=== PATIENT | male | born 1975 | race Caucasian/White ===

== ENCOUNTER 2016-06-10 10:27 | Emergency (ER) | payer OTHER ==
[~2016-06-10] VITALS: Ht 185.4 cm; Wt 128.0 kg
[~2016-06-10 10:27] MED LIST changes: -MELO7.5T5 PO
[2016-06-10 10:30] VITALS: TEMP 36.9; Ht 185.4 cm; Wt 128.0 kg
[2016-06-10 10:40] VITALS: O2SAT 99
[2016-06-10] MEDS ORDERED: NITROGLYCERIN 0.4 MG SL PER TAB CHARGE SL PRN (10:45)
--- NOTE | 2016-06-10 10:50 | EMERGENCY ROOM VISIT NOTE ---
History Report prepared by Tyson: Carlene Mae Under the Supervision of: Dr. Cuate Mccollum M.D. First contact with patient: 10:29 Stated Complaint: HYPERTENSION History of Present Illness The patient is a 41 year old male who presents to the Emergency Room with complaints of persistent hypertension that began today prior to arrival. He states that he took his blood pressure and states that it was 212 systolically. The patient states that he has not history of hypertension, denying taking anything for it. He states that recently he has been under increased stress and states that he didn't sleep well last night. The patient states that today he was talking with a patient when he felt unstable on his feet and began feeling lightheaded. He states that he became diaphoretic and additionally notes chest pain. The patient currently rates his chest pain discomfort as a 1- 2/10 in severity and denies taking any nitroglycerin prior to arrival. He states that his blood pressure typically runs around 140 mmHg systolically. The patient states that he performed an echocardiogram on himself and states that it was normal. He denies any shortness of breath since his hypertension began. The patient denies any recent cough, cold, or fever. He states that he took Sudafed this morning. Source of History: patient Onset: today prior to arrival Position: other (global) Symptom Intensity: 212 systolically Quality: other (hypertension) Timing: other (persistent) Associated Symptoms: + chest pain (1-2/10), + diaphoresis Note: Associated Symptoms: lightheadedness, unstable on feet Review of Systems All systems have been listed, reviewed, and are negative other than those previously mentioned. Please see Additional Medical History Sheet. Past Medical & Surgical Medical Problems: (1) Back pain (2) No pertinent past medical history Surgical Problems: (1) Rupture of right biceps tendon (2) Status post labral repair of shoulder Family History Hypertension Social History Smoking Status: Never Smoker Smokeless Tobacco Use: No Alcohol Use: occasionally Drug Use: none Marital Status: Housing Status: lives with family Occupation Status: employed Current/Historical Medications Scheduled Loratadine (Claritin), 10 MG PO DAILY Scheduled PRN Meloxicam (Mobic), 7.5 MG PO DAILY PRN for Pain Naproxen (Aleve), 220 MG PO for Pain Oxycodone/Acetaminophen 5MG/325MG (Percocet 5MG/325MG), 1 TABLET PO Q6H PRN for Pain Allergies Coded Allergies: No Known Allergies (Unverified , 02/05/15) Physical Exam Vital Signs Date Time Temp Pulse Resp B/P Pulse Ox O2 Delivery O2 Flow Rate FiO2 06/10/16 12:55 96 20 150/118 96 Room Air 06/10/16 12:28 91 20 130/90 98 Room Air 06/10/16 12:09 99 Room Air 06/10/16 12:06 89 20 144/89 06/10/16 11:32 95 22 06/10/16 11:27 98 27 06/10/16 11:22 103 29 06/10/16 11:17 102 19 06/10/16 11:16 136/103 06/10/16 11:13 148/106 06/10/16 11:12 106 21 06/10/16 11:07 97 23 155/112 06/10/16 11:02 106 24 06/10/16 10:57 108 20 06/10/16 10:52 88 27 06/10/16 10:47 117 25 06/10/16 10:42 95 17 97 Room Air 06/10/16 10:40 99 Room Air 06/10/16 10:37 94 26 98 Room Air 06/10/16 10:35 99 Room Air 06/10/16 10:32 93 30 99 Room Air 06/10/16 10:30 36.9 88 17 174/115 99 Room Air 06/10/16 10:29 94 Physical Exam GENERAL: Patient awake, alert, appears anxious, markedly diaphoretic. SKIN: No erythema, pallor, cyanosis or rash HEENT: Normal head, pupils equal, reactive to light and accommodation. Ears normal. Oral cavity and posterior pharynx appear normal. Neck: Without adenopathy, no neck vein distention. LUNGS: Clear to auscultation. No wheezes, no rales, no rhonchi. HEART: Regular rate. No murmurs. No gallops. No rubs ABDOMEN: No masses, no rebound, no hepatomegaly or splenomegaly. EXTREMITIES: No signs of trauma. No pedal or pretibial edema. No calf or thigh tenderness. NEUROLOGIC: Cranial nerves II-XII within normal limits. No gross motor sensory function deficits. Medical Decision & Procedures ER Provider Diagnostic Interpretation: X ray results are stated below per my interpretation and the radiologist's interpretation. CHEST ONE VIEW PORTABLE CLINICAL HISTORY: Atypical chest pain and hypertension COMPARISON STUDY: No previous studies for comparison. FINDINGS: The heart is at the upper limits of normal in size. There is no failure. There is no focal pulmonary consolidation. There are no pleural effusions.[ IMPRESSION: No active disease in the chest. Electronically signed by: Pérez Holt M.D. 06/10/2016 10:59 AM Dictated Date/Time: 06/10/2016 10:59 AM Laboratory Results 06/10/16 10:30 Red Blood Count 5.26, Mean Corpuscular Volume 92.2, Mean Corpuscular Hemoglobin 32.7, Mean Corpuscular Hemoglobin Concent 35.5, Mean Platelet Volume 10.9, Neutrophils (%) (Auto) 70.6, Lymphocytes (%) (Auto) 18.2, Monocytes (%) (Auto) 8.0, Eosinophils (%) (Auto) 1.5, Basophils (%) (Auto) 0.3, Neutrophils # (Auto) 8.08, Lymphocytes # (Auto) 2.08, Monocytes # (Auto) 0.91, Eosinophils # (Auto) 0.17, Basophils # (Auto) 0.04 06/10/16 10:30 Test 06/10/16 10:30 06/10/16 12:09 White Blood Count 11.44 K/uL (4.8-10.8) Red Blood Count 5.26 M/uL (4.7-6.1) Hemoglobin 17.2 g/dL (14.0-18.0) Hematocrit 48.5 % (42-52) Mean Corpuscular Volume 92.2 fL (80-100) Mean Corpuscular Hemoglobin 32.7 pg (25-34) Mean Corpuscular Hemoglobin Concent 35.5 g/dl (32-36) Platelet Count 255 K/uL (130-400) Mean Platelet Volume 10.9 fL (7.4-10.4) Neutrophils (%) (Auto) 70.6 % Lymphocytes (%) (Auto) 18.2 % Monocytes (%) (Auto) 8.0 % Eosinophils (%) (Auto) 1.5 % Basophils (%) (Auto) 0.3 % Neutrophils # (Auto) 8.08 K/uL (1.4-6.5) Lymphocytes # (Auto) 2.08 K/uL (1.2-3.4) Monocytes # (Auto) 0.91 K/uL (0.11-0.59) Eosinophils # (Auto) 0.17 K/uL (0-0.5) Basophils # (Auto) 0.04 K/uL (0-0.2) RDW Standard Deviation 40.9 fL (36.4-46.3) RDW Coefficient of Variation 12.1 % (11.5-14.5) Immature Granulocyte % (Auto) 1.4 % Immature Granulocyte # (Auto) 0.16 K/uL (0.00-0.02) Anion Gap 9.0 mmol/L (3-11) Est Creatinine Clear Calc Drug Dose 139.1 ml/min Estimated GFR () 109.4 Estimated GFR (Non- 94.4 BUN/Creatinine Ratio 10.0 (10-20) Calcium Level 9.3 mg/dl (8.5-10.1) Total Bilirubin 0.5 mg/dl (0.2-1) Aspartate Amino Transf (AST/SGOT) 53 U/L (15-37) Alanine Aminotransferase (ALT/SGPT) 88 U/L (12-78) Alkaline Phosphatase 98 U/L (45-117) Total Creatine Kinase 206 U/L (39-308) Creatine Kinase MB 1.6 ng/ml (0.5-3.6) Creatine Kinase MB Ratio 0.8 (0-3.0) Troponin I < 0.015 ng/ml (0-0.045) Total Protein 7.9 gm/dl (6.4-8.2) Albumin 4.0 gm/dl (3.4-5.0) Globulin 3.9 gm/dl (2.5-4.0) Albumin/Globulin Ratio 1.0 (0.9-2) Chemistry Specimen Hemolysis Bedside Troponin I 0.280 ng/ml (0-0.045) Laboratory results as stated above per my review. Medications Administered Medications (Trade) Dose Ordered Sig/Ki Route Start Time Stop Time Status Last Admin Dose Admin Nitroglycerin 0.4 mg 0.4 mg Q5M PRN SL 06/10/16 10:45 06/10/16 13:12 DC 06/10/16 11:12 0.4 MG Sodium Chloride (Nss 1000ml) 1,000 ml @ 500 mls/hr Q2H STAT IV 06/10/16 11:09 06/10/16 13:08 DC 06/10/16 11:12 500 MLS/HR ECG Indication: other (hypertension) Rate (beats per minute): 89 Rhythm: normal sinus Findings: no acute ischemic change, no ectopy Change: Repeat EKG #1 at 1026: normal sinus rhythm 91 beats per minute. No acute ischemic change, no ectopy. Repeat EKG #2 at 1225: normal sinus rhythm 85 beats per minute. no acute ischemic change, no ectopy. ED Course 1031: Past medical records reviewed. The patient was evaluated in room C4. A complete history and physical examination was performed. 1045: Ordered Nitroglycerin 0.4 mg SL. 1107: I reevaluated the patient and he is feeling about the same. He is requested fluids, noting that he feels dry. 1109: Ordered Sodium Chloride 1000 ml @ 500 mls/hr IV. 1128: I reevaluated the patient and he has no chest pain, his blood pressure has come down, and his first troponin is negative. 1240: I reevaluated the patient and I discussed his repeat troponin results. He states that he does not wish to stay for further evaluation in the hospital. I discussed the treatment plan with him and he verbalized complete understanding and agreement. He is ready to go home. Medical Decision I considered multiple diagnoses including myocardial infarction, hypertensive urgency, chest wall pain, pericarditis, myocarditis, aortic emergencies, pulmonary embolism, congestive heart failure, GI causes, and other significant cardiopulmonary disorders. The patient arrived here with chest pain diaphoresis and an elevated blood pressure. Multiple labs, EKG and imaging were obtained. History of first troponin was not elevated. His second troponin was elevated. EKGs did not change. The patient's blood pressure came down and he felt significantly better. The diaphoresis resolved. I discussed options with the patient. I believe the patient should be monitored further and possibly stressed but the patient declined that offer. We did agree to have the patient repeat his troponin later today. Again I made it clear that he should stay in the hospital until cleared. I offered the option of having a catia designer see him. The patient refused that offer and felt it necessary to return to work. Impression Primary Impression: Substernal precordial chest pain Additional Impressions: Elevated blood pressure reading Elevated troponin I level Scribe Attestation The scribe's documentation has been prepared under my direction and personally reviewed by me in its entirety. I confirm that the note above accurately reflects all work, treatment, procedures, and medical decision making performed by me. Departure Information Dispostion Home / Self-Care Referrals Christian Agrawal M.D. (PCP) Forms HOME CARE DOCUMENTATION FORM, IMPORTANT VISIT INFORMATION Patient Instructions My [facility] Additional Instructions REST Return here immediately if you have any chest pain. Repeat troponin later today. Follow-up with your family physician within the next 7 days. Problem Qualifiers
[2016-06-10 10:52] LABS: BASO % 0.3 %; BASO ABS # 0.04 K/uL (0-0.2); COMPLETE YES; EOS % 1.5 %; HEMATOCRIT 48.5 % (42-52); IG% 1.4 %; LYMPH % 18.2 %; LYMPH ABS # 2.08 K/uL (1.2-3.4); MEAN CELL VOLUME 92.2 fL (80-100); MEAN CORPUSCULAR HEMOGLOBIN 32.7 pg (25-34); MEAN CORPUSCULAR HGB CONC 35.5 g/dl (32-36); MEAN PLATELET VOLUME 10.9 fL (7.4-10.4); NEUT % 70.6 %; PLATELET COUNT 255 K/uL (130-400); RED BLOOD COUNT 5.26 M/uL (4.7-6.1); WHITE BLOOD COUNT 11.44 K/uL (4.8-10.8)
--- NOTE | 2016-06-10 11:01 | DIAGNOSTIC IMAGING REPORT ---
CHEST ONE VIEW PORTABLE CLINICAL HISTORY: Atypical chest pain and hypertension COMPARISON STUDY: No previous studies for comparison. FINDINGS: The heart is at the upper limits of normal in size. There is no failure. There is no focal pulmonary consolidation. There are no pleural effusions.[ IMPRESSION: No active disease in the chest. Electronically signed by: Pérez Holt M.D. 06/10/2016 10:59 AM Dictated Date/Time: 06/10/2016 10:59 AM
[2016-06-10] MEDS ORDERED: SODIUM CHLORIDE 0.9% 1000ML 1,000 ML IV STA (11:09)
[2016-06-10 11:18] LABS: ALT/SGPT 88 U/L (12-78); AST/SGOT 53 U/L (15-37); BLOOD UREA NITROGEN 10 mg/dl (7-18); CALCIUM 9.3 mg/dl (8.5-10.1); CARBON DIOXIDE 25 mmol/L (21-32); CHLORIDE 105 mmol/L (98-107); GLUCOSE 87 mg/dl (70-99); SODIUM 139 mmol/L (136-145)
[2016-06-10] MEDS ORDERED: MELO7.5T5 PO (11:19)
[2016-06-10 11:21] LABS: ALKALINE PHOSPHATASE 98 U/L (45-117); CKMB/CK RATIO 0.8 (0-3.0)
[2016-06-10 12:55] VITALS: BP 150/118; PULSE 96; O2SAT 96
== END 2016-06-10 12:57 | disposition home or self-care (01) ==
LOC: EDBD 10:27 → EDUNIT# 10:27 → C.EDC 10:28 → EEVIPCON 10:28 → C.EDC 12:57
DX: R07.2 Precordial pain (principal); R03.0 Elevated blood-pressure reading, without diagnosis of hypertension; R79.89 Other specified abnormal findings of blood chemistry

== ENCOUNTER → 2016-06-10 | Outpatient (CLI) | payer OTHER ==
[~2016-06-10] MED LIST: CLR10 PO; MELO7.5T5 PO; NAPR1TAB9 PO; OXYC-57 PO
--- NOTE | 2016-06-13 07:11 | EDITING REQUIRED CODING QUERY ---
TREATMENT RENDERED WITHOUT A DIAGNOSIS To promote full compliance with coding requirements relating to patient care, physician participation is requested in all cases of flight agent uncertainty. Please assist us with the question(s) below: Coding Question: DOS 06/10 Troponin Diagnosis: Chest Pain Provider Response: Thank you! Akanksha Borjas
== END | disposition home or self-care (01) ==
LOC: C.LAB 15:17
PROVIDERS: ATTEND Emergency Medicine
DX: R07.9 Chest pain, unspecified (principal)

== ENCOUNTER 2024-07-12 04:13 | Inpatient (IN) ==
[2024-07-12] MEDS ORDERED: SODIUM CHLORIDE 0.9% 50 ML IV PRN ×2 (04:35→06:54)
[2024-07-12] MEDS ORDERED: SODIUM CHLORIDE 0.9% 100 ML IV PRN ×2 (04:35→06:54)
[2024-07-12 04:38] LABS: iSTAT Creatinine 1.7 mg/dl (0.6-1.3); iSTAT Hemoglobin 12.2 g/dl (14.0-18.0); iSTAT Ionized Calcium 1.08 mmol/l (1.12-1.32); iSTAT Potassium 3.6 mmol/L (3.3-5.0)
[2024-07-12 04:56] LABS: Hematocrit (blood only) 35.8 % (42.0-52.0); Hemoglobin 10.9 g/dl (14.0-18.0); Mean Corpuscular Hemoglobin 25.9 pg (25.0-34.0); Mean Corpuscular Hgb Conc 30.4 g/dL (32.0-36.0); Nucleated RBC # (auto) 0.03 K/uL (0.00-0.12); Nucleated RBC % (auto) 0.1 %; Platelet Count 336 K/uL (130-400); RDW Coefficient of Variation 15.7 % (11.5-14.5); RDW Standard Deviation 48.4 fL (36.4-46.3); Red Blood Count 4.21 M/uL (4.70-6.10); White Blood Count 22.13 K/ul (4.8-10.8)
--- NOTE | 2024-07-12 05:13 | Emergency Department Note ---
Impression & Plan Acute hemorrhage, Hemorrhage of varicose veins of right lower extremity, Syncope and collapse ED Provider Note NAME: SARAH BETH YI AGE: 49 SEX: Male INFORMANT: Patient and EMS ED PROVIDER(S): Zeferino Harry MD CHIEF COMPLAINT: Bleeding PLAN: Disposition: Admitted to the ICU Outpatient prescription management: none Referral: None MEDICAL DECISION MAKING: Patient presented with acute hemorrhage. Source control was easily achieved with a Surgicel dressing along with a lidocaine with epinephrine soaked 2 x 2. Pressure was applied with Coban and then changed to an Kamlesh wrap. No additional hemorrhage occurred. He was hypotensive but not tachycardic. Patient notes he was in normal state of health prior to the event. IV access was obtained and the patient was started on saline fluid boluses. His initial i-STAT revealed hemoglobin of 12. Blood glucose was mildly elevated. The patient received 2 L of normal saline via pressure bag. He was hypotensive and then his blood pressure did improve up to 95 systolic. Patient was given supplemental oxygen. He initially had tachypnea and that did improve. Patient denied any pain initially but after an hour or so in the bed he noted his back was bothering him. He notes chronic back pain and this feels the same. Patient was found to have a significant leukocytosis on CBC of 22,000. His formal hemoglobin was 10.9 after the 2 L. The patient likely has hemorrhaged at least 4 units by history and the fact that his hemoglobin on the outpatient setting on epic review was over 13. A repeat H&H was ordered. Lactate ordered. Blood cultures ordered as well. By history patient denies any recent infectious issues. He noted some mild dyspnea on exertion over the last several weeks and attributed to his low back pain. Patient was not taking chronic steroids. He is not using any beta-blockers. He states he is only taking his lisinopril. Patient did admit to alcohol use and his blood alcohol level was 167 mg/dL. Additional IV fluids were administered. Consultation was made with the [facility] hospitalist service, Dr. Zuniga. Patient was evaluated in the ER. The patient remained persistently hypotensive. Serum lactate was elevated. Patient was empirically given Zosyn and daptomycin for broad-spectrum sepsis coverage although the history does not point towards an infectious etiology. CT imaging of the head was ordered due to the syncope although no significant signs of trauma were found. Patient had no neck pain. Dissection study of the chest abdomen and pelvis was ordered due to the persistent hypotension. Critical care medicine was consulted. Patient was evaluated in the emergency department by Clint Anderson NP working with Dr. Dougherty. Case was discussed and reviewed at the bedside. He asked for the patient to receive an amp of sodium bicarb as well as calcium. Patient's ionized calcium was low. He had a mild elevation of blood glucose. Patient had elevated anion gap. Discussed any ingestions with the patient and he adamantly denied anything except for ethyl alcohol. Patient had a slight elevation of cardiac troponin. Critical care asked for an empiric dose of fomepizole and this was ordered. As liter #4 was going and I did initiate IV Levophed. They did place an right radial A-line. With the additional amp of bicarb, amp of calcium, and the start of the Levophed patient's blood pressure did improve to 115 systolic via A-line. I did discuss the case with on-call cardiology, Dr. Olvera. Reviewed the history and treatment at this point. Did request for a bedside echo to be done and he agreed. Repeat cardiac troponin was elevated at 86. Patient continued to deny chest pain. His procalcitonin was normal as well. Eller catheter was ordered to monitor fluid output but also to obtain a urinalysis and talk screen. VBG was done and his pH was 7.27 and the remainder of the findings were within normal limits. Critical care also did request 1 unit of packed red blood cell transfusion this was ordered. Patient did consent to this. Patient was tired but answering questions appropriately. Patient was taken emergently to CT imaging which did not reveal a significant intracranial hemorrhage or aortic dissection. No pneumothorax seen. Official radiology read is pending at this time. Patient was transferred to the ICU for further resuscitation and management. I refer you to the EMR for further details. Care/management discussed with: Case management, lab, internal medicine, cardiology, critical care Level of care consideration(s): After review of the information above and other included data, I feel the patient requires escalation of care to ICU admission Triage Nursing notes: reviewed and agree them. Vital Signs: reviewed and remarkable for hypotension Additional History obtained from: EMS as per HPI Chronic Medical/Social Conditions affecting care: HTN Prior/ Outside/ External records reviewed: none Differential Diagnosis: Vasovagal event, dehydration, infection, hypoglycemia, electrolyte abnormalities, cardiac sources, intracerebral event, pulmonary embolism, seizure, toxicologic, neurologic, as well as other pathologies. Diagnostics, independently interpreted by me: EC Lead ECG performed and revealed NS rhythym at 82, normal [place], QRS normal. No elevation or depression. No PACs. No PVCs Cardiac Monitoring: Cardiac monitoring ordered by me: The patient was placed on continuous cardiac monitoring and observed. It revealed a normal sinus rhythm at 82 beats per minute without ectopy or evidence of dysrhythmia. Medical decision rules: none Imaging studies: Chest x-ray. Findings: A chest x-ray was performed and revealed no pneumothorax, effusion, infiltrate, pulmonary edema, free air under the diaphragm. Mediastinum is mildly widened although this is a supine study. Formal CT reads are pending: Head CT: A noncontrast CT scan of the head was performed and was negative for tumor, fracture, intracranial hemorrhage, or other acute pathology. CT dissection study is negative for aortic dissection or aneurysm per my interpretation. No obvious pneumonia or pneumothorax seen. HPI: 49 year old Male arrives for evaluation of bleeding. This started sometime around 0200 and is from a superficial varicosity in the distal RLE. Patient thinks he brushed it in the shower. Had significant bleeding. Notes becoming lightheaded and had a syncopal episode. He did call 911. First responders had to forecfully enter residence. EMS noted signifcant blood on scene but also were concerned bleeding was washed down the drain. The patient also notes the following associated symptoms, diaphoresis, weakness, The patient has received a start of a saline bolus for relieving factors. Current pain is rated as 0/10. EMS noted a pressure of 140 systolic. On arrival patient had BP of 74/52. Pt denies headache, fevers, visual changes, neck pain, chest pain, breathing difficulties, nausea, vomiting, abdominal pain, new back pain, melena, hematochezia, urinary symptoms, numbness, lymphadenopathy, rash, or other complaints. PAST MEDICAL HISTORY: See Below, HTN PAST SURGICAL HISTORY: See Below, SOCIAL HISTORY: See Below, occasional alcohol HOME MEDICATIONS: See Below ALLERGIES: See Below VITALS: See Below PHYSICAL EXAMINATION: GENERAL: Awake, ill-appearing, in distress HENT: Normocephalic, atraumatic. Oropharynx unremarkable. Blood noted at nares without TTP or septal hematoma. EYES: Normal conjunctiva. Sclera non-icteric. NECK: Inspection normal. Non-tender. Supple. No nuchal rigidity. FROM. No masses. RESPIRATORY: Clear to auscultation. No wheezes. No rales. Mildly increased respiratory effort. CARDIAC: Normal rate. Normal rhythm. No murmurs. No rubs. Extremities warm and well perfused. Pulses equal. No JVD. GI: Soft, non-distended. No tenderness to palpation. No rebound or guarding. No masses. RECTAL: Deferred. MUSCULOSKELETAL: Atraumatic upper extremities and LLE. Tiny abrasion anterior distal morales and punctate bleeding varicose vein. No tenderness to palpation of deformity. Chest examination reveals no tenderness. The back is symmetrical on inspection without obvious abnormality. There is no CVA tenderness to palpation. No joint edema. Calves are equal size bilaterally and non-tender. No edema. No discoloration. NEURO: Normal sensorium. No sensory or motor deficits noted. SKIN: No rash or jaundice noted. PROCEDURES: none CRITICAL CARE: I have personally spent 140 minutes of critical care time in the direct management of this patient. This includes bedside care, interpretation of diagnostic studies, and testing, discussion with consultants, patient, significant other and other required patient management activities. These minutes are in excess of all separately billable procedures. OBSERVATION NOTE: none Past Med/Surg History Problem List Syncope and collapse (Acute) Hemorrhage of varicose veins of right lower extremity (Acute) Acute hemorrhage (Acute) Thoracic back pain Lumbar facet arthropathy Lumbago Lumbar spinal stenosis Spasm of back muscles (Acute) Social History Smoking Status: Unknown if ever smoked Preferred Language: Bhutanese Communication Ability: Effective Feels Safe at Home: Yes Allergies Allergies Allergy/AdvReac Type Severity Reaction Status Date / Time No Known Allergies Allergy Verified 09/17/20 08:36 Home Meds Home Medications Medication Instructions Recorded Confirmed lisinopril 40 mg tablet 40 mg PO DAILY 01/17/18 11/11/20 loratadine 10 mg tablet 10 mg PO DAILY 01/17/18 11/11/20 oxycodone-acetaminophen 10 mg-325 1 tab PO Q6H PRN 08/24/20 11/11/20 mg tablet (Percocet) pregabalin 200 mg capsule 200 mg PO BID 08/24/20 11/11/20 pregabalin 50 mg capsule 50 mg PO DAILY 08/24/20 11/11/20 sertraline 100 mg tablet 100 mg PO DAILY 09/17/20 11/11/20 Results & Data (ED) Vital Signs Vital Signs - 24 hr 07/12/24 04:09 07/12/24 04:09 07/12/24 04:20 Temperature 36.5 C Temperature Source Oral Pulse Rate 79 88 Pulse Rate [Right Finger] 79 Pulse Rate from SpO2 Sensor Respiratory Rate 27 H 26 H 35 H Respiratory Effort / Characteristics Labored Blood Pressure 74/52 L 75/47 L Blood Pressure [Right Arm] 75/54 L Blood Pressure Mean 59 69 Blood Pressure Mean [Right Arm] 61 Pulse Oximetry 97 95 94 Oxygen Delivery Method Room Air Room Air Sepsis Recent Fever Within 48 Hours No Sepsis New/Unexplained Change in Mental Status No Sepsis Action Taken by Nursing No Action Required Arterial BP Systolic Arterial BP Diastolic Arterial BP Mean Arterial Pulse Rate 07/12/24 04:22 07/12/24 04:33 07/12/24 04:47 Temperature Temperature Source Pulse Rate 88 76 83 Pulse Rate [Right Finger] Pulse Rate from SpO2 Sensor Respiratory Rate 21 30 H Respiratory Effort / Characteristics Blood Pressure 54/37 L Blood Pressure [Right Arm] Blood Pressure Mean 42 Blood Pressure Mean [Right Arm] Pulse Oximetry 97 95 Oxygen Delivery Method Room Air Sepsis Recent Fever Within 48 Hours Sepsis New/Unexplained Change in Mental Status Sepsis Action Taken by Nursing Arterial BP Systolic Arterial BP Diastolic Arterial BP Mean Arterial Pulse Rate 07/12/24 05:08 07/12/24 05:21 07/12/24 05:26 Temperature Temperature Source Pulse Rate 83 81 Pulse Rate [Right Finger] 78 Pulse Rate from SpO2 Sensor Respiratory Rate 30 H 15 Respiratory Effort / Characteristics Blood Pressure 94/31 L 61/31 L Blood Pressure [Right Arm] 80/30 L Blood Pressure Mean 57 36 Blood Pressure Mean [Right Arm] 46 Pulse Oximetry 97 100 99 Oxygen Delivery Method Room Air Sepsis Recent Fever Within 48 Hours Sepsis New/Unexplained Change in Mental Status Sepsis Action Taken by Nursing Arterial BP Systolic Arterial BP Diastolic Arterial BP Mean Arterial Pulse Rate 07/12/24 05:29 07/12/24 05:43 07/12/24 05:55 Temperature Temperature Source Pulse Rate 80 75 Pulse Rate [Right Finger] Pulse Rate from SpO2 Sensor Respiratory Rate 26 H 23 Respiratory Effort / Characteristics Blood Pressure 85/26 L 61/38 L 68/32 L Blood Pressure [Right Arm] Blood Pressure Mean 49 45 41 Blood Pressure Mean [Right Arm] Pulse Oximetry 99 98 99 Oxygen Delivery Method Sepsis Recent Fever Within 48 Hours Sepsis New/Unexplained Change in Mental Status Sepsis Action Taken by Nursing Arterial BP Systolic Arterial BP Diastolic Arterial BP Mean Arterial Pulse Rate 07/12/24 06:00 07/12/24 06:10 07/12/24 06:20 Temperature Temperature Source Pulse Rate 74 72 74 Pulse Rate [Right Finger] Pulse Rate from SpO2 Sensor 73 Respiratory Rate 24 17 Respiratory Effort / Characteristics Blood Pressure 68/32 L 71/41 L 59/41 L Blood Pressure [Right Arm] Blood Pressure Mean 44 45 47 Blood Pressure Mean [Right Arm] Pulse Oximetry 99 99 100 Oxygen Delivery Method Sepsis Recent Fever Within 48 Hours Sepsis New/Unexplained Change in Mental Status Sepsis Action Taken by Nursing Arterial BP Systolic Arterial BP Diastolic Arterial BP Mean Arterial Pulse Rate 07/12/24 06:21 07/12/24 06:51 07/12/24 07:09 Temperature Temperature Source Pulse Rate 74 76 73 Pulse Rate [Right Finger] Pulse Rate from SpO2 Sensor 74 73 Respiratory Rate 17 20 23 Respiratory Effort / Characteristics Blood Pressure Blood Pressure [Right Arm] Blood Pressure Mean Blood Pressure Mean [Right Arm] Pulse Oximetry 100 100 100 Oxygen Delivery Method Sepsis Recent Fever Within 48 Hours Sepsis New/Unexplained Change in Mental Status Sepsis Action Taken by Nursing Arterial BP Systolic 123 99 Arterial BP Diastolic 54 38 Arterial BP Mean 77 53 Arterial Pulse Rate 80 72 Laboratory Data 07/12/24 06:10 07/12/24 05:02 Lab Results 07/12/24 07/12/24 07/12/24 Range/Units 04:20 04:20 04:26 WBC 22.13 H (4.8-10.8) K/ul RBC 4.21 L (4.70-6.10) M/uL Hgb 10.9 L (14.0-18.0) g/dl POC Hgb 12.2 L (14.0-18.0) g/dl Hct 35.8 L (42.0-52.0) % POC Hct 36 L (42-52) % MCV 85.0 (80.0-100.0) fL MCH 25.9 (25.0-34.0) pg MCHC 30.4 L (32.0-36.0) g/dL RDW Std Deviation 48.4 H (36.4-46.3) fL RDW Coeff of Ronal 15.7 H (11.5-14.5) % Plt Count 336 (130-400) K/uL MPV 11.0 (9.4-12.4) fL Absolute Nucleated RBC 0.03 (0.00-0.12) K/uL Nucleated RBC % (auto) 0.1 % Neutrophils % (Manual) 51 % Lymphocytes % (Manual) 36 % Monocytes % (Manual) 3 % Eosinophils % (Manual) 3 % Metamyelocytes % (Man) 4 % Myelocytes % (Man) 3 % Neutrophils # (Manual) 11.29 H (1.40-6.50) K/uL Total Absolute Neuts 11.29 H (1.4-6.5) K/uL Lymphocytes # (Manual) 7.97 H (1.2-3.4) K/uL Total Abs Lymphocytes 7.97 H (1.2-3.4) K/uL Monocytes # (Manual) 0.66 H (0.11-0.59) K/uL Eosinophils # (Manual) 0.66 H (0-0.50) K/uL Metamyelocytes # (Man) 0.89 H (0-0) K/uL Myelocytes # (Manual) 0.66 H (0-0) K/uL VBG pH (7.36-7.41) VBG pCO2 (38-50) mmHg VBG pO2 mmHg VBG HCO3 mmol/L VBG O2 Saturation % VBG Base Excess mEq/L POC Sodium 131 L (135-144) mmol/L Sodium TNP POC Potassium 3.6 (3.3-5.0) mmol/L Potassium TNP POC Chloride 99 L (101-112) mmol/L Chloride 96 L (98-107) mmol/L Carbon Dioxide 11 L (21-32) mmol/L POC Total CO2 12 L (24-31) mmol/L Anion Gap TNP POC Anion Gap 25.0 (16-25) mmol/L POC BUN 5 L (7-18) mg/dl BUN 7 (6-23) mg/dl Creatinine 1.41 H (0.6-1.4) mg/dl POC Creatinine 1.7 H (0.6-1.3) mg/dl Est Cr Clr Drug Dosing 104.8 ml/min eGFR 61.85 BUN/Creatinine Ratio 5.0 L (10-20) Glucose 214 H (70-99(Fasting)) mg/dl POC Glucose (other) 209 H (70-99) mg/dl Osmolality (280-300) mOsm/kg Lactate (0.4-2.0) mmol/L Calcium 8.7 (8.6-10.3) mg/dl POC Ioniz Calcium Praveen 1.08 L (1.12-1.32) mmol/l Magnesium TNP Total Bilirubin 0.3 (0.2-1.0) mg/dl AST TNP ALT 45 (7-52) U/L Alkaline Phosphatase TNP Troponin I High Sens 23.4 H Cancelled (0-20) pg/ml Total Protein 7.1 (6.0-8.3) gm/dl Albumin TNP Globulin TNP Albumin/Globulin Ratio TNP Procalcitonin (0-0.5) ng/ml TSH 9.314 H (0.300-4.500) uIu/ml Free T4 0.58 L (0.61-1.60) ng/dl Ethyl Alcohol mg/dL 167.9 H (<10.0) mg/dl Blood Type Blood Type Recheck Antibody Screen Crossmatch 07/12/24 07/12/24 07/12/24 Range/Units 05:02 06:10 06:12 WBC (4.8-10.8) K/ul RBC (4.70-6.10) M/uL Hgb 9.2 L (14.0-18.0) g/dl POC Hgb (14.0-18.0) g/dl Hct 29.0 L (42.0-52.0) % POC Hct (42-52) % MCV (80.0-100.0) fL MCH (25.0-34.0) pg MCHC (32.0-36.0) g/dL RDW Std Deviation (36.4-46.3) fL RDW Coeff of Ronal (11.5-14.5) % Plt Count (130-400) K/uL MPV (9.4-12.4) fL Absolute Nucleated RBC (0.00-0.12) K/uL Nucleated RBC % (auto) % Neutrophils % (Manual) % Lymphocytes % (Manual) % Monocytes % (Manual) % Eosinophils % (Manual) % Metamyelocytes % (Man) % Myelocytes % (Man) % Neutrophils # (Manual) (1.40-6.50) K/uL Total Absolute Neuts (1.4-6.5) K/uL Lymphocytes # (Manual) (1.2-3.4) K/uL Total Abs Lymphocytes (1.2-3.4) K/uL Monocytes # (Manual) (0.11-0.59) K/uL Eosinophils # (Manual) (0-0.50) K/uL Metamyelocytes # (Man) (0-0) K/uL Myelocytes # (Manual) (0-0) K/uL VBG pH (7.36-7.41) VBG pCO2 (38-50) mmHg VBG pO2 mmHg VBG HCO3 mmol/L VBG O2 Saturation % VBG Base Excess mEq/L POC Sodium (135-144) mmol/L Sodium 131 L POC Potassium (3.3-5.0) mmol/L Potassium 3.4 L POC Chloride (101-112) mmol/L Chloride (98-107) mmol/L Carbon Dioxide (21-32) mmol/L POC Total CO2 (24-31) mmol/L Anion Gap POC Anion Gap (16-25) mmol/L POC BUN (7-18) mg/dl BUN (6-23) mg/dl Creatinine (0.6-1.4) mg/dl POC Creatinine (0.6-1.3) mg/dl Est Cr Clr Drug Dosing ml/min eGFR BUN/Creatinine Ratio (10-20) Glucose (70-99(Fasting)) mg/dl POC Glucose (other) (70-99) mg/dl Osmolality 309 H (280-300) mOsm/kg Lactate 8.1 H* (0.4-2.0) mmol/L Calcium (8.6-10.3) mg/dl POC Ioniz Calcium Praveen (1.12-1.32) mmol/l Magnesium 2.6 H Total Bilirubin (0.2-1.0) mg/dl AST 47 H ALT (7-52) U/L Alkaline Phosphatase 111 H Troponin I High Sens 86.1 H* D (0-20) pg/ml Total Protein (6.0-8.3) gm/dl Albumin 3.4 Globulin Albumin/Globulin Ratio Procalcitonin 0.22 (0-0.5) ng/ml TSH (0.300-4.500) uIu/ml Free T4 (0.61-1.60) ng/dl Ethyl Alcohol mg/dL (<10.0) mg/dl Blood Type O Positive Blood Type Recheck O Positive Antibody Screen NEGATIVE Crossmatch See Detail 07/12/24 Range/Units 07:01 WBC (4.8-10.8) K/ul RBC (4.70-6.10) M/uL Hgb (14.0-18.0) g/dl POC Hgb (14.0-18.0) g/dl Hct (42.0-52.0) % POC Hct (42-52) % MCV (80.0-100.0) fL MCH (25.0-34.0) pg MCHC (32.0-36.0) g/dL RDW Std Deviation (36.4-46.3) fL RDW Coeff of Ronal (11.5-14.5) % Plt Count (130-400) K/uL MPV (9.4-12.4) fL Absolute Nucleated RBC (0.00-0.12) K/uL Nucleated RBC % (auto) % Neutrophils % (Manual) % Lymphocytes % (Manual) % Monocytes % (Manual) % Eosinophils % (Manual) % Metamyelocytes % (Man) % Myelocytes % (Man) % Neutrophils # (Manual) (1.40-6.50) K/uL Total Absolute Neuts (1.4-6.5) K/uL Lymphocytes # (Manual) (1.2-3.4) K/uL Total Abs Lymphocytes (1.2-3.4) K/uL Monocytes # (Manual) (0.11-0.59) K/uL Eosinophils # (Manual) (0-0.50) K/uL Metamyelocytes # (Man) (0-0) K/uL Myelocytes # (Manual) (0-0) K/uL VBG pH 7.27 L (7.36-7.41) VBG pCO2 40 (38-50) mmHg VBG pO2 28 mmHg VBG HCO3 18 mmol/L VBG O2 Saturation < 60.0 % VBG Base Excess -8.0 mEq/L POC Sodium (135-144) mmol/L Sodium POC Potassium (3.3-5.0) mmol/L Potassium POC Chloride (101-112) mmol/L Chloride (98-107) mmol/L Carbon Dioxide (21-32) mmol/L POC Total CO2 (24-31) mmol/L Anion Gap POC Anion Gap (16-25) mmol/L POC BUN (7-18) mg/dl BUN (6-23) mg/dl Creatinine (0.6-1.4) mg/dl POC Creatinine (0.6-1.3) mg/dl Est Cr Clr Drug Dosing ml/min eGFR BUN/Creatinine Ratio (10-20) Glucose (70-99(Fasting)) mg/dl POC Glucose (other) (70-99) mg/dl Osmolality (280-300) mOsm/kg Lactate (0.4-2.0) mmol/L Calcium (8.6-10.3) mg/dl POC Ioniz Calcium Praveen (1.12-1.32) mmol/l Magnesium Total Bilirubin (0.2-1.0) mg/dl AST ALT (7-52) U/L Alkaline Phosphatase Troponin I High Sens (0-20) pg/ml Total Protein (6.0-8.3) gm/dl Albumin Globulin Albumin/Globulin Ratio Procalcitonin (0-0.5) ng/ml TSH (0.300-4.500) uIu/ml Free T4 (0.61-1.60) ng/dl Ethyl Alcohol mg/dL (<10.0) mg/dl Blood Type Blood Type Recheck Antibody Screen Crossmatch Administered Medications Sodium Chloride (Nss) 1,000 mls @ 125 mls/hr IV .Q8H FATOU Stop: 07/13/24 04:44 Last Admin: 07/12/24 06:26 Dose: Not Given Documented By: CTK Norepinephrine Bitartrate (Levophed/D5w) 4 mg in 250 mls @ 31.8 mls/hr IV .Q7H52M FATOU; Protocol Stop: 08/11/24 06:29 Last Titration: 07/12/24 07:03 Dose: 0.05 mcg/kg/min, 31.8 mls/hr Documented By: JERRELLK Co-signed By: LAF Titration: 07/12/24 06:54 Dose: 0.04 mcg/kg/min, 25.4 mls/hr Documented By: CTK Co-signed By: CELESTINE Admin: 07/12/24 06:43 Dose: 0.06 mcg/kg/min, 38.2 mls/hr Documented By: CTK Co-signed By: ROLANDO Discontinued Medications Sodium Chloride (Nss) 1,000 mls @ 999 mls/hr IV .Q1H1M ONE Stop: 07/12/24 05:36 Last Infusion: 07/12/24 06:16 Dose: Infused Documented By: Admin: 07/12/24 05:18 Dose: 999 mls/hr Documented By: CTK Sodium Chloride (Nss) 1,000 mls @ 999 mls/hr IV .Q1H1M ONE Stop: 07/12/24 06:17 Last Infusion: 07/12/24 06:16 Dose: Infused Documented By: Admin: 07/12/24 05:19 Dose: 999 mls/hr Documented By: JERRELLK Sodium Chloride (Nss) 1,000 mls @ 999 mls/hr IV .Q1H1M ONE Stop: 07/12/24 06:30 Last Infusion: 07/12/24 06:56 Dose: Infused Documented By: Admin: 07/12/24 05:32 Dose: 999 mls/hr Documented By: CTK Sodium Chloride (Nss) 1,000 mls @ 999 mls/hr IV .Q1H1M ONE Stop: 07/12/24 07:14 Last Admin: 07/12/24 06:15 Dose: 999 mls/hr Documented By: JERRELLK Thiamine HCl 100 mg/ Syringe 10 mls @ 2 mls/min IV NOW STA Stop: 07/12/24 06:24 Last Admin: 07/12/24 07:05 Dose: 2 mls/min Documented By: JAY Folic Acid 1 mg/ Syringe 10 mls @ 5 mls/min IV NOW STA Stop: 07/12/24 06:21 Last Admin: 07/12/24 07:05 Dose: 5 mls/min Documented By: JERRELLK Calcium Gluconate () 1,000 mg in 60 mls @ 240 mls/hr IV NOW STA Stop: 07/12/24 06:34 Last Infusion: 07/12/24 06:56 Dose: Infused Documented By: Admin: 07/12/24 06:30 Dose: 240 mls/hr Documented By: Infusion: 07/12/24 06:30 Dose: Infused Documented By: Admin: 07/12/24 06:24 Dose: 240 mls/hr Documented By: CTK Calcium Gluconate () 1,000 mg in 60 mls @ 240 mls/hr IV NOW STA Stop: 07/12/24 06:37 Last Admin: 07/12/24 06:46 Dose: Not Given Documented By: JERRELLK Ioversol (Optiray 320 125ml) 112 ml IV ONCE ONE Stop: 07/12/24 07:17 Last Admin: 07/12/24 07:16 Dose: 112 ml Documented By: GABINO Lidocaine/Epinephrine (Lidocaine 1%/Epinephrine 1:100,000 50 Ml Vial) 3 ml INFIL NOW ONE Stop: 07/12/24 04:34 Last Admin: 07/12/24 05:30 Dose: 3 ml Documented By: TATIANA Sodium Bicarbonate (Sodium Bicarb 8.4% Inj 50 Meq/50 Ml Syr) 50 meq IV NOW STA Stop: 07/12/24 06:21 Last Admin: 07/12/24 06:24 Dose: 50 meq Documented By: JAY Sodium Bicarbonate (Sodium Bicarb 8.4% Inj 50 Meq/50 Ml Syr) 50 meq IV NOW STA Stop: 07/12/24 06:45 Last Admin: 07/12/24 06:45 Dose: 50 meq Documented By: JAY Imaging Data Radiologist's Impression: Chest X-Ray 07/12/24 04:33 EXAM: XR chest 1V portable CLINICAL HISTORY: SB, hemorrhage. TECHNIQUE: An X-ray image of the chest is obtained in AP projection. COMPARISON: No prior studies are available for comparison. FINDINGS: Pulmonary Parenchyma: Lungs are clear bilaterally. No evidence of consolidation, collapse, or focal opacities. No pulmonary nodules are identified. No evidence of pleural effusion or pleural thickening. Heart and Mediastinum: Enlarged heart size, widening of mediastinum noted. Bony Thorax: Bony thorax appears intact without fractures or deformities. IMPRESSION: 1. Enlarged heart size, and widening of mediastinum noted. 2. Clinical correlation and further evaluation are advised. Electronically signed by Robin Leon 07-12-2024 05:57 AM Discharge Plan Visit Data Chief Complaint: Bleeding ED Provider: Zeferino Harry Discharge Problem: Acute hemorrhage, Hemorrhage of varicose veins of right lower extremity, Syncope and collapse Patient Disposition: Admitted As Inpatient Forms Stand Alone Forms: [facility] Referrals Referrals: Deshaun Pop MD [Primary Care Provider] -
[2024-07-12] MEDS: SODIUM CHLORIDE 0.9% 1,000 ML IV ONE ×4 (05:18→06:15)
[2024-07-12 05:28] LABS: Potassium 3.4 mmol/L (3.5-5.1)
[2024-07-12] MEDS: LIDOCAINE 1%/EPINEPHRINE 1:100,000 50 ML VIAL INFIL ONE (05:30)
[2024-07-12 05:41] LABS: Alanine Aminotransferase 45 U/L (7-52); Bilirubin,Total 0.3 mg/dl (0.2-1.0); Blood Urea Nitrogen 7 mg/dl (6-23); Calcium 8.7 mg/dl (8.6-10.3); Carbon Dioxide 11 mmol/L (21-32); Chloride 96 mmol/L (98-107); Creatinine Clr Calc Pharmacy 104.8 ml/min; Glucose 214 mg/dl (70-99(Fasting)); Thyroid Stimulating Hormone 9.314 uIu/ml (0.300-4.500); Total Protein 7.1 gm/dl (6.0-8.3); Troponin I High Sensitivity 23.4 pg/ml (0-20)
--- NOTE | 2024-07-12 05:57 | XRay Report ---
EXAM: XR chest 1V portable CLINICAL HISTORY: SB, hemorrhage. TECHNIQUE: An X-ray image of the chest is obtained in AP projection. COMPARISON: No prior studies are available for comparison. FINDINGS: Pulmonary Parenchyma: Lungs are clear bilaterally. No evidence of consolidation, collapse, or focal opacities. No pulmonary nodules are identified. No evidence of pleural effusion or pleural thickening. Heart and Mediastinum: Enlarged heart size, widening of mediastinum noted. Bony Thorax: Bony thorax appears intact without fractures or deformities. IMPRESSION: 1. Enlarged heart size, and widening of mediastinum noted. 2. Clinical correlation and further evaluation are advised. Electronically signed by Robin Leon 07-12-2024 05:57 AM
[2024-07-12 05:58] LABS: Albumin Level 3.4 gm/dl (3.4-5.0); Magnesium 2.6 mg/dl (1.7-2.4)
[2024-07-12 05:59] LABS: ALC (manual) 7.97 K/uL (1.2-3.4); ANC (manual) 11.29 K/uL (1.4-6.5); Eosinophils # (manual) 0.66 K/uL (0-0.50); Eosinophils % (manual) 3 %; Lymphocytes # (manual) 7.97 K/uL (1.2-3.4); Lymphocytes % (manual) 36 %; Metamyelocytes # (manual) 0.89 K/uL (0-0); Metamyelocytes % (manual) 4 %; Monocytes # (manual) 0.66 K/uL (0.11-0.59); Monocytes % (manual) 3 %; Myelocytes # (manual) 0.66 K/uL (0-0); Myelocytes % (manual) 3 %; Neutrophils # (manual) 11.29 K/uL (1.40-6.50); Neutrophils % (manual) 51 %
[2024-07-12 06:23] LABS: Hemoglobin 9.2 g/dl (14.0-18.0)
[2024-07-12] MEDS: CALCIUM GLUCONATE 1,000 MG/60 ML BAG IV STA ×2 (06:24→06:46)
[2024-07-12] MEDS: SODIUM BICARB 8.4% INJ 50 MEQ/50 ML SYR IV STA ×2 (06:24→06:45)
[2024-07-12] MEDS: SODIUM CHLORIDE 0.9% 1,000 ML IV SCH (06:26)
[2024-07-12 06:38] LABS: T4 Free Thyroxine 0.58 ng/dl (0.61-1.60)
[2024-07-12] MEDS ORDERED: DAPTOMYCIN IV ONE (06:41)
[2024-07-12] MEDS: NOREPINEPHRINE/D5W 4 MG/250 ML PLCT IV SCH (06:43)
[2024-07-12] MEDS: THIAMINE HCL 100 MG in SYRINGE 9 ML IV STA (07:05)
[2024-07-12] MEDS: FOLIC ACID 1 MG in SYRINGE 9.8 ML IV STA (07:05)
[2024-07-12 07:13] LABS: HCO3 VBG 18 mmol/L; Oxygen Saturation VBG < 60.0 %; PCO2 VBG 40 mmHg (38-50); PO2 VBG 28 mmHg; pH VBG 7.27 (7.36-7.41)
[2024-07-12] MEDS: OPTIRAY 320 125ml IV ONE (07:16)
--- NOTE | 2024-07-12 07:18 | Critical Care Consultation ---
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 To the ICU for vasopressors, resuscitation and further workup for hypotension and metabolic acidosis. Neuro - Alcohol level elevated, somnolent CAM ICU: Negative - Patient awakens easily and is appropriate, he is able to recall events - ETOH level 167.7- tox screen pending as well - HE does have access to narcotics- if mentation deteriorates would provide narcan - monitor for ETOH withdraw- defer CIWAs at this time until ETOH level drops as well as vasopressors weaned Cardiac - Shock, elevated HsCTNI - Shock- multifactorial at this time- likely hypovolemic in light of bleeding from varicosity with unknown time from calling EMS, synopsizing and arriving to ER - received 4L crystalloid and will receive 1-2 units of blood pending clinical response - can't exclude an infectious cause at this time, however initial review of CXR, physical exam and ROS don't appear at this time to favor- will provide 24- 48 hour abx coverage until excluded - Vasopressors to maintain MAP > 65- LEVOphed, would add vasopressin as 2nd agent if needed - Bedside POCUS without effusion and overall contractility appears well- formal ECHO being obtained on arrival to ICU - ECG reviewed- no ST changes, and patient denies chest pain - For his refractory shock and elevated ETOH level, lactate, and GUIDO- provide dose of Fomepizole at this time - see renal section for further discussion - trend HGB level following transfusion - Bleeding has been stopped with ER interventions at this time- once stablized- consider venogram/duplex for possible interventions to varicosities- risk factors- obesity, prolonged standing Respiratory - No acute distress, Hx VANE - CTA of chest pending read- my interpretation is poorly timed study- no effusions or opacities noted - CPAP 10 cm H20 at night GI - No acute needs - enlarged liver on imaging likely component of ETOH and Fatty liver - LFTS normal - LFTS - mildly elevated AST RENAL/LYTES - GUIDO, Metabolic Acidosis, Lactic acidosis - 2 amps bicarb provided- with PH following these of 7.27 and HCO3 on VBG increased to 18- glucose 214- likely not high enough to cause DKA - ASA and Tylenol levels sent - Tox screen pending - GUIDO with lactate 8.1 ETOH 167- Fomepizole now - serum osmo 309, urine osmo is pending- defer further doses pending clinical response to above resuscitation - Possible tox/ingestion with persistent hypotension and blunted tachycardia- follow acid base, renal function, HGB levels, and mentation - No acute needs - Harvey placed to track urine output while on vasopressors and assist in guiding resuscitation - UA and urine tox- pending ENDO - Hyperglycemia without diagnosis of diabetes - ICU hyper/hypoglycemic protocol HEME - Hemorrhage from peripheral varicosity ID- Can't completely rule out septic cause at this time - Continue abx until clinical course becomes more clear LINES/IV ACCESS - PIV, Arterial line, harvey Continue use of these lines DVT PROPHYLAXIS - SCDS, hold further chemoprophylaxis until hemorrhaging ensured resolution DISPO: ICU until hemodynamics proven stable and tox/sepsis pathology ruled out Supervising Physician Co-Signing Physician Notes Patient separately seen and examined from WILLIAM. Agree with the above note aside for any additions/exceptions noted: Patient's shock state appears to be resolving with blood transfusion. Will repeat a CBC and BMP now. Continuous IV fluids discontinued. Wean Levophed as able. Maintain MAP above 65 mmHg. Folic acid and thiamine started as well given positive ethanol level. Urine drug screen pending. Alcohol withdrawal protocol initiated. Echo reviewed. EF normal and hyperdynamic. No wall motion abnormalities. CT abdomen pelvis did reveal an incidental elliptical shaped anterior abdominal wall fluid collection measuring 10 cm. I discussed with this with Dr. Montrell Sands radiology who indicated that this fluid collection was present on prior CT images and is likely not of acute concern. This can be followed up on as an outpatient. Advance diet as tolerated. No evidence of further bleeding from right lower extremity where variceal bleed was noted. Continue pressure bandage. Recheck hemoglobin. Probable downgrade out of the ICU later today. CRITICAL CARE TIME I have personally spent 48 minutes of critical care time in the direct management of this patient. This is a life/limb threatening event. This includes time spent evaluating patient, direct bedside care, chart review, placing orders, interpretation of diagnostic studies, discussion with consultants, patient, and family members, as well as other required patient management activities. This time is exclusive of all separately billable procedures, and teaching time and separate from and in addition to any other critical care service time. History of Present Illness Reason for Consultation: shock Requesting Physician: Zeferino Harry Attending Physician: Jose Francisco Zuniga MD History of Present Illness 49 YOM presents to the EMD via EMS following syncopizing at home after rupturing a peripheral varicosity on his right ankle in the shower. Patient was noted to be hypotensive 70/40s on arrival and down to 60s/40s, reportedly he was diaphoretic as well on arrival. Patient seen following call from ER physician relating to patient still remaining hypotensive in light of 4L of crystalloid. Labs reviewed noting dropping hemoglobin level, Guido, HCO3 of 11, AG not performed, and ETOH of 167. Requested patient get blood product in light of hemorrhage as well as hypotensive with organ dysfunction. On arrival to ER patient was awake and conversant but somnolent. BPs remained 70s/40s, requested 2 amps of HCO3, VBG, Lactate, serum osmo, and Levophed be started. Arterial line was placed following discussion with patient (See seperate procedure note). While placing arterial line, lactate returned at 8.1- requested patient be given dose of fomepizole in light of acidosis, GUIDO and ETOH level. Patient BP responded well to Levophed and mentation improved. Patient will be brought to the ICU to continue shock workup and weaning of vasopressors. Formal ECHO pending CODE: FULL Allergies Allergy/AdvReac Type Severity Reaction Status Date / Time No Known Allergies Allergy Verified 09/17/20 08:36 Home Medications Medication Instructions Recorded Confirmed Type lisinopril 40 mg tablet 40 mg PO DAILY 07/12/24 07/12/24 History meloxicam 7.5 mg tablet 7.5 - 15 mg PO DAILY PRN Pain 07/12/24 07/12/24 History oxycodone 10 mg tablet 10 mg PO Q6H PRN Severe Pain 07/12/24 07/12/24 History (Scale Score 7-10) pregabalin 200 mg capsule 200 mg PO BID 07/12/24 07/12/24 History sertraline 100 mg tablet 200 mg PO DAILY 07/12/24 07/12/24 History zolpidem 10 mg tablet 10 mg PO HS PRN Insomnia 07/12/24 07/12/24 History Patient History Social History Smoking Status: Never smoker Second Hand Exposure: No; Do You Dip or Chew Tobacco: No; Tobacco Cessation Education Requested by Patient: No Hx Alcohol Use: Yes Alcohol type: other Hx Substance Use: No Preferred Language: Czech Communication Ability: Effective Facilities Custodian Required: No Beliefs That Will Affect Care: None Current Living Situation: Alone Other Information That Helps Us Care for You: No Feels Safe at Home: Yes Safety Concerns: Feels Safe At This Time Assistive Devices: CPAP Review of Systems Review of Systems: REVIEW OF SYSTEMS: Constitutional: No fever, sweats or chills Eyes: No diplopia, no worsening or blurred vision ENT: normal hearing, no trouble swallowing Respiratory: (+) SOB prior to synopsizing, No cough, sputum, dyspnea at rest or on exertion Cardiovascular: No chest pain, tightness or palpitations Abdomen: No pain, nausea, vomiting, diarrhea or constipation Musculoskeletal: (+) chronic back pain, No joint pain, calf pain, swelling Neurologic: No weakness, numbness/tingling, or balance problems Psychiatric: (+) depression Skin: (+) wrap to right ankle, blood on legs, feet, face Physical Exam Physical Exam: PHYSICAL EXAM: General: somnolent, no apparent distress Head: Normocephalic, atraumatic ENT: PERRLA, EOMI, no pharyngeal exudate, mucous membranes dry Neuro: AAO x 3, speech clear and appropriate, strength intact bilaterally 5/5, sensation intact and equal all extremities and dermatomes, no pronator drift Chest: equal rise and fall of the chest, no accessory muscle use, no heaves or thrills, Clear to auscultation, on room air, Cardiac: Regular rate and rhythm, telemetry reviewed-NSR no ectopy, skin warm dry, cap refill ~3 seconds, peripheral pulses +1 no JVD, no murmur, no edema GI: NABS x 4 quadrants, soft, nontender to palpation, no rebound, guarding or tenderness : pending harvey, no pain, no CVA tenderness, Extremities: Normal inspection, no peripheral edema or erythema, calfs nontender to palpation Psych: Normal mood and affect Skin: no rash or erythema Results & Data Results & Data Vital Signs (Past 12 Hours) Vital Signs Temp Pulse Pulse Resp BP BP Pulse Ox 07/12/24 06:51 76 20 100 07/12/24 06:21 74 17 100 07/12/24 06:20 74 17 59/41 L 100 07/12/24 06:10 72 71/41 L 99 07/12/24 06:00 74 24 68/32 L 99 07/12/24 05:55 75 23 68/32 L 99 07/12/24 05:43 26 H 61/38 L 98 07/12/24 05:29 80 85/26 L 99 07/12/24 05:26 81 15 61/31 L 99 07/12/24 05:21 78 30 H 80/30 L 100 07/12/24 05:08 83 94/31 L 97 07/12/24 04:47 83 30 H 54/37 L 95 07/12/24 04:33 76 21 97 07/12/24 04:22 88 07/12/24 04:20 88 35 H 75/47 L 94 07/12/24 04:09 79 26 H 75/54 L 95 07/12/24 04:09 36.5 C 79 27 H 74/52 L 97 O2 Del Method 07/12/24 06:51 07/12/24 06:21 07/12/24 06:20 07/12/24 06:10 07/12/24 06:00 07/12/24 05:55 07/12/24 05:43 07/12/24 05:29 07/12/24 05:26 07/12/24 05:21 Room Air 07/12/24 05:08 07/12/24 04:47 07/12/24 04:33 Room Air 07/12/24 04:22 07/12/24 04:20 07/12/24 04:09 Room Air 07/12/24 04:09 Room Air Laboratory Results Abnormal lab results 07/12/24 07/12/24 07/12/24 Range/Units 04:20 04:26 05:02 WBC 22.13 H (4.8-10.8) K/ul RBC 4.21 L (4.70-6.10) M/uL Hgb 10.9 L (14.0-18.0) g/dl POC Hgb 12.2 L (14.0-18.0) g/dl Hct 35.8 L (42.0-52.0) % POC Hct 36 L (42-52) % MCHC 30.4 L (32.0-36.0) g/dL RDW Std Deviation 48.4 H (36.4-46.3) fL RDW Coeff of Ronal 15.7 H (11.5-14.5) % Neutrophils # (Manual) 11.29 H (1.40-6.50) K/uL Total Absolute Neuts 11.29 H (1.4-6.5) K/uL Lymphocytes # (Manual) 7.97 H (1.2-3.4) K/uL Total Abs Lymphocytes 7.97 H (1.2-3.4) K/uL Monocytes # (Manual) 0.66 H (0.11-0.59) K/uL Eosinophils # (Manual) 0.66 H (0-0.50) K/uL Metamyelocytes # (Man) 0.89 H (0-0) K/uL Myelocytes # (Manual) 0.66 H (0-0) K/uL VBG pH (7.36-7.41) POC Sodium 131 L (135-144) mmol/L Sodium 131 L (136-145) mmol/L Potassium 3.4 L (3.5-5.1) mmol/L POC Chloride 99 L (101-112) mmol/L Chloride 96 L (98-107) mmol/L Carbon Dioxide 11 L (21-32) mmol/L POC Total CO2 12 L (24-31) mmol/L POC BUN 5 L (7-18) mg/dl Creatinine 1.41 H (0.6-1.4) mg/dl POC Creatinine 1.7 H (0.6-1.3) mg/dl BUN/Creatinine Ratio 5.0 L (10-20) Glucose 214 H (70-99(Fasting)) mg/dl POC Glucose (other) 209 H (70-99) mg/dl Osmolality (280-300) mOsm/kg Lactate (0.4-2.0) mmol/L POC Ioniz Calcium Praveen 1.08 L (1.12-1.32) mmol/l Magnesium 2.6 H (1.7-2.4) mg/dl AST 47 H (13-39) U/L Alkaline Phosphatase 111 H (34-104) U/L Troponin I High Sens 23.4 H (0-20) pg/ml TSH 9.314 H (0.300-4.500) uIu/ml Free T4 0.58 L (0.61-1.60) ng/dl Ethyl Alcohol mg/dL 167.9 H (<10.0) mg/dl Crossmatch See Detail 07/12/24 07/12/24 Range/Units 06:10 07:01 WBC (4.8-10.8) K/ul RBC (4.70-6.10) M/uL Hgb 9.2 L (14.0-18.0) g/dl POC Hgb (14.0-18.0) g/dl Hct 29.0 L (42.0-52.0) % POC Hct (42-52) % MCHC (32.0-36.0) g/dL RDW Std Deviation (36.4-46.3) fL RDW Coeff of Ronal (11.5-14.5) % Neutrophils # (Manual) (1.40-6.50) K/uL Total Absolute Neuts (1.4-6.5) K/uL Lymphocytes # (Manual) (1.2-3.4) K/uL Total Abs Lymphocytes (1.2-3.4) K/uL Monocytes # (Manual) (0.11-0.59) K/uL Eosinophils # (Manual) (0-0.50) K/uL Metamyelocytes # (Man) (0-0) K/uL Myelocytes # (Manual) (0-0) K/uL VBG pH 7.27 L (7.36-7.41) POC Sodium (135-144) mmol/L Sodium (136-145) mmol/L Potassium (3.5-5.1) mmol/L POC Chloride (101-112) mmol/L Chloride (98-107) mmol/L Carbon Dioxide (21-32) mmol/L POC Total CO2 (24-31) mmol/L POC BUN (7-18) mg/dl Creatinine (0.6-1.4) mg/dl POC Creatinine (0.6-1.3) mg/dl BUN/Creatinine Ratio (10-20) Glucose (70-99(Fasting)) mg/dl POC Glucose (other) (70-99) mg/dl Osmolality 309 H (280-300) mOsm/kg Lactate 8.1 H* (0.4-2.0) mmol/L POC Ioniz Calcium Praveen (1.12-1.32) mmol/l Magnesium (1.7-2.4) mg/dl AST (13-39) U/L Alkaline Phosphatase (34-104) U/L Troponin I High Sens 86.1 H* D (0-20) pg/ml TSH (0.300-4.500) uIu/ml Free T4 (0.61-1.60) ng/dl Ethyl Alcohol mg/dL (<10.0) mg/dl Crossmatch Diagnostic Findings Pending studies of CTA chest, CTA abd/pelvis, CT head Medications Administered Sodium Chloride (Nss) 1,000 mls @ 125 mls/hr IV .Q8H FATOU Stop: 07/13/24 04:44 Last Admin: 07/12/24 06:26 Dose: Not Given Documented By: JAY Norepinephrine Bitartrate (Levophed/D5w) 4 mg in 250 mls @ 31.8 mls/hr IV .Q7H52M [facility]; Protocol Stop: 08/11/24 06:29 Last Titration: 07/12/24 07:03 Dose: 0.05 mcg/kg/min, 31.8 mls/hr Documented By: JAY Co-signed By: PRERNA Titration: 07/12/24 06:54 Dose: 0.04 mcg/kg/min, 25.4 mls/hr Documented By: JAY Co-signed By: ROLANDO Admin: 07/12/24 06:43 Dose: 0.06 mcg/kg/min, 38.2 mls/hr Documented By: CTK Co-signed By: ROLANOD Discontinued Medications Sodium Chloride (Nss) 1,000 mls @ 999 mls/hr IV .Q1H1M ONE Stop: 07/12/24 05:36 Last Infusion: 07/12/24 06:16 Dose: Infused Documented By: Admin: 07/12/24 05:18 Dose: 999 mls/hr Documented By: JAY Sodium Chloride (Nss) 1,000 mls @ 999 mls/hr IV .Q1H1M ONE Stop: 07/12/24 06:17 Last Infusion: 07/12/24 06:16 Dose: Infused Documented By: Admin: 07/12/24 05:19 Dose: 999 mls/hr Documented By: JAY Sodium Chloride (Nss) 1,000 mls @ 999 mls/hr IV .Q1H1M ONE Stop: 07/12/24 06:30 Last Infusion: 07/12/24 06:56 Dose: Infused Documented By: Admin: 07/12/24 05:32 Dose: 999 mls/hr Documented By: JAY Sodium Chloride (Nss) 1,000 mls @ 999 mls/hr IV .Q1H1M ONE Stop: 07/12/24 07:14 Last Admin: 07/12/24 06:15 Dose: 999 mls/hr Documented By: JAY Thiamine HCl 100 mg/ Syringe 10 mls @ 2 mls/min IV NOW STA Stop: 07/12/24 06:24 Last Admin: 07/12/24 07:05 Dose: 2 mls/min Documented By: JAY Folic Acid 1 mg/ Syringe 10 mls @ 5 mls/min IV NOW STA Stop: 07/12/24 06:21 Last Admin: 07/12/24 07:05 Dose: 5 mls/min Documented By: JAY Calcium Gluconate () 1,000 mg in 60 mls @ 240 mls/hr IV NOW STA Stop: 07/12/24 06:34 Last Infusion: 07/12/24 06:56 Dose: Infused Documented By: Admin: 07/12/24 06:30 Dose: 240 mls/hr Documented By: Infusion: 07/12/24 06:30 Dose: Infused Documented By: Admin: 07/12/24 06:24 Dose: 240 mls/hr Documented By: JAY Calcium Gluconate () 1,000 mg in 60 mls @ 240 mls/hr IV NOW STA Stop: 07/12/24 06:37 Last Admin: 07/12/24 06:46 Dose: Not Given Documented By: CTK Ioversol (Optiray 320 125ml) 112 ml IV ONCE ONE Stop: 07/12/24 07:17 Last Admin: 07/12/24 07:16 Dose: 112 ml Documented By: GABINO Lidocaine/Epinephrine (Lidocaine 1%/Epinephrine 1:100,000 50 Ml Vial) 3 ml INFIL NOW ONE Stop: 07/12/24 04:34 Last Admin: 07/12/24 05:30 Dose: 3 ml Documented By: TATIANA Sodium Bicarbonate (Sodium Bicarb 8.4% Inj 50 Meq/50 Ml Syr) 50 meq IV NOW STA Stop: 07/12/24 06:21 Last Admin: 07/12/24 06:24 Dose: 50 meq Documented By: JAY Sodium Bicarbonate (Sodium Bicarb 8.4% Inj 50 Meq/50 Ml Syr) 50 meq IV NOW STA Stop: 07/12/24 06:45 Last Admin: 07/12/24 06:45 Dose: 50 meq Documented By: JAY ECG Additional Comments: Normal sinus rhythm Normal ECG Coding Level of Care Code 99313 CRITICAL CARE 1ST 30-74M Diagnoses Shock R57.9 Syncope and collapse R55 Hemorrhage of varicose veins of right lower extremity I83.891 Blood alcohol level of 120-199 mg/100 ml Y90.6 GUIDO (acute kidney injury) N17.9 Metabolic acidosis E87.20 Lactic acidosis E87.20 Elevated troponin R79.89 Time Spent (min) 48
--- NOTE | 2024-07-12 07:18 | Procedure Note ---
Procedure Note Date of Service July 12, 2024 Procedure: Arterial Line Placement Proceduralist: Jacinto BERMUDEZ ([facility]-) Attending: Dr. Dougherty Indication: Monitoring on Pressors Anesthesia: [x]Lidocaine 1% Verbal Consent was obtained from the patient as delegated to me by Dr. Dougherty. Risks and benefits started to be discussed and patient stated he understands need, risks and the benefits and agrees to procedure. A time-out was completed verifying correct patient, procedure, site, posi tioning. Allens test was performed to ensure adequate perfusion. Patients RIGHT wrist was prepped and draped in the usual sterile fashion. Ultrasound guidance was used to aid needle placement. A 20g Arrow arterial line was introduced into the RIGHT RADIAL artery x1 attempt, brisk flash of arterial blood was noted, the wire was advanced without resistance and the catheter was threaded. The needle was removed with appropriate blood return and attached to pressure tubing and transduced. A Good waveform was observed. The patient tolerated the procedure well. The line was secured in place with suture and sterile dressing was applied. Blood Loss: Minimal Complications: None immediate Artery Identified: YES Complications: NONE Patient tolerated procedure: WELL Images not saved to medical record as procedure was done urgently as well as patient was still in ER. [facility] [place] Procedure Codes (Charges) Tubes, Drains, and Vasc Access Procedure 1: Tubes, Drains, and Vasc Access: [id number] Arterial Cath/Cannulation Sampling/Monitoring/Transfusion Coding CPT Codes Tubes, Drains, and Vasc Access - Tubes, Drains, and Vasc Access: [id number] Arterial Cath/Cannulation Sampling/Monitoring/Transfusion ([id number]) Additional Codes Date of Service ([facility].SURGERY)
--- NOTE | 2024-07-12 07:54 | History & Physical Report ---
Date of Service July 12, 2024 Assessment & Plan (1) Syncope and collapse: Plan: 49-year-old male with past medical history significant for prediabetes, hypertension, obesity, obstructive sleep apnea on CPAP, lumbar degenerative disc disease, lumbar spinal stenosis ,nontraumatic incomplete tear of left rotator cuff, insomnia, generalized anxiety disorder comes because of syncope and bleeding from the right lower leg varicose vein. Patient says he was in the shower and the varicose veins of right distal leg popped open. Patient thought the bleeding will stop and waited for some time but did not stop. Patient says he passed out on the floor and did not know how long he passed out. Patient when he woke up called 911 and did not have enough strength to get up and open the door. First responders seem to have to force open into the house.EMS noted significant blood loss at the scene. Patient was diaphoretic. Patient was brought to the ER and control of bleeding was easily achieved with lidocaine with epinephrine. Pressure was applied with Coban and then changed to kenneth wrap as per ER. Hemorrhage seems to be stopped. But patient was hypotensive. Heart rates were okay. Initial hemoglobin is 10.9. Outpatient labs shows hemoglobin around 15. Patient says he was doing okay until this happened. No recent fevers. Denies cough. Has some exertional shortness of breath attributed to back pain. No recent nausea/ vomiting. Appetite is okay. No diarrhea. No blood in the stools. Was micturating okay. In the ER even after 3 L of fluid bolus his blood pressure was still low. ICU was contacted. Patient was started on Levophed drip. A-line was placed. Blood pressure improved with Levophed drip. White count came back 22.13. Repeat hemoglobin was 9.2. VBG came pH of 7.27. Sodium 131. Potassium 3.4. CO2 11. Creatinine 1.4. Lactate 8.1. Serum Osmolality 309. Glucose 214. Magnesium 2.6. Ionized calcium 1.08. Initial troponin 23. Repeat troponin 86. TSH is 9.3 and free T4 0.5. Ethyl alcohol 167.Two Amp of bicarb and calcium gluconate was given in the ER by critical care. Empiric antibiotics Dapto and Zosyn were started. Patient somewhat drowsy but answering appropriately and able to give history. Syncope and collapse Shock Acute blood loss anemia. Hemoglobin 9.2 Bleeding from the right distal varicose vein ,currently stopped Metabolic acidosis Lactic acidosis. Lactic is 8.1 and repeat lactic is 3.7 Received 4 L of IV normal saline Plan for 1 to 2 units of PRBC. Monitor H&H Patient was started on Levophed drip for persistent hypotension 2 to amp of bicarb and calcium gluconate were given Empiric antibiotics Dapto and Zosyn Rule out sepsis Follow cultures Close monitor hemodynamics Patient on zolpidem as needed and oxycodone as needed at home Received a dose of fomepizole. Will follow CT head, CTA chest and abdomen pelvis Appreciate critical care help Elevated troponin Mostly demand ischemia Will follow serial enzymes and echo Cardiology consulted Obstructive sleep apnea Obesity On CPAP nightly Alcoholism Alcohol 167 Ordered a dose of thiamine and folic acid Closely monitor for any withdrawals GUIDO Creatinine 1.4 Avoid nephrotoxic agents Getting fluids Will follow repeat labs History of prediabetes Sugars are in 200s Will follow HbA1c levels Sliding scale for now Abnormal thyroid function TSH 9.3 Free T4 0.58 Can repeat labs Can start on Synthyroid Back pain Degenerative disc disease Lumbar spinal stenosis Will hold home pain medications Generalized anxiety disorder Hold Zoloft for now Hypertension Hold lisinopril as patient currently hypotensive DVT prophylaxis SCDs on left leg Disposition Close monitoring ICU Level 1 full code History of Present Illness Chief Complaint: Syncope, hypotension, bleeding. Primary Care Provider: Deshaun Pop MD 49-year-old male with past medical history significant for prediabetes, hypertension, obesity, obstructive sleep apnea on CPAP, lumbar degenerative disc disease, lumbar spinal stenosis ,nontraumatic incomplete tear of left rotator cuff, insomnia, generalized anxiety disorder comes because of syncope and bleeding from the right lower leg varicose vein. Patient says he was in the shower and the varicose veins of right distal leg popped open. Patient thought the bleeding will stop and waited for some time but did not stop. Patient says he passed out on the floor and did not know how long he passed out. Patient when he woke up called 911 and did not have enough strength to get up and open the door. First responders seem to have to force open into the house.EMS noted significant blood loss at the scene. Patient was diaphoretic. Patient was brought to the ER and control of bleeding was easily achieved with lidocaine with epinephrine. Pressure was applied with Coban and then changed to kenneth wrap as per ER. Hemorrhage seems to be stopped. But patient was hypotensive. Heart rates were okay. Initial hemoglobin is 10.9. Outpatient labs shows hemoglobin around 15. Patient says he was doing okay until this happened. No recent fevers. Denies cough. Has some exertional shortness of breath attributed to back pain. No recent nausea/ vomiting. Appetite is okay. No diarrhea. No blood in the stools. Was micturating okay. In the ER even after 3 L of fluid bolus his blood pressure was still low. ICU was contacted. Patient was started on Levophed drip. A-line was placed. Blood pressure improved with Levophed drip. White count came back 22.13. Repeat hemoglobin was 9.2. VBG came pH of 7.27. Sodium 131. Potassium 3.4. CO2 11. Creatinine 1.4. Lactate 8.1. Serum Osmolality 309. Glucose 214. Magnesium 2.6. Ionized calcium 1.08. Initial troponin 23. Repeat troponin 86. TSH is 9.3 and free T4 0.5. Ethyl alcohol 167.Two Amp of bicarb and calcium gluconate was given in the ER by critical care. Empiric antibiotics Dapto and Zosyn were started. Patient somewhat drowsy but answering appropriately and able to give history. Past medical history. As mentioned above Past surgical history. Left shoulder arthroscopy. Left foot surgery. Tonsillectomy and adenoidectomy. Right repair of biceps tendon rupture. Right shoulder arthroscopy. Vasectomy. Social history. . No smoking. Alcohol 4.2 standard drinks of alcohol per week as per [place]. Family history. Maternal grandmother had breast cancer. Paternal grandmother had stroke. Paternal grandfather had diabetes. Hepatitis from transfusion. Hypertension. Maternal grandfather had hypertension. CABG. Father had dyslipidemia. Hypertension. Obesity. Mother had dyslipidemia. Allergies Allergy/AdvReac Type Severity Reaction Status Date / Time No Known Allergies Allergy Verified 09/17/20 08:36 Home Medications Medication Instructions Recorded Confirmed Type lisinopril 40 mg tablet 40 mg PO DAILY 07/12/24 07/12/24 History meloxicam 7.5 mg tablet 7.5 - 15 mg PO DAILY PRN Pain 07/12/24 07/12/24 History oxycodone 10 mg tablet 10 mg PO Q6H PRN Severe Pain 07/12/24 07/12/24 History (Scale Score 7-10) pregabalin 200 mg capsule 200 mg PO BID 07/12/24 07/12/24 History sertraline 100 mg tablet 200 mg PO DAILY 07/12/24 07/12/24 History zolpidem 10 mg tablet 10 mg PO HS PRN Insomnia 07/12/24 07/12/24 History Past Med/Surg History Problem List (Updated 07/12/24 @ 07:51 by LARA Burks) Elevated troponin Lactic acidosis Metabolic acidosis GUIDO (acute kidney injury) Blood alcohol level of 120-199 mg/100 ml Shock Syncope and collapse (Acute) Hemorrhage of varicose veins of right lower extremity (Acute) Acute hemorrhage (Acute) Thoracic back pain Lumbar facet arthropathy Lumbago Lumbar spinal stenosis Spasm of back muscles (Acute) Social History Smoking Status: Unknown if ever smoked Preferred Language: Irish Communication Ability: Effective Feels Safe at Home: Yes Review of Systems Review of Systems: All systems reviewed & are unremarkable except as noted in HPI & below Physical Exam Physical Exam: General- Drowsy Head- atraumatic Eyes- PERRL. ENT- oropharynx clear Neck- supple, no JVD. Lungs- clear to auscultation no wheezing or crackles Heart- regular rate and rhythm; no murmur, no gallop. Abdomen- normal bowel sounds, soft, nontender, no distension Extremities- no pretibial edema, kenneth wrap seen distal right leg and no obvious ongoing bleeding seen Neuro- Drowsy but arousable.PERRL, no facial palsy; no dysarthria; moves extremities Results & Data Results & Data Vital Signs (Past 12 Hours) Vital Signs Temp Pulse Pulse Resp BP BP Pulse Ox 07/12/24 06:51 76 20 100 07/12/24 06:21 74 17 100 07/12/24 06:20 74 17 59/41 L 100 07/12/24 06:10 72 71/41 L 99 07/12/24 06:00 74 24 68/32 L 99 07/12/24 05:55 75 23 68/32 L 99 07/12/24 05:43 26 H 61/38 L 98 07/12/24 05:29 80 85/26 L 99 07/12/24 05:26 81 15 61/31 L 99 07/12/24 05:21 78 30 H 80/30 L 100 07/12/24 05:08 83 94/31 L 97 07/12/24 04:47 83 30 H 54/37 L 95 07/12/24 04:33 76 21 97 07/12/24 04:22 88 07/12/24 04:20 88 35 H 75/47 L 94 07/12/24 04:09 79 26 H 75/54 L 95 07/12/24 04:09 36.5 C 79 27 H 74/52 L 97 O2 Del Method 07/12/24 06:51 07/12/24 06:21 07/12/24 06:20 07/12/24 06:10 07/12/24 06:00 07/12/24 05:55 07/12/24 05:43 07/12/24 05:29 07/12/24 05:26 07/12/24 05:21 Room Air 07/12/24 05:08 07/12/24 04:47 07/12/24 04:33 Room Air 07/12/24 04:22 07/12/24 04:20 07/12/24 04:09 Room Air 07/12/24 04:09 Room Air Diagnostic Findings Laboratory Results WBC 22.13 K/ul (4.8-10.8) H 07/12/24 04:20 RBC 4.21 M/uL (4.70-6.10) L 07/12/24 04:20 Hgb 9.2 g/dl (14.0-18.0) L 07/12/24 06:10 POC Hgb 12.2 g/dl (14.0-18.0) L 07/12/24 04:26 Hct 29.0 % (42.0-52.0) L 07/12/24 06:10 POC Hct 36 % (42-52) L 07/12/24 04:26 MCV 85.0 fL (80.0-100.0) 07/12/24 04:20 MCH 25.9 pg (25.0-34.0) 07/12/24 04:20 MCHC 30.4 g/dL (32.0-36.0) L 07/12/24 04:20 RDW Std Deviation 48.4 fL (36.4-46.3) H 07/12/24 04:20 RDW Coeff of Ronal 15.7 % (11.5-14.5) H 07/12/24 04:20 Plt Count 336 K/uL (130-400) 07/12/24 04:20 MPV 11.0 fL (9.4-12.4) 07/12/24 04:20 Absolute Nucleated RBC 0.03 K/uL (0.00-0.12) 07/12/24 04:20 Nucleated RBC % (auto) 0.1 % 07/12/24 04:20 Neutrophils % (Manual) 51 % 07/12/24 04:20 Lymphocytes % (Manual) 36 % 07/12/24 04:20 Monocytes % (Manual) 3 % 07/12/24 04:20 Eosinophils % (Manual) 3 % 07/12/24 04:20 Metamyelocytes % (Man) 4 % 07/12/24 04:20 Myelocytes % (Man) 3 % 07/12/24 04:20 Neutrophils # (Manual) 11.29 K/uL (1.40-6.50) H 07/12/24 04:20 Total Absolute Neuts 11.29 K/uL (1.4-6.5) H 07/12/24 04:20 Lymphocytes # (Manual) 7.97 K/uL (1.2-3.4) H 07/12/24 04:20 Total Abs Lymphocytes 7.97 K/uL (1.2-3.4) H 07/12/24 04:20 Monocytes # (Manual) 0.66 K/uL (0.11-0.59) H 07/12/24 04:20 Eosinophils # (Manual) 0.66 K/uL (0-0.50) H 07/12/24 04:20 Metamyelocytes # (Man) 0.89 K/uL (0-0) H 07/12/24 04:20 Myelocytes # (Manual) 0.66 K/uL (0-0) H 07/12/24 04:20 VBG pH 7.27 (7.36-7.41) L 07/12/24 07:01 VBG pCO2 40 mmHg (38-50) 07/12/24 07:01 VBG pO2 28 mmHg 07/12/24 07:01 VBG HCO3 18 mmol/L 07/12/24 07:01 VBG O2 Saturation < 60.0 % 07/12/24 07:01 VBG Base Excess -8.0 mEq/L 07/12/24 07:01 POC Sodium 131 mmol/L (135-144) L 07/12/24 04:26 Sodium 131 mmol/L (136-145) L 07/12/24 05:02 POC Potassium 3.6 mmol/L (3.3-5.0) 07/12/24 04:26 Potassium 3.4 mmol/L (3.5-5.1) L 07/12/24 05:02 POC Chloride 99 mmol/L (101-112) L 07/12/24 04:26 Chloride 96 mmol/L (98-107) L 07/12/24 04:20 Carbon Dioxide 11 mmol/L (21-32) L 07/12/24 04:20 POC Total CO2 12 mmol/L (24-31) L 07/12/24 04:26 Anion Gap TNP 07/12/24 04:20 POC Anion Gap 25.0 mmol/L (16-25) 07/12/24 04:26 POC BUN 5 mg/dl (7-18) L 07/12/24 04:26 BUN 7 mg/dl (6-23) 07/12/24 04:20 Creatinine 1.41 mg/dl (0.6-1.4) H 07/12/24 04:20 POC Creatinine 1.7 mg/dl (0.6-1.3) H 07/12/24 04:26 Est Cr Clr Drug Dosing 104.8 ml/min 07/12/24 04:20 eGFR 61.85 07/12/24 04:20 BUN/Creatinine Ratio 5.0 (10-20) L 07/12/24 04:20 Glucose 214 mg/dl (70-99(Fasting)) H 07/12/24 04:20 POC Glucose (other) 209 mg/dl (70-99) H 07/12/24 04:26 Osmolality 309 mOsm/kg (280-300) H 07/12/24 06:10 Lactate 8.1 mmol/L (0.4-2.0) H* 07/12/24 06:10 Calcium 8.7 mg/dl (8.6-10.3) 07/12/24 04:20 POC Ioniz Calcium [place] 1.08 mmol/l (1.12-1.32) L 07/12/24 04:26 Magnesium 2.6 mg/dl (1.7-2.4) H 07/12/24 05:02 Total Bilirubin 0.3 mg/dl (0.2-1.0) 07/12/24 04:20 AST 47 U/L (13-39) H 07/12/24 05:02 ALT 45 U/L (7-52) 07/12/24 04:20 Alkaline Phosphatase 111 U/L (34-104) H 07/12/24 05:02 Troponin I High Sens 86.1 pg/ml (0-20) H* D 07/12/24 06:10 Total Protein 7.1 gm/dl (6.0-8.3) 07/12/24 04:20 Albumin 3.4 gm/dl (3.4-5.0) 07/12/24 05:02 Globulin TNP 07/12/24 04:20 Albumin/Globulin Ratio TNP 07/12/24 04:20 Procalcitonin 0.22 ng/ml (0-0.5) 07/12/24 06:10 TSH 9.314 uIu/ml (0.300-4.500) H 07/12/24 04:20 Free T4 0.58 ng/dl (0.61-1.60) L 07/12/24 04:20 Ethyl Alcohol mg/dL 167.9 mg/dl (<10.0) H 07/12/24 04:20 Blood Type O Positive 07/12/24 05:02 Blood Type Recheck O Positive 07/12/24 06:12 Antibody Screen NEGATIVE 07/12/24 05:02 Crossmatch See Detail 07/12/24 05:02 Impressions Chest X-Ray 07/12/24 04:33 EXAM: XR chest 1V portable CLINICAL HISTORY: SB, hemorrhage. TECHNIQUE: An X-ray image of the chest is obtained in AP projection. COMPARISON: No prior studies are available for comparison. FINDINGS: Pulmonary Parenchyma: Lungs are clear bilaterally. No evidence of consolidation, collapse, or focal opacities. No pulmonary nodules are identified. No evidence of pleural effusion or pleural thickening. Heart and Mediastinum: Enlarged heart size, widening of mediastinum noted. Bony Thorax: Bony thorax appears intact without fractures or deformities. IMPRESSION: 1. Enlarged heart size, and widening of mediastinum noted. 2. Clinical correlation and further evaluation are advised. Electronically signed by Robin Leon 07-12-2024 05:57 AM ECG Additional Comments: ECG. Normal sinus rhythm rate of 82. No acute ST changes seen. QTc 467 Code Status & VTE Plan VTE Prophylaxis Plan VTE Prophylaxis will be ordered: Yes
[2024-07-12] MEDS: FOMEPIZOLE IV STA (07:55)
[2024-07-12] MEDS: DEXTROSE 5% IV STA (07:55)
[2024-07-12] MEDS: STAT IV Infusion **Titration per Protocol STA (08:01)
[2024-07-12] MEDS: ICU Protocol for HYPERglycemia SCH (08:02)
[2024-07-12] MEDS: FOMEPIZOLE 1,500MG/1.5ML VIAL IV STA (08:02)
[2024-07-12] MEDS ORDERED: GLUCOSE 10 TAB/TUBE PO PRN ×2 (08:26→08:29)
[2024-07-12] MEDS ORDERED: CARBOHYDRATES FOR HYPOGLYCEMIA PO PRN ×2 (08:26→08:29)
[2024-07-12] MEDS ORDERED: GLUCOSE 40% GEL 15 GM TUBE PO PRN ×2 (08:26→08:29)
[2024-07-12] MEDS ORDERED: GLUCAGON FOR INJ 1 MG VIAL SQ PRN ×2 (08:26→08:29)
[2024-07-12] MEDS ORDERED: DEXTROSE 50% 50 ML SYRINGE IV PRN ×2 (08:26→08:29)
[2024-07-12] MEDS ORDERED: PHARMACY GLYCEMIC MGMT CONSULT PRN (08:29)
--- NOTE | 2024-07-12 08:36 | CT Scan Report ---
EXAM: CT angio abd pelvis wo/w con CLINICAL HISTORY: Hypotension. TECHNIQUE: CTA of the abdomen and pelvis was performed with 112 ml Opitray-320mg/ml IV contrast. Coronal and sagittal reconstructive images were also obtained. One of these 3D techniques was utilized: Maximum Intensity Pixel (MIP), 3D Reconstructed Images, Volume Rendered Images, Surface Shaded Rendering. Axial non-contrast sections of the abdomen and pelvis were also obtained. One of the following dose reduction techniques was utilized for this exam. Automated exposure control, adjustment of the mA and/or kV according to patient size, and use of iterative reconstruction. CTDI: 103mGy, DLP: 3169.98mGy*cm. COMPARISON: None. FINDINGS: Aorta: The abdominal aorta is normal in caliber. No evidence of aneurysm, dissection, or significant atherosclerotic changes. Aortic bifurcation is unremarkable. Renal Arteries: Renal arteries are normal in size and opacification. No evidence of stenosis or occlusion. Symmetric perfusion of both kidneys. Mesenteric Arteries: Superior mesenteric artery (SMA) and inferior mesenteric artery (LOLI) are normal in caliber and opacification. No evidence of stenosis or occlusion. Celiac Artery: Celiac artery is normal in caliber and opacification. No evidence of stenosis or occlusion. Iliac Arteries: Common, internal, and external iliac arteries are normal in caliber and opacification. No evidence of stenosis, aneurysm, or occlusion. Venous Structures: Inferior vena cava (IVC) and major venous structures are normal in caliber and opacification. No evidence of thrombus or obstruction. Liver: Enlarged size (LS=25cm) with diffuse hypodense texture, suggesting marked hepatic steatosis. Homogeneous enhancement post-contrast. A rounded enahncing left hepatic lobe segment IV b focal lesion, could be a flash filling hemangioma. Gallbladder and Biliary System: Normal appearance of the gallbladder and biliary ducts. No stones or dilatation. Pancreas: Normal size and contour. Homogeneous enhancement post-contrast. No masses or cystic lesions. Spleen: Normal size and appearance. Homogeneous enhancement post-contrast. Adrenal Glands: Normal size and morphology bilaterally. No adrenal masses. Kidneys and Ureters: Normal size, shape, and position of both kidneys. Homogeneous enhancement post-contrast. No renal stones, masses, or hydronephrosis. Ureters are unremarkable. Bladder: Collapsed. No intraluminal masses. Normal enhancement post-contrast. Pelvic Structures: Unremarkable pelvic organs. Bowel: Normal appearance of the visualized bowel loops. No evidence of obstruction, wall thickening, or abnormal dilatation. Lymph Nodes: No pathologically enlarged lymph nodes in the abdomen or pelvis. Peritoneum: No free fluid or free air in the abdomen. Bones: Lumbar spondylosis, L4 and small lucent rounded area, could be hemangiomas. Normal alignment and bone density. Soft Tissues: An elliptical shaped anterior abdominal wall collection measuring 10 cm along maximum length and 13 mm along maximum thickness, needs clinical correlation Divercation of the recti, with diastasis of the linea alba. IMPRESSION: 1. Normal CT angiography of the abdomen and pelvis. 2. No evidence of significant vascular abnormalities. 3. An elliptical shaped anterior abdominal wall fluid collection measuring 10 cm along maximum length and 13 mm along maximum thickness, needs clinical correlation. 4. Marked hepatic steatosis and hepatomegaly. A rounded enhancing left hepatic lobe segment IV b focal lesion, could be a flash filling hemangioma. Electronically signed by Robin Leon 07-12-2024 08:35 AM
--- NOTE | 2024-07-12 08:36 | CT Scan Report ---
EXAM: CT head/brain wo con CLINICAL HISTORY: Syncope. TECHNIQUE: Axial non-contrast CT scan of the brain was performed from the skull base to the high parietal region. One of the following dose reduction techniques were utilized for this exam: Automated exposure control, adjustment of the mA and/or kV according to patient size, use of iterative reconstruction. COMPARISON: None. FINDINGS: Brain Parenchyma: Normal attenuation of the cerebral hemispheres, cerebellum, and brainstem. No evidence of acute infarct, hemorrhage, or mass effect. No abnormal areas of hypo- or hyperattenuation. Mild age-appropriate brain Involutional changes. Ventricular System: Ventricles are normal in size and configuration. No evidence of hydrocephalus or ventricular enlargement. Subarachnoid Spaces: Normal sulci and cisterns. No evidence of subarachnoid hemorrhage or extra-axial fluid collections. Cerebellum and Brainstem: Normal size and signal. No masses, lesions, or areas of abnormal signal. Prominent retrocerebellar CSF density seen. Orbits: Normal appearance of the globes, optic nerves, and extraocular muscles. No evidence of orbital masses or abnormal signal. Sinuses: Clear paranasal sinuses. No evidence of sinusitis or mucosal thickening. Mastoid Air Cells: Clear mastoid air cells. No evidence of mastoiditis. Skull: Normal skull morphology. IMPRESSION: 1. No acute intracranial abnormalities. 2. No intra or extra axial hematoma. 3. Early ischemic stroke can be not visualized on CT, if clinically suspected MRI with diffusion is advised. Electronically signed by Robin Leon 07-12-2024 08:35 AM
--- NOTE | 2024-07-12 08:40 | CT Scan Report ---
EXAM: CT angio chest w con CLINICAL HISTORY: Hypotension. TECHNIQUE: Contiguous 3.[address] angiographic images of the chest were acquired with the administration of intravenous contrast. Coronal and sagittal reconstructions were obtained. 112 ml opti 320 was administered for post-contrast images. One of these 3D techniques was utilized: Maximum Intensity Pixel (MIP), 3D Reconstructed Images, Volume Rendered Images, Surface Shaded Rendering. One of the following dose reduction techniques were utilized for this exam: Automated exposure control, adjustment of the mA and/or kV according to patient size, and use of iterative reconstruction. COMPARISON: None. FINDINGS: Aorta: The thoracic aorta is normal in caliber. No evidence of aneurysm, dissection, or significant atherosclerotic changes. Aortic arch and descending thoracic aorta are unremarkable. Pulmonary Arteries: Suboptimal opacification of the pulmonary arteries was noted. Pulmonary arteries are normal in size and opacification. No evidence of pulmonary embolism. No stenosis or filling defects. Superior Vena Cava (SVC) and Inferior Vena Cava (IVC): Normal opacification and caliber. No evidence of thrombus or obstruction. Coronary Arteries: Coronary arteries are well-opacified. No significant stenosis or atherosclerotic changes. Mediastinum: No mediastinal mass or lymphadenopathy. Normal appearance of the thymus. Heart: Normal size and morphology of the heart. No pericardial effusion. Lungs: Bilateral posterior subpleural fine reticulations are likely gravitation. Lungs are clear with no evidence of consolidation, nodules, or masses. No pleural effusion or thickening. Bones: No fractures or lytic/sclerotic lesions of the visualized bony structures. Normal alignment and bone density. Soft Tissues: Normal appearance of the visualized soft tissues. No abnormal masses or fluid collections. IMPRESSION: 1. Unremarkable CT angiography of the chest. 2. No evidence of significant vascular abnormalities. Electronically signed by Robin Leon 07-12-2024 08:39 AM
[2024-07-12 08:46] LABS: Acetaminophen < 3 ug/ml (10-30); Salicylate < 3.0 mg/dl (3.0-30)
[2024-07-12 09:03] LABS: BUN Creatinine Ratio 5.6 (10-20); Calcium 7.9 mg/dl (8.6-10.3); Creatinine Clr Calc Pharmacy 102.6 ml/min; Potassium 4.2 mmol/L (3.5-5.1)
[2024-07-12] MEDS: INSULIN ASPART PER UNIT CHARGE SC SCH (09:14)
[2024-07-12] MEDS: LIDOCAINE 2% JELLY 5 ML TUBE EXT ONE (09:38)
[2024-07-12] MEDS ORDERED: Ativan PO Alcohol Withdrawal--Active Protocol PO PRN (09:51)
[2024-07-12] MEDS ORDERED: LORazepam 1 MG TAB PO PRN ×2 (09:51)
[2024-07-12] MEDS ORDERED: LORazepam 2 MG/1 ML VIAL IV PRN (09:51)
[2024-07-12] MEDS: THIAMINE HCL 500 MG in SODIUM CHLORIDE 0.9% 50 ML IV SCH (10:08)
[2024-07-12] MEDS: DAPTOmycin 850 MG in SYRINGE 0 ML IV ONE (10:08)
[2024-07-12] MEDS: PIPERACILLIN/TAZOBACTAM 4.5 GM/100 ML BAG IV ONE (10:42)
--- OUTSIDE RECORDS SUMMARY | 2024-07-12 11:13 | External Medical Summary | Summary of Care ---
Author Name Unknown Organization [facility] Address [address] [place] [address] Phone [phone] Care Team Providers Care Digital Engineer Name Role Phone Deshaun Pop MD Primary Care Provider + Encounter Details Date Type Department Care Team (Late st Contact Info) Description 06/22/2024 Orders Only PATIENT PORTAL DO NOT DELETE THIS DEPT USED BY MARYA HOLBROOKJC [phone] Allergies No known active allergiesdocumented as of this encounter (statuses as of 06/22/2024) Medications lansoprazole DR (PREVACID) 15 MG CPDRIndications: Gastroesophageal reflux disease, esophagitis presence not specified Take 1 Cap by mouth daily. 30 minutes before the first meal of the day 30 Cap 11 8 Active Pregabalin 50 MG Oral Capsule (Lyrica) TAKE 1 CAPSULE DAILY IN ADDITION TO 200MG TWO TIMESA DAY 90 Capsule 1 2 Active Additional Information Patient not taking.Reported on 06/20/2024 LORazepam 0.5 MG Oral Tablet (Ativan) Take 1 Tablet by mouth 3 times a day as needed for Anxiety. Don't take with oxycodone within 6 h. 15 Tablet 05/31/2022 10:35 AM EST 3 Active Fluticasone Propionate 50 MCG/ACT Nasal Suspension (Flonase)Indicat ions:Chronic sinusitis SQUIRT 2 SPRAYS IN EACH NOSTRIL ONCE DAILY 16 g 11 03/07/2023 5:16 PM EST 3 Active Zolpidem Tartrate 10 MG Oral Tablet (Ambien) Take 1 Tablet by mouth at bedtime as needed for Sleep. 30 Tablet 2 08/29/2022 12:17 PM EDT 3 Active Additional Information Patient not taking.Reported on 06/20/2024 Ozempic (1 MG/DOSE) 4 MG/3ML Subcutaneous Solution Pen-injector (Semaglutide (1 MG/DOSE))Indicat ions:Class 3 severe obesity due to excess calories with serious comorbidity in adult, unspecified BMI (HCC) Inject 1 mg under the skin once a week. 3 mL 1 3 Active Pregabalin 200 MG Oral Capsule (Lyrica)Indicati ons:Lumbar degenerative disc disease TAKE 1 CAPSULE TWICE DAILY 180 Capsule 1 4 Active Additional Information Patient not taking.Reported on 06/20/2024 oxyCODONE HCl 10 MG Oral Tablet (Roxicodone)Janey cations:Lumbar degenerative disc disease,Spinal stenosis of lumbar region with neurogenic claudication,MED ICATION USE AGREEMENT Take 1 Tablet by mouth every 6 hours as needed for Pain, Severe. 120 Tablet 5 Active Lisinopril 40 MG Oral TabletIndication s:HTN, goal below 140/90 Take 1 Tablet by mouth in the morning. 90 Tablet 3 5 Active Meloxicam 7.5 MG Oral Tablet (Mobic)Indicatio ns:Spinal stenosis of lumbar region with neurogenic claudication Take 1-2 daily as needed for pain. 50 Tablet 5 5 Active Sertraline HCl 100 MG Oral Tablet (Zoloft)Indicati ons:AKOSUA (generalized anxiety disorder) Take 2 Tablets by mouth in the morning. 180 Tablet 3 5 Active documented as of this encounter (statuses as of 06/22/2024) Active Problems Problem Noted Date Diagnosed Date Morbid (severe) obesity due to excess calories 0 06/20/2024 VANE on CPAP 06/20/2024 Prediabetes 06/20/2024 Class 3 severe obesity due t o excess calories with serious comorbidity in adult 06/20/2024 B12 deficiency 03/09/2023 AKOSUA (generalized anxiety disorder) 06/12/2019 Nontraumatic incomplete tear of left rotator cuf f 03/17/2019 Inverted follicular keratosis 10/19/2018 Overview (10/19/2018): Back of thigh, shave biopsy 10/17. Well adult exam 11/29/2017 Overview (05/29/2024): Consider VANE testing? Need discuss. Ambien.\ ?2024 Lumbar MRI [facility]-(scanned in ortho consult from 05/25). 03/19 start OTC [id number]. Possible c diff treated on own w/Vanco PO (2019) HTN, goal below 140/90 06/13/2016 Lumbar spinal stenosis 08/20/2014 MEDICATION USE AGREEMENT 04/08/2014 Overview (06/12/2019): Patient signed 04/08/2014 [facility] Lumbar degenerative disc disease 03/18/2014 Insomnia 03/08/2012 Overview (01/30/2017): ICD-10 update of inactive term documented as of this encounter (statuses as of 06/22/2024) Resolved Problems Problem Noted Date Diagnosed Date Resolved Date Inflammation of sacroiliac joint 11/29/2017 03/17/2019 Body mass index (BMI) of 40. 0 to 44.9 in adult 07/11/2017 06/12/2019 Overview: Per Obesity protocol #1 Spinal stenosis of lumbar region 06/15/2017 09/21/2017 Left-sided low back pain without sciatica 06/18/2015 09/21/2017 Foot pain 12/13/2013 09/21/2017 Backache 03/08/2012 09/21/2017 documented as of this encounter (statuses as of 06/22/2024) Immunizations Name Administration Dates Next Due COVID-19 mRNA, LNP-s, No Pre serve, 2-Dose Series (Producteev) 02/03/2021,05/08/2020,04/17/2020 Seasonal Influenza Vac., MDV , IM, 0.5 mL (Fluzone) 02/18/2016,02/14/2015,03/05/2012 Seasonal Influenza, PF, 6 M & above, IM , (FluLaval or Fluzone) 02/18/2022 Seasonal Influenza, Quadriva lent, No Preserve, IM 02/23/2021,02/06/2020,02/04/2020, 019,02/08/2018,02/20/2017 TDAP (age 10 and older)(Boostrix) 2022 documented as of this encounter Social History Tobacco Use Types Packs/Day Years Used Date Smoking Tobacco: Never Smokeless Tobacco: Never Alcohol Use Standard Drinks/Week Comments Yes 4.2 (1 standard drink = 0.6 oz p ure alcohol) 6-8 weeks. 6-8 /big weekend. 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 Not on file Not on file Not on file documented as of this encounter Plan of Treatment Upcoming Encounters Date Type Department Care Team (Late st Contact Info) Description 07/24/2025 8:20 AM EDT Office Visit Family Practice [facility] [address] [id number] Deshaun Pop MD [address] [address] Health Maintenance Due Date Last Done Comments Albumin/Creatinine Ratio 1995 Hepatitis C Screening 1995 Hepatitis B Vaccine (1 of 3 - 19+ 3-dose series) 01/22/1996 Depression Screening 11/29/2018 11/29/2017 Cologuard 2022 Colonoscopy 2022 Colorectal Cancer Screening 2022 Fecal Occult Blood Test 2022 Sigmoidoscopy 2022 COVID-19 Vaccine ( season) 2023 02/03/2021, 05/08/2020, 04/17/2020 Influenza Vaccine (FLU shot) (#1) 2023 02/18/2022, 02/23/2021, 02/06/2020, Additional history exists HbA1c 06/14/2024 06/14/2023, 06/01, 08/25/2020, Additional history exists GFR 08/08/2024 08/09/2023, 06/01, 06/14/2023, Additional history exists Lipid Panel 06/14/2028 06/14/2023, 10/17/2017 DTap/Tdap Vaccines (3 - Td or Tdap) 01/22/2032 2022, 11/22/2010, 10/31/2000 HPV (Gardasil) Vaccine Aged Out No lo nger eligible based on patient's age to complete this topic MENINGOCOCCAL (MENACTRA/MENVEO) Aged Out No longer eligible based on patient's age to complete this topic Meningitis B Vaccine (Bexsero/Trumemba) Aged Out No longer eligible based on patient's age to complete this topic Pneumococcal Vaccine: Pediatrics (0 to 5 Years) and At-Risk Patients (6 to 18 Years and 19+ Years) Aged Out No longer eligib le based on patient's age to complete this topic documented as of this encounter Medical Devices Implanted Type Area Aircraft Restorer Device Identifier Shelf Expiration Date Model / Serial / Lot System Implant Speedbridge - [id number] Implanted:Qty: 1 on 04/01/2019 by Belgica Contreras DO at OR [facility] Left: Shoulder [employer] 10/28/2020 AR-2600SBS -4 / / [id number] Biocomposite Swivelock Suture [place] 5.5x22mm Implanted:Qty: 1 on 04/01/2019 by Belgica Contreras DO at OR [facility] Left: Shoulder 03/30/2020 AR-2323BCT -2 / / [id number] Prox Tenodesis Implant Syst - [id number] Implanted:Qty: 1 on 04/01/2019 by Belgica Contreras DO at OR [facility] Left: Shoulder [employer] 11/29/2023 AR-2290 / / [id number] documented as of this encounter Advance Directives * Full Code (Latest Code Status on File) Date Activated Date Inactivated Comments 03/08/2021 8:25 AM 03/08/2021 1:08 PM This order r eflects the patients wishes and were consensually agreed upon. * Full Code Date Activated Date Inactivated Comments 03/08/2021 6:55 AM 03/08/2021 8:25 AM This order r eflects the patients wishes and were consensually agreed upon. Care Teams Digital Engineer Relationship Specialty Start Date End Date Deshaun Pop MD [address] [place] [address] PCP - General Family Medicine 07/25/18 documented as of this encounter
--- OUTSIDE RECORDS SUMMARY | 2024-07-12 11:13 | External Medical Summary | Summary of Care ---
Author Name Unknown Organization [facility] Address [address] [place] [address] Phone [phone] Care Team Providers Care Community Recreation Programmer Name Role Phone Deshaun Pop MD Primary Care Provider + Encounter Details Date Type Department Care Team (Late st Contact Info) Description 06/21/2024 Result Scan Unspecified Department Deshaun Pop MD [address] [facility] [place] [address] <No scans attached> Allergies No known active allergiesdocumented as of this encounter (statuses as of 06/25/2024) Medications lansoprazole DR (PREVACID) 15 MG CPDRIndications: [...] as of this encounter (statuses as of 06/25/2024) Active Problems Problem Noted Date Diagnosed Date [...] testing? Need discuss. Ambien.\ ?2024 Lumbar MRI [facility]-(scanned in ortho consult from 05/25). 03/19 start OTC [id number]. Possible c diff treated on own w/Vanco PO (2019) HTN, goal below 140/90 06/13/2016 Lumbar spinal stenosis 08/20/2014 MEDICATION USE AGREEMENT 04/08/2014 Overview (06/12/2019): Patient signed 04/08/2014 [facility] Lumbar degenerative disc disease 03/18/2014 Insomnia 03/08/2012 Overview (01/30/2017): ICD-10 update of inactive term documented as of this encounter (statuses as of 06/25/2024) Resolved Problems Problem Noted Date Diagnosed Date Resolved Date Inflammation of sacroiliac joint 11/29/2017 03/17/2019 Body mass index (BMI) of 40. 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 Not on file Not on file Not on file documented as of this encounter Plan of Treatment Upcoming Encounters Date Type Department Care Team (Late st Contact Info) Description 07/24/2025 8:20 AM EDT Office Visit Family Practice [facility] [address] [address] Deshaun Pop MD [address] [address] Health Maintenance Due Date Last Done Comments [...] this encounter Medical Devices Implanted Type Area Sole Trimmer Device Identifier Shelf Expiration Date Model / Serial / Lot System Implant Speedbridge - [id number] Implanted:Qty: 1 on 04/01/2019 by Belgica Contreras DO at OR [facility] Left: Shoulder [employer] 10/28/2020 AR-2600SBS -4 / / [id number] Biocomposite Swivelock Suture [place] 5.5x22mm Implanted:Qty: 1 on 04/01/2019 by Belgica Contreras DO at OR [facility] Left: Shoulder 03/30/2020 AR-2323BCT -2 / / [id number] Prox Tenodesis Implant Syst - [id number] Implanted:Qty: 1 on 04/01/2019 by Belgica Contreras DO at OR [facility] Left: Shoulder [employer] 11/29/2023 AR-2290 / / [id number] documented as of this encounter Procedures Procedure Name Priority Date/Time Associated Diagnosis Comments OUTSIDE LAB RESULTS 06/21/2024 documented in this encounter Results * OUTSIDE LAB RESULTS (06/21/2024) 06/21/2024 Deshaun Pop MD LABORATORY Final Re sult documented in this encounter Advance Directives * Full Code (Latest Code Status on File) Date Activated Date Inactivated Comments 03/08/2021 8:25 AM 03/08/2021 1:08 PM This order r eflects the patients wishes and were consensually agreed upon. * Full Code Date Activated Date Inactivated Comments 03/08/2021 6:55 AM 03/08/2021 8:25 AM This order r eflects the patients wishes and were consensually agreed upon. Care Teams Community Recreation Programmer Relationship Specialty Start Date End Date Deshaun Pop MD [address] [facility] [place] [address] PCP - General Family Medicine 07/25/18 documented as of this encounter
--- OUTSIDE RECORDS SUMMARY | 2024-07-12 11:13 | External Medical Summary | Summary of Care ---
Author Name Unknown Organization [facility] Address [address] [place] [address] Phone [phone] Care Team Providers Care Ice Cream Chef Name Role Phone Deshaun Pop MD Primary Care Provider + Reason for Visit * Reason Onset Date Comments Medication Refill 07/08/2024 Encounter Details Date Type Department Care Team (Late st Contact Info) Description 07/08/2024 Refill Family Practice [facility] [address] [facility] [place] [address] Deshaun Pop MD [address] [facility] [place] [address] Lumbar degenerative disc disease; Spinal stenosis of lumbar region with neurogenic claudication; MEDICATION USE AGREEMENT Allergies No known active allergiesdocumented as of this encounter (statuses as of 07/10/2024) Medications lansoprazole DR (PREVACID) 15 MG CPDRIndications: Gastroesophageal reflux disease, esophagitis presence not specified Take 1 Cap by mouth daily. 30 minutes before the first meal of the day 30 Cap 11 11/30/19 18 Active Pregabalin 50 MG Oral Capsule (Lyrica) TAKE 1 CAPSULE DAILY IN ADDITION TO 200MG TWO TIMESA DAY 90 Capsule 1 12/10/19 22 Active Additional Information Patient not taking.Reported on 06/20/2024 LORazepam 0.5 MG Oral Tablet (Ativan) Take 1 Tablet by mouth 3 times a day as needed for Anxiety. Don't take with oxycodone within 6 h. 15 Tablet 05/31/2022 10:35 AM EST 05/27/19 23 Active Fluticasone Propionate 50 MCG/ACT Nasal Suspension (Flonase)Indicat ions:Chronic sinusitis SQUIRT 2 SPRAYS IN EACH NOSTRIL ONCE DAILY 16 g 11 03/07/2023 5:16 PM EST 07/15/19 23 Active Zolpidem Tartrate 10 MG Oral Tablet (Ambien) Take 1 Tablet by mouth at bedtime as needed for Sleep. 30 Tablet 2 08/29/2022 12:17 PM EDT 08/19/19 23 Active Additional Information Patient not taking.Reported on 06/20/2024 Ozempic (1 MG/DOSE) 4 MG/3ML Subcutaneous Solution Pen-injector (Semaglutide (1 MG/DOSE))Indicat ions:Class 3 severe obesity due to excess calories with serious comorbidity in adult, unspecified BMI (HCC) Inject 1 mg under the skin once a week. 3 mL 1 04/27/20 23 Active Pregabalin 200 MG Oral Capsule (Lyrica)Indicati ons:Lumbar degenerative disc disease TAKE 1 CAPSULE TWICE DAILY 180 Capsule 1 05/02/19 24 Active Additional Information Patient not taking.Reported on 06/20/2024 Lisinopril 40 MG Oral TabletIndication s:HTN, goal below 140/90 Take 1 Tablet by mouth in the morning. 90 Tablet 3 06/20/19 25 Active Meloxicam 7.5 MG Oral Tablet (Mobic)Indicatio ns:Spinal stenosis of lumbar region with neurogenic claudication Take 1-2 daily as needed for pain. 50 Tablet 5 06/20/19 25 Active Sertraline HCl 100 MG Oral Tablet (Zoloft)Indicati ons:AKOSUA (generalized anxiety disorder) Take 2 Tablets by mouth in the morning. 180 Tablet 3 06/20/19 25 Active oxyCODONE HCl 10 MG Oral Tablet (Roxicodone)Janey cations:Lumbar degenerative disc disease,Spinal stenosis of lumbar region with neurogenic claudication,MED ICATION USE AGREEMENT Take 1 Tablet by mouth every 6 hours as needed for Pain, Severe. 120 Tablet 07/11/19 25 Active oxyCODONE HCl 10 MG Oral Tablet (Roxicodone)Janey cations:Lumbar degenerative disc disease,Spinal stenosis of lumbar region with neurogenic claudication,MED ICATION USE AGREEMENT Take 1 Tablet by mouth every 6 hours as needed for Pain, Severe. 120 Tablet 05/21/19 25 025 Discontin ued(Refil l) documented as of this encounter (statuses as of 07/10/2024) Active Problems Problem Noted Date Diagnosed Date [...] testing? Need discuss. Ambien.\ ?2024 Lumbar MRI [facility]-(scanned in ortho consult from 05/25). 03/19 start OTC [id number]. Possible c diff treated on own w/Vanco PO (2019) HTN, goal below 140/90 06/13/2016 Lumbar spinal stenosis 08/20/2014 MEDICATION USE AGREEMENT 04/08/2014 Overview (06/12/2019): Patient signed 04/08/2014 [facility] Lumbar degenerative disc disease 03/18/2014 Insomnia 03/08/2012 Overview (01/30/2017): ICD-10 update of inactive term documented as of this encounter (statuses as of 07/10/2024) Resolved Problems Problem Noted Date Diagnosed Date Resolved Date Inflammation of sacroiliac joint 11/29/2017 03/17/2019 Body mass index (BMI) of 40. 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 Not on file Not on file Not on file documented as of this encounter Miscellaneous Notes * Telephone Encounter - Fabiana Nixon MD - 07/10/2024 2:34 PM EDT Signed Prescriptions: Disp Refills oxyCODONE HCl 10 MG Oral Tablet (Roxicodon*120 Ta*0 Sig: Take 1 Tablet by mouth every 6 hours as needed for Pain, Severe.Authorizing Provider: FABIANA NIXON K * Telephone Encounter - Fabiana Nixon MD - 07/10/2024 2:33 PM EDT I have reviewed the patient's controlled substance dispensing history in the Prescription Drug Monitoring Program in compliance with the [place] regulations before prescribing a controlled substance. * [facility] 07/09/2024 2:59 PM EDT Pending Prescriptions: Disp Refills oxyCODONE HCl 10 MG Oral Tablet (Roxicodon*120 Ta*0 Sig: Take 1 Tablet by mouth every 6 hours as needed for Pain, Severe. * [facility] - 07/09/2024 2:58 PM EDT I have reviewed the patients controlled substance dispensing history in the Prescription Drug Monitoring Program in compliance with the [place] regulations before prescribing a controlled substance. PDMP checked on 07/09/2024. Pending Prescriptions: Disp Refills oxyCODONE HCl 10 MG Oral Tablet (Roxicodo*120 Ta*0 Sig: Take 1 Tablet by mouth every 6 hours as needed for Pain, Severe. Last Visit: 06/20/2024 (in office), 04/14/2023 (telemedicine) Next Visit: Visit date not found Date medication was last filled: 05/22/24 Date medication is due for refill: 06/20/24 Pharmacy: [id number] [facility] Is this request for a controlled substance? Yes and Urine Drug Screen Not completed Toxicology results: Results for orders placed or performed in visit on 01/06/22 PAIN MANAGEMENT DRUG PANEL, URINE W/ INTERPRETATION Result Value Pain Management Interpretation Based on the medication information provided: The positive oxycodone screening result is CONSISTENT with oxycodone use. Confirmatory testing is available upon request. Amphetamines Screen, U Negative Benzodiazepines Screen, U Negative Cannabinoids Screen, U Negative Cocaine Metabolite Screen, U Negative Fentanyl Screen, U Negative Hydrocodone Screen, U Negative Methadone Metabolite Screen, U Negative Morphine/Codeine Screen, U Negative Oxycodone Screen, U Positive (A) Specimen Validity Interpretation Normal Creatinine, U 65 Narrative Cutoff Concentrations: Drug Level Amphetamines 500 ng/mL Benzodiazepines 100 ng/mL Cannabinoids 50 ng/mL Cocaine Metabolite 150 ng/mL Fentanyl 1 ng/mL Hydrocodone / Hydromorphone 300 ng/mL Methadone Metabolite 100 ng/mL Morphine / Codeine 300 ng/mL Oxycodone / Oxymorphone 100 ng/mL Screening results are presumptive and can only be used for medical purposes. Confirmatory testing is available upon request. Results for orders placed or performed in visit on 06/16/17 TOX SCREEN, URINE, W/ CONFIRMATION Result Value Amphetamine Screen, U NEGATIVE Barbiturates Screen, U NEGATIVE Benzodiazepines Screen, U NEGATIVE Cannabinoids Screen, U NEGATIVE Cocaine Metabolite Screen, U NEGATIVE Morphine/Codeine Screen, U NEGATIVE Methadone Metabolite Screen, U NEGATIVE Oxycodone Screen, U POSITIVE (A) TOX COMMENT THE ABOVE SCREENING RESULTS ARE PRESUMPTIVE AND CAN ONLY BE USED FOR MEDICAL PURPOSES. POSITIVE RESULTS REFLEX TO CONFIRMATORY TESTING. Cutoff Concentration Please approve if appropriate. Thank You Nelly Ivey, MelaniaD Clinical Pharmacist [facility] ([facility]) [phone] / [phone] 07/09/2024, 2:59 PM documented in this encounter Plan of Treatment Upcoming Encounters Date Type Department Care Team (Late st Contact Info) Description 07/24/2025 8:20 AM EDT Office Visit [facility] [address] [facility] [place] [address] Deshaun Pop MD [address] [place] [address] Health Maintenance Due Date Last Done Comments [...] this encounter Medical Devices Implanted Type Area Nurse Gynecology Device Identifier Shelf Expiration Date Model / Serial / Lot System Implant Speedbridge - [id number] Implanted:Qty: 1 on 04/01/2019 by Belgica Contreras DO at OR [facility] Left: Shoulder [employer] 10/28/2020 AR-2600SBS -4 / / [id number] Biocomposite Swivelock Suture [place] 5.5x22mm Implanted:Qty: 1 on 04/01/2019 by Belgica Contreras DO at OR [facility] Left: Shoulder 03/30/2020 AR-2323BCT -2 / / [id number] Prox Tenodesis Implant Syst - [id number] Implanted:Qty: 1 on 04/01/2019 by Belgica Contreras DO at OR [facility] Left: Shoulder [employer] 11/29/2023 AR-2290 / / [id number] documented as of this encounter Visit Diagnoses Diagnosis Lumbar degenerative disc disease Degeneration of lumbar or lumbosacral intervertebral disc Spinal stenosis of lumbar region with neurogenic claudication Spinal stenosis, lumbar region, with neurogenic claudication MEDICATION USE AGREEMENT documented in this encounter Advance Directives * [...] and were consensually agreed upon. Care Teams Ice Cream Chef Relationship Specialty Start Date End Date Deshaun Pop MD [address] [address] PCP - General Family Medicine 07/25/18 documented as of this encounter
--- OUTSIDE RECORDS SUMMARY | 2024-07-12 11:13 | External Medical Summary | Summary of Care ---
Author Name Unknown Organization [facility] Address [address] [place] [address] Phone [phone] Care Team Providers Care Distilling Department Supervisor Name Role Phone Deshaun Pop MD Primary Care Provider + Reason for Visit * Reason Comments Physical-Exam Yearly physical Encounter Details Date Type Department Care Team (Late st Contact Info) Description 06/20/2024 11:40 AM EST Office Visit Family [facility] [address] [place] [id number] Deshaun Pop MD [address] [place] [address] Spinal stenosis of lumbar region with neurogenic claudication*; HTN, goal below 140/90; AKOSUA (generalized anxiety disorder); Class 3 severe obesity due to excess calories with serious comorbidity in adult, unspecified BMI (HCC); Screen for colon cancer; Low libido; Prediabetes; VANE on CPAP Allergies No known active allergiesdocumented as of this encounter (statuses as of 06/20/2024) Medications lansoprazole DR (PREVACID) 15 MG CPDRIndications: [...] for Pain, Severe. 120 Tablet 05/21/19 25 Active Lisinopril 40 MG Oral TabletIndication s:HTN, [...] morning. 180 Tablet 3 06/20/19 25 Active fexofenadine (CANDE) 180 MG TabletIndication s:Allergic rhinitis, unspecified allergic rhinitis type Take 1 Tab by mouth daily as needed for Allergies. 30 Tab 11 04/29/20 15 025 Discontin ued(Medic ation List Clean Up) Meloxicam 7.5 MG Tablet Take 1-2 daily as needed for pain. 50 Tab 5 12/16/19 20 025 Discontin ued(Refil l) Cephalexin 500 MG Oral Capsule (Keflex) Take 1 Capsule by mouth 3 times a day. 9 Capsule 03/08/20 21 025 Discontin ued(Medic ation List Clean Up) Amoxicillin-Pot Clavulanate 875-125 MG Oral Tablet Take by mouth 1 Tablet in the morning AND 1 Tablet before bedtime. 20 Tablet 10/12/19 22 025 Discontin ued(Medic ation List Clean Up) methylPREDNISolo ne 4 MG Oral Tablet Therapy Pack (Medrol Dosepack) follow package directions 21 Tablet 10/12/19 22 025 Discontin ued(Medic ation List Clean Up) Montelukast Sodium 10 MG Oral Tablet (Singulair) Take by mouth 1 Tablet in the morning. 90 Tablet 3 12/10/19 22 025 Discontin ued(Medic ation List Clean Up) Diclofenac Sodium 1 % External Gel (Voltaren) Apply topically to affected area 3 times a day as needed for Pain. 100 g 2 05/25/19 23 025 Discontin ued(Medic ation List Clean Up) Lisinopril 40 MG Oral TabletIndication s:HTN, goal below 140/90 Take 1 Tablet by mouth in the morning. 90 Tablet 3 05/02/19 24 025 Discontin ued(Refil l) Sertraline HCl 100 MG Oral Tablet (Zoloft)Indicati ons:AKOSUA (generalized anxiety disorder) Take 1.5 Tablets by mouth in the morning. 135 Tablet 3 05/02/19 24 025 Discontin ued(Refil l) oxyCODONE-Acetam inophen 10-325 MG Oral TabletIndication s:Lumbar degenerative disc disease,MEDICATI ON USE AGREEMENT,Spinal stenosis of lumbar region, unspecified whether neurogenic claudication present Take 1 Tablet by mouth every 6 hours as needed for Pain, Severe. 60 Tablet 01/04/20 24 025 Discontin ued(Medic ation List Clean Up) documented as of this encounter (statuses as of 06/20/2024) Active Problems Problem Noted Date Diagnosed Date [...] Overview (05/29/2024): Consider VANE testing? Need discuss. Ambien.\\ ?2024 Lumbar MRI [facility]-(scanned in ortho consult from 05/25). 03/19 start OTC [id number]. Possible c diff treated on own w/Vanco PO (2019) HTN, goal below 140/90 06/13/2016 Lumbar spinal stenosis 08/20/2014 MEDICATION USE AGREEMENT 04/08/2014 Overview (06/12/2019): Patient signed 04/08/2014 [facility] Lumbar degenerative disc disease 03/18/2014 Insomnia 03/08/2012 Overview (01/30/2017): ICD-10 update of inactive term documented as of this encounter (statuses as of 06/20/2024) Resolved Problems Problem Noted Date Diagnosed Date Resolved Date Inflammation of sacroiliac joint 11/29/2017 03/17/2019 Body mass index (BMI) of 40. 0 to 44.9 in adult 07/11/2017 06/12/2019 Overview: Per Obesity protocol #1 Spinal stenosis of lumbar region 06/15/2017 09/21/2017 Left-sided low back pain without sciatica 06/18/2015 09/21/2017 Foot pain 12/13/2013 09/21/2017 Backache 03/08/2012 09/21/2017 documented as of this encounter (statuses as of 06/20/2024) Immunizations Name Administration Dates Next Due COVID-19 [...] Date Smoking Tobacco: Never Smokeless Tobacco: Never Tobacco Cessation:Counseling Given: Not Answered Alcohol Use Standard Drinks/Week Comments Yes 4.2 (1 standard drink = 0.6 oz p ure alcohol) 6-8 weeks. 6-8 / weekend. 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 Not on file Not on file Not on file documented as of this encounter Last Filed Vital Signs Vital Sign Reading Time Taken Comments Blood Pressure 156/84 06/20/2024 1:56 PM EST Pulse 100 06/20/2024 11:50 AM EST Temperature 37.1 C (98.7 F) 06/20/2024 11:[address] Respiratory Rate 20 06/20/2024 11:50 AM EST Oxygen Saturation 98% 06/20/2024 11:50 AM EST Inhaled Oxygen Concentration - - Weight - - Height - - Body Mass Index - - documented in this encounter Progress Notes * Deshaun Pop MD - 06/20/2024 1:56 PM EST Images from the original note were not included. Subjective Desean Posey DO is a 49 year old male presenting for Physical-Exam (Yearly physical) History of Present Illness The patient, presents with severe back pain that started after a fall at work in May--fell backwards when stool rolled out from under him. The patient describes the pain as different and more intense than previous back pain episodes. The pain radiates down to the L knee, down front of leg, which is a new symptom for the patient. The patient has been managing the pain with oxycodone, but has had to increase the dosage on some days due to the severity of the pain. No numbness , weakness or incontinence. He saw [facility] Ortho who arrange MRI lumbar spine--reviewed-. Saw [facility] Pain mgmt who is scheduling COURTNEY. Pt with prev existing severe stenosis, he is really trying to avoid back surgery. In addition to the back pain, the patient has been dealing with high blood pressure since the fall.The patient is currently on lisinopril for hypertension management. The patient also reports nocturia, waking up two to three times a night to urinate. The patient attributes this to drinking a lot of water before bed. The patient also mentions a previous avulsion fracture of the left knee that occurred a couple of months ago. The patient reports that the knee has since healed. patient has experienced improvement in pain control and level of functioning well on oxycodone. The narcotic will be used in combination with tolerated non pharmacologic therapy and non opiate pharacologic therapy and I have reviewed her medical record documentation for urine drug screening testing for listed and illicit drugs with the potential for abuse consistent with prescribed controlled substances. Patient has tried and failed non-drug pain management modalities and non-opioid drugs, acetaminophen, nsaids, etc. It will be used in combination with tolerated non drug therapies and non-opioid meds. Patient was assessed for potential risk of misuse, abuse, and addiction based on family and social history. Patient was counseled regarding potential side effects of opioids including risk or misuse, abuse, addiction. Patient was assessed for recent (w/in 60d) opioid use. Patient was evaluated for risk factors for opioid related harm. If identified to be at high risk for Opioid -related harm, the prescribed considered naloxone. Deshaun Pop MD Also-using CPAP regularly but hasn't f/u with Sleep med--declines for now. Past Medical History: Diagnosis Date AKOSUA (generalized anxiety disorder) 06/12/2019 HTN, goal below 140/90 06/13/2016 Hypertension Insomnia 03/08/2012 ICD-10 update of inactive term Inverted follicular keratosis 10/19/2018 Back of thigh, shave biopsy 10/17. Lumbar degenerative disc disease 03/18/2014 Lumbar spinal stenosis 08/20/2014 MEDICATION USE AGREEMENT 04/08/2014 Patient signed 04/08/2014 Christian Agrawal MD [facility] Nontraumatic incomplete tear of left rotator cuff 03/17/2019 Past Surgical History: Procedure Laterality Date ARTHOPALLAVI,W/ROTATOR CUFF Left 04/01/2019 ARTHROSCOPY SHOULDER ROTATOR CUFF performed by Belgica Contreras DO at OR [facility] DESTROY LUMBAR SACRAL NERVE IMAGING ADD'L 10/29/2014 DESTROY LUMBAR SACRAL NERVE IMAGING ADD'L performed by Curt Martinez DO at OR [facility] FOOT/TOE SURGERY NEC Left 5th MT L-/S-SPINE PARAVERTEBRAL FACET INJ,1 LEVEL 10/16/2014 L-/S-SPINE PARAVERTEBRAL FACET INJ, 1 LEVEL performed by Curt Martinez DO at OR [facility] L-/S-SPINE PARAVERTEBRL FACET INJ,2 LEVELS 09/24/2014 L-/S-SPINE PARAVERTEBRAL FACET INJ, 2 LEVELS performed by Curt Martinez DO at OR [facility] L-/S-SPINE PARAVERTEBRL FACET INJ,2 LEVELS Left 02/12/2020 Dr Sevilla [facility] L5-s1, and S1 REMOVE TONSILS & ADENOIDS, UNDER 12 REPAIR BICEPS TENDON RUPTURE 2002 R SACROILIAC JOINT INJECT W/GUIDANCE 12/08/2014 INJECTION SACROILIAC JOINT performed by Curt Martinez DO at OR [facility] SHOULDER ARTHROSCOPY SURGERY 2003 R labral repair college football injury SHOULDER ARTHROSCOPY, BICEPS TENODESIS Left 04/01/2019 ARTHROSCOPY SHOULDER BICEP TENODESIS performed by Belgica Contreras DO at OR [facility] VASECTOMY Bilateral 03/08/2021 VASECTOMY performed by Hernandez Madrid MD at OR [facility] Social History Tobacco Use Smoking status: Never Smokeless tobacco: Never Substance Use Topics Alcohol use: Yes Alcohol/week: 4.2 standard drinks of alcohol Types: 5 5 oz of wine per week Comment: 6-8 weeks. 6-8 / weekend. Vaping/E-Cigarette Use Vaping/E-Cigarette Use Never User Vaping/E-Cigarette Substances Nicotine No Other No Flavoring No THC No Cannabidiol (CBD) No Vaping/E-Cigarette Devices Disposable No Pre-filled or Refillable Cartridge No Refillable Tank No Pre-filled Pod No Current Outpatient Medications Medication Sig Dispense Refill lansoprazole DR (PREVACID) 15 MG CPDR Take 1 Cap by mouth daily. 30 minutes before the first meal of the day 30 Cap 11 LORazepam 0.5 MG Oral Tablet (Ativan) Take 1 Tablet by mouth 3 times a day as needed for Anxiety. Don't take with oxycodone within 6 h. 15 Tablet 0 Fluticasone Propionate 50 MCG/ACT Nasal Suspension (Flonase) SQUIRT 2 SPRAYS IN EACH NOSTRIL ONCE DAILY 16 g 11 Ozempic (1 MG/DOSE) 4 MG/3ML Subcutaneous Solution Pen-injector (Semaglutide (1 MG/DOSE)) Inject 1 mg under the skin once a week. 3 mL 1 oxyCODONE HCl 10 MG Oral Tablet (Roxicodone) Take 1 Tablet by mouth every 6 hours as needed for Pain, Severe. 120 Tablet 0 Lisinopril 40 MG Oral Tablet Take 1 Tablet by mouth in the morning. 90 Tablet 3 Meloxicam 7.5 MG Oral Tablet (Mobic) Take 1-2 daily as needed for pain. 50 Tablet 5 Sertraline HCl 100 MG Oral Tablet (Zoloft) Take 2 Tablets by mouth in the morning. 180 Tablet 3 Pregabalin 50 MG Oral Capsule (Lyrica) TAKE 1 CAPSULE DAILY IN ADDITION TO 200MG TWO TIMESA DAY (Patient not taking: Reported on 06/20/2024) 90 Capsule 1 Zolpidem Tartrate 10 MG Oral Tablet (Ambien) Take 1 Tablet by mouth at bedtime as needed for Sleep.(Patient not taking: Reported on 06/20/2024) 30 Tablet 2 Pregabalin 200 MG Oral Capsule (Lyrica) TAKE 1 CAPSULE TWICE DAILY (Patient not taking: Reported on06/20/2024) 180 Capsule 1 No current facility-administered medications for this visit. Objective Blood pressure 156/84, pulse 100, temperature 98.7 F (37.1 C), temperature source Tympanic, resp. rate 20, SpO2 98%. Physical Exam VITALS: BP- 154/80 Physical: BP 156/84 | Pulse 100 | Temp 98.7 F (37.1 C) (Tympanic) | Resp 20 | SpO2 98% General-No apparent Distress, obese Head, Eyes, Ears, Nose, Throat--Normocephalic, atraumatic Neck-Supple Lymph-no lymphadenopathy Lungs-Clear to Auscultation bilaterally Cardiovascular--Regular rate & Rhythm, +s1, s2, no murmurs Abdomen-soft, nontender, nondistended + bowel sounds Mskel back limited ROM due to pain, parapsinals NT, SI NT. Extremities--no edema Neuro-alert & oriented x3 Results LABS Labs reviewed/ordered RADIOLOGY reviewed Assessment and Plan Assessment & Plan Chronic Back Pain Exacerbation of chronic back pain after a fall, with new radiation to the left leg. MRI showed continued degenerative changes. Pain management is planning epidural steroid injections targeting L3 andL4. Patient is trying to avoid surgery. -Continue current pain management plan with epidural steroid injections. -Consider Butrans patch for more consistent pain control if injections are not effective. -Continue Oxycodone as needed Hypertension Elevated blood pressure readings since the fall, likely secondary to pain. Patient is currently on Lisinopril. -Recheck blood pressure at home and email results in a couple of weeks. -Consider adding a diuretic if blood pressure remains elevated. -pt declines Rx for now Nocturia Increased frequency of urination at night, likely due to fluid intake before bed. -Advise to limit fluid intake 2 hours before bed. General Health Maintenance -Order labs including BMP, A1C, and testosterone. -Order Cologuard for colorectal cancer screening. RBA discussed -Continue CPAP for sleep apnea management.-rec Sleep med f/u when ready -Follow-up appointment in 1 year, or sooner if needed. Spinal stenosis of lumbar region with neurogenic claudication (Primary) - Meloxicam 7.5 MG Oral Tablet (Mobic); Take 1-2 daily as needed for pain. - BASIC METABOLIC PANEL; Future; Expected date: 06/20/2024 - PAIN MANAGEMENT DRUG PANEL, URINE W/ INTERPRETATION; Future; Expected date: 06/20/2024 HTN, goal below 140/90 - Lisinopril 40 MG Oral Tablet; Take 1 Tablet by mouth in the morning. AKOSUA (generalized anxiety disorder) - Sertraline HCl 100 MG Oral Tablet (Zoloft); Take 2 Tablets by mouth in the morning. Class 3 severe obesity due to excess calories with serious comorbidity in adult, unspecified BMI (HCC) Screen for colon cancer - COLOGUARD Low libido - TESTOSTERONE, TOTAL Prediabetes - HEMOGLOBIN A1C Wrap-Up Follow Up: Return in about 1 year (around 06/20/2025) for Return with Physician. | For: Return with Physician Time: I spent a total of 30-39 minutes (exact time 34 mins) on the date of service in preparation, delivery, and documentation of the care provided to Desean Posey DO excluding any time spent in the performance of separately billed services. Text in this note was generated using an [employer] documentation service. I discussed the use of a device to record and summarize our discussion today. All persons present during the encounter consented to its use. documented in this encounter Nursing Notes * Yady Christensen LPN - 06/20/2024 11:50 AM EST The patient has been properly identified by confirmation of name and date of . Chief Complaint Patient presents with Physical-Exam Yearly physical documented in this encounter Plan of Treatment Upcoming Encounters Date Type Department Care Team (Late st Contact Info) Description 07/24/2025 8:20 AM EDT Office Visit Family [facility] [address] [phone] Deshaun Pop MD [address] [id number] Scheduled Orders Name Type Priority Associated Diagnoses Orde r Schedule COLOGUARD Lab Unrestricted Lab Screen for colon cancer Ordered: 06/20/2024 BASIC METABOLIC PANEL Lab Routine Spinal stenosis of lumbar region with neurogenic claudication Expected: 06/20/2024 (Approximate), Expires: 06/20/2025 PAIN MANAGEMENT DRUG PANEL, URINE W/ INTERPRETATION Lab Routine Spinal stenosis of lumbar region with neurogenic claudication Expected: 06/20/2024 (Approximate), Expires: 06/20/2025 TESTOSTERONE, TOTAL Lab Routine Low libido Ordered: 06/20/2024 HEMOGLOBIN A1C Lab Routine Prediabetes Ordered: 06/20/2024 Health Maintenance Due Date Last Done Comments [...] 2023 02/18/2022, 02/23/2021, 02/06/2020, Additional history exists GFR 08/08/2024 08/09/2023, 06/01, 06/14/2023, Additional history exists Diabetes Screening 06/14/2026 06/14/2023, 0 06/14/2023, 12/29/2020, Additional history exists Lipid Panel 06/14/2028 06/14/2023, [...] this encounter Medical Devices Implanted Type Area Rope Walker Device Identifier Shelf Expiration Date Model / Serial / Lot System Implant Speedbridge - [id number] Implanted:Qty: 1 on 04/01/2019 by Belgica Contreras DO at OR [facility] Left: Shoulder [employer] 10/28/2020 [id number] -4 / / [id number] Biocomposite Swivelock Suture Kegley 5.5x22mm Implanted:Qty: 1 on 04/01/2019 by Belgica Contreras DO at OR [facility] Left: Shoulder 03/30/2020 [id number] -2 / / [id number] Prox [employer] Implant Syst - [id number] Implanted:Qty: 1 on 04/01/2019 by Belgica Contreras DO at OR [facility] Left: Shoulder [employer] 11/29/2023 [id number] / / [id number] documented as of this encounter Visit Diagnoses Diagnosis Spinal stenosis of lumbar region with neurogenic claudication- Primary Spinal stenosis, lumbar region, with neurogenic claudication HTN, goal below 140/90 Unspecified essential hypertension AKOSUA (generalized anxiety disorder) Generalized anxiety disorder Class 3 severe obesity due to excess calories with serious comorbidity in adult, unspecified BMI (HCC) Screen for colon cancer Special screening for malignant neoplasms, colon Low libido Decreased libido Prediabetes Other abnormal glucose VANE on CPAP Obstructive sleep apnea (adult) (pediatric) documented in this encounter Advance Directives * [...] and were consensually agreed upon. Care Teams Distilling Department Supervisor Relationship Specialty Start Date End Date Deshaun Pop MD [address] [address] PCP - General Family Medicine 07/25/18 documented as of this encounter"
--- OUTSIDE RECORDS SUMMARY | 2024-07-12 11:14 | External Medical Summary | Summary of Care ---
Author Name Unknown Organization [facility] Address [address] [place] [address] Phone [phone] Care Team Providers Care Bakery Team Leader Name Role Phone Deshaun Ledezma MD Primary Care Provider + Reason for Visit * Reason Onset Date Comments Medication Refill 01/30/2024 Encounter Details Date Type Department Care Team (Late st Contact Info) Description 01/30/2024 Refill Family Practice [facility] [address] [place] [address] Deshaun Ledezma MD [address] [facility] [place] [address] Lumbar degenerative disc disease; Spinal stenosis of lumbar region with neurogenic claudication; MEDICATION USE AGREEMENT Allergies No known active allergiesdocumented as of this encounter (statuses as of 02/01/2024) Medications Medication Sig Dispensed Refills Start Date End Date Status fexofenadine (CANDE) 180 MG TabletIndications :Allergic rhinitis, unspecified allergic rhinitis type Take 1 Tab by mouth daily as needed for Allergies. 30 Tab 11 04/29/[address] (PREVACID) 15 MG CPDRIndications:G astroesophageal reflux disease, esophagitis presence not specified Take 1 Cap by mouth daily. 30 minutes before the first meal of the day 30 Cap 11 11/29/2017 Active Meloxicam 7.5 MG Tablet Take 1-2 daily as needed for pain. 50 Tab 5 12/16/2019 Active Cephalexin 500 MG Oral Capsule (Keflex) Take 1 Capsule by mouth 3 times a day. 9 Capsule 03/08/2021 Active Additional Information Patient not taking.Reported on 03/24/2021 Amoxicillin-Pot Clavulanate 875-125 MG Oral Tablet Take by mouth 1 Tablet in the morning AND 1 Tablet before bedtime. 20 Tablet 10/11/2021 Active methylPREDNISolon e 4 MG Oral Tablet Therapy Pack (Medrol Dosepack) follow package directions 21 Tablet 10/11/2021 Active Pregabalin 50 MG Oral Capsule (Lyrica) TAKE 1 CAPSULE DAILY IN ADDITION TO 200MG TWO TIMESA DAY 90 Capsule 1 12/09/2021 Active Montelukast Sodium 10 MG Oral Tablet (Singulair) Take by mouth 1 Tablet in the morning. 90 Tablet 3 12/09/2021 Active Diclofenac Sodium 1 % External Gel (Voltaren) Apply topically to affected area 3 times a day as needed for Pain. 100 g 2 05/25/2022 Active LORazepam 0.5 MG Oral Tablet (Ativan) Take 1 Tablet by mouth 3 times a day as needed for Anxiety. Don't take with oxycodone within 6 h. 15 Tablet 05/27/2022 Active Fluticasone Propionate 50 MCG/ACT Nasal Suspension (Flonase)Indicati ons:Chronic sinusitis SQUIRT 2 SPRAYS IN EACH NOSTRIL ONCE DAILY 16 g 11 07/14/2022 Active Zolpidem Tartrate 10 MG Oral Tablet (Ambien) Take 1 Tablet by mouth at bedtime as needed for Sleep. 30 Tablet 2 08/18/2022 Active Ozempic (1 MG/DOSE) 4 MG/3ML Subcutaneous Solution Pen-injector (Semaglutide (1 MG/DOSE))Indicati ons:Class 3 severe obesity due to excess calories with serious comorbidity in adult, unspecified BMI (HCC) Inject 1 mg under the skin once a week. 3 mL 1 04/27/2023 Active Lisinopril 40 MG Oral TabletIndications :HTN, goal below 140/90 Take 1 Tablet by mouth in the morning. 90 Tablet 3 05/02/2023 Active Pregabalin 200 MG Oral Capsule (Lyrica)Indicatio ns:Lumbar degenerative disc disease TAKE 1 CAPSULE TWICE DAILY 180 Capsule 1 05/02/2023 Active Sertraline HCl 100 MG Oral Tablet (Zoloft)Indicatio ns:AKOSUA (generalized anxiety disorder) Take 1.5 Tablets by mouth in the morning. 135 Tablet 3 05/02/2023 Active oxyCODONE-Acetami nophen 10-325 MG Oral TabletIndications :Lumbar degenerative disc disease,MEDICATIO N USE AGREEMENT,Spinal stenosis of lumbar region, unspecified whether neurogenic claudication present Take 1 Tablet by mouth every 6 hours as needed for Pain, Severe. 60 Tablet 01/04/2024 Active oxyCODONE HCl 10 MG Oral Tablet (Roxicodone)Indic ations:Lumbar degenerative disc disease,Spinal stenosis of lumbar region with neurogenic claudication,MEDI CATION USE AGREEMENT Take 1 Tablet by mouth every 6 hours as needed for Pain, Severe. 120 Tablet 02/01/2024 Active oxyCODONE HCl 10 MG Oral Tablet (Roxicodone)Indic ations:Lumbar degenerative disc disease,Spinal stenosis of lumbar region with neurogenic claudication,MEDI CATION USE AGREEMENT Take 1 Tablet by mouth every 6 hours as needed for Pain, Severe. 120 Tablet 11/03/2023 4 Discontinue d(Refill) documented as of this encounter (statuses as of 02/01/2024) Active Problems Problem Noted Date Diagnosed Date B12 deficiency 03/09/2023 AKOSUA (generalized anxiety disorder) 06/12/2019 Nontraumatic incomplete tear of left rotator cuf f 03/17/2019 Inverted follicular keratosis 10/19/2018 Overview: Back of thigh, shave biopsy 10/17. Well adult exam 11/29/2017 Overview: Consider VANE testing? Need discuss. Quentin. 03/19 start OTC [id number]. Possible c diff treated on own w/Vanco PO (2019) HTN, goal below 140/90 06/13/2016 Lumbar spinal stenosis 08/20/2014 MEDICATION USE AGREEMENT 04/08/2014 Overview: Patient signed 04/08/2014 Ameena Geiger Lumbar degenerative disc disease 03/18/2014 Insomnia 03/08/2012 Overview: ICD-10 update of inactive term documented as of this encounter (statuses as of 02/01/2024) Resolved Problems Problem Noted Date Diagnosed Date Resolved Date Inflammation of sacroiliac joint 11/29/2017 03/17/2019 Body mass index (BMI) of 40. 0 to 44.9 in adult 07/11/2017 06/12/2019 Overview: Per Obesity protocol #1 Spinal stenosis of lumbar region 06/15/2017 09/21/2017 Left-sided low back pain without sciatica 06/18/2015 09/21/2017 Foot pain 12/13/2013 09/21/2017 Backache 03/08/2012 09/21/2017 documented as of this encounter (statuses as of 02/01/2024) Immunizations Name Administration Dates Next Due COVID-19 [...] Answer Date Recorded PHQ-2 Score -1 03/05/2018 Utilities Answer Date Recorded Do you have trouble paying y our heating, water, or electric bill? (Adult - for ages 18 years and over) Not on file 10/17/2023 Is your family able to pay t he heat, water, or electric bill? (Household - for ages 0-17 years) Not on file 10/17/2023 Does your family have access to good internet? (Household - for ages 0-17 years) Not on file 10/17/2023 Social Connections Answer Date Recorded How often do you feel lonely or isolated from those around you? (Adult - for ages 18 years and over) Not on file 10/17/2023 Sex and Gender Information Value Date Recorded Sex Assigned at Not on file Gender Identity Not on file Sexual Orientation Not on file Job Start Date Occupation Industry Not on file Not on file Not on file documented as of this encounter Miscellaneous Notes * Telephone Encounter - Deshaun Ledezma MD - 02/01/2024 11:31 AM EDT Signed Prescriptions: Disp Refills oxyCODONE HCl 10 MG Oral Tablet (Roxicodon*120 Ta*0 Sig: Take 1 Tablet by mouth every 6 hours as needed for Pain, Severe.Authorizing Provider: DESHAUN LEDEZMA- * Telephone Encounter - Rose Ashley [facility] - 02/01/2024 7:45 AM EDTPending Prescriptions: Disp Refills oxyCODONE HCl 10 MG Oral Tablet (Roxicodon*120 Ta*0 Sig: Take 1 Tablet by mouth every 6 hours as needed for Pain, Severe. * Telephone Encounter - Rose Ashley RP - 02/01/2024 7:44 AM EDT I have reviewed the patients controlled substance dispensing history in the Prescription Drug Monitoring Program in compliance with the [facility] regulations before prescribing a controlled substance. PDMP checked on 02/01/2024. Pending Prescriptions: Disp Refills oxyCODONE HCl 10 MG Oral Tablet (Roxicodo*120 Ta*0 Sig: Take 1 Tablet by mouth every 6 hours as needed for Pain, Severe. Last Visit: 2022 (in office), 04/14/2023 (telemedicine) Next Visit: 04/19/2024 Date medication was last filled: 11/07/23 Date medication is due for refill: 12/06/23 Pharmacy: [id number] [facility] Is this request for a controlled substance? Yes and Urine Drug Screen Not completed Toxicology results: Results for orders placed or performed in visit on 01/06/22 PAIN MANAGEMENT DRUG PANEL, URINE W/ INTERPRETATION Result Value Compliance Interpretation Based on the medication information provided: The positive oxycodone screening result is CONSISTENT with oxycodone use. Confirmatory testing is available upon request. Amphetamines Screen, U Negative Benzodiazepines Screen, U Negative Cannabinoids Screen, U Negative Cocaine Metabolite Screen, U Negative Fentanyl Screen, U Negative Hydrocodone Screen, U Negative Methadone Metabolite Screen, U Negative Morphine/Codeine Screen, U Negative Oxycodone Screen, U Positive (A) Valid Interpretation Normal Creatinine, U 65 Narrative Cutoff [...] SCREEN, URINE, W/ CONFIRMATION Result Value Amphetamine NEGATIVE Barbiturates NEGATIVE Benzodiazepines NEGATIVE Cannabinoids NEGATIVE Cocaine Metabolite NEGATIVE Morphine / Codeine NEGATIVE METHADONE METABOLITE NEGATIVE OXYCODONE POSITIVE (A) TOX COMMENT THE ABOVE SCREENING RESULTS ARE PRESUMPTIVE AND CAN ONLY BE USED FOR MEDICAL PURPOSES. POSITIVE RESULTS REFLEX TO CONFIRMATORY TESTING. Cutoff Concentration Please approve if appropriate. Thanks, Rose Ashley Clinical Pharmacist [facility] Services ([facility]) [phone] 02/01/2024, 7:45 AM documented in this encounter Plan of Treatment Upcoming Encounters Date Type Department Care Team (Late st Contact Info) Description 04/19/2024 3:20 PM EST Office Visit Family Practice [facility] [address] [place] [address] Deshaun Ledezma MD [address] [place] [address] Health Maintenance Due Date Last Done Comments [...] 02/18/2022, 02/23/2021, 02/06/2020, Additional history exists GFR 06/14/2024 06/14/2023, 12/01, 08/25/2020, Additional history exists Diabetes Screening 06/14/2026 06/14/2023, 0 12/29/2020, 08/25/2020, Additional history exists Lipid Panel 06/14/2028 06/14/2023, 10/17/2017 DTap/Tdap Vaccines (3 - Td or Tdap) 01/22/2032 2022, 11/22/2010, 10/31/2000 HPV (Gardasil) Vaccine Aged Out No lo nger eligible based on patient's age to complete this topic MENINGOCOCCAL (MENACTRA/MENVEO) Aged Out No longer eligible based on patient's age to complete this topic Pneumococcal Vaccine: Pediatrics (0 to 5 Years) and At-Risk Patients (6 to 64 Years) Aged Out No longer eligible based on patient's age to complete this topic documented as of this encounter Medical Devices Implanted Type Area Senior [employer] Soa Developer Device Identifier Shelf Expiration Date Model / Serial / Lot System Implant Speedbridge - [id number] Implanted:Qty: 1 on 04/01/2019 by Belgica Contreras DO at OR [facility] Left: Shoulder [employer] 10/28/2020 AR-2600SBS -4 / / [id number] Biocomposite Swivelock Suture [place] 5.5x22mm Implanted:Qty: 1 on 04/01/2019 by Belgica Contreras DO at OR [facility] Left: Shoulder 03/30/2020 AR-2323BCT -2 / / [id number] Prox Tenodesis Implant Syst - [id number] Implanted:Qty: 1 on 04/01/2019 by Belgica Contreras DO at OR [facility] Left: Shoulder [employer] 11/29/2023 AR-2290 / / [id number] documented as of this encounter Visit Diagnoses [...] and were consensually agreed upon. Care Teams Bakery Team Leader Relationship Specialty Start Date End Date Deshaun Ledezma MD [address] [place] [address] PCP - General Family Medicine 07/25/18 documented as of this encounter
--- OUTSIDE RECORDS SUMMARY | 2024-07-12 11:14 | External Medical Summary | Summary of Care ---
Author Name Unknown Organization [facility] Address [address] [place] [address] Phone [phone] Care Team Providers Care Accounting Administrative Assistant Name Role Phone Deshaun Pop MD Primary Care Provider + Reason for Visit * Reason Onset Date Comments Medication Refill 03/12/2024 Encounter Details Date Type Department Care Team (Late st Contact Info) Description 03/12/[address] [facility] [address] [address] Carlene Harding CRNP [address] [address] Class 3 severe obesity due to excess calories with serious comorbidity in adult, unspecified BMI (HCC) Allergies No known active allergiesdocumented as of this encounter (statuses as of 03/14/2024) Medications fexofenadine (CANDE) 180 MG TabletIndication s:Allergic rhinitis, unspecified allergic rhinitis type Take 1 Tab by mouth daily as needed for Allergies. 30 Tab [address] (PREVACID) 15 MG CPDRIndications: Gastroesophageal reflux disease, esophagitis presence not specified Take 1 Cap by mouth daily. 30 minutes before the first meal of the day 30 Cap 11 8 Active Meloxicam 7.5 MG Tablet Take 1-2 daily as needed for pain. 50 Tab 5 0 Active Cephalexin 500 MG Oral Capsule (Keflex) Take 1 Capsule by mouth 3 times a day. 9 Capsule 1 Active Additional Information Patient not taking.Reported on 03/24/2021 Amoxicillin-Pot Clavulanate 875-125 MG Oral Tablet Take by mouth 1 Tablet in the morning AND 1 Tablet before bedtime. 20 Tablet 2 Active methylPREDNISolo ne 4 MG Oral Tablet Therapy Pack (Medrol Dosepack) follow package directions 21 Tablet 2 Active Pregabalin 50 MG Oral Capsule (Lyrica) TAKE 1 CAPSULE DAILY IN ADDITION TO 200MG TWO TIMESA DAY 90 Capsule 1 2 Active Montelukast Sodium 10 MG Oral Tablet (Singulair) Take by mouth 1 Tablet in the morning. 90 Tablet 3 2 Active Diclofenac Sodium 1 % External Gel (Voltaren) Apply topically to affected area 3 times a day as needed for Pain. 100 g 2 3 Active LORazepam 0.5 MG Oral Tablet (Ativan) [...] 2 08/29/2022 12:17 PM EDT 3 Active Ozempic (1 MG/DOSE) 4 MG/3ML Subcutaneous Solution Pen-injector (Semaglutide (1 MG/DOSE))Indicat ions:Class 3 severe obesity due to excess calories with serious comorbidity in adult, unspecified BMI (HCC) Inject 1 mg under the skin once a week. 3 mL 1 3 Active Lisinopril 40 MG Oral TabletIndication s:HTN, goal below 140/90 Take 1 Tablet by mouth in the morning. 90 Tablet 3 4 Active Pregabalin 200 MG Oral Capsule (Lyrica)Indicati ons:Lumbar degenerative disc disease TAKE 1 CAPSULE TWICE DAILY 180 Capsule 1 4 Active Sertraline HCl 100 MG Oral Tablet (Zoloft)Indicati ons:AKOSUA (generalized anxiety disorder) Take 1.5 Tablets by mouth in the morning. 135 Tablet 3 4 Active oxyCODONE-Acetam inophen 10-325 MG Oral TabletIndication s:Lumbar degenerative disc disease,MEDICATI ON USE AGREEMENT,Spinal stenosis of lumbar region, unspecified whether neurogenic claudication present Take 1 Tablet by mouth every 6 hours as needed for Pain, Severe. 60 Tablet 4 Active oxyCODONE HCl 10 MG Oral Tablet (Roxicodone)Janey cations:Lumbar degenerative disc disease,Spinal stenosis of lumbar region with neurogenic claudication,MED ICATION USE AGREEMENT Take 1 Tablet by mouth every 6 hours as needed for Pain, Severe. 120 Tablet 4 Active documented as of this encounter (statuses as of 03/14/2024) Active Problems Problem Noted Date Diagnosed Date B12 deficiency 03/09/2023 AKOSUA (generalized anxiety disorder) 06/12/2019 Nontraumatic incomplete tear of left rotator cuf f 03/17/2019 Inverted follicular keratosis 10/19/2018 Overview (10/19/2018): Back of thigh, shave biopsy 10/17. Well adult exam 11/29/2017 Overview (06/12/2019): Consider VANE testing? Need discuss. Ambien. 03/19 start OTC [id number]. Possible c diff treated on own w/Vanco PO (2019) HTN, goal below 140/90 06/13/2016 Lumbar spinal stenosis 08/20/2014 MEDICATION USE AGREEMENT 04/08/2014 Overview (06/12/2019): Patient signed 04/08/2014 Ameena Geiger Lumbar degenerative disc disease 03/18/2014 Insomnia 03/08/2012 Overview (01/30/2017): ICD-10 update of inactive term documented as of this encounter (statuses as of 03/14/2024) Resolved Problems Problem Noted Date Diagnosed Date Resolved Date Inflammation of sacroiliac joint 11/29/2017 03/17/2019 Body mass index (BMI) of 40. 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 Not on file Not on file Not on file documented as of this encounter Miscellaneous Notes * Telephone Encounter - Lydia Zapata [facility] - 03/14/2024 3:40 PM EST Refused Prescriptions: Disp Refills Ozempic (1 MG/DOSE) 4 MG/3ML Subcutaneous *3 mL 1 Sig: Inject 1 mg under the skin once a week. Refused By: RACQUEL MARTINO Reason for Refusal: Dose needs clarification * Telephone Encounter - Racquel Martino [facility] - 03/13/2024 6:41 PM ESTRefused Prescriptions: Disp Refills Ozempic (1 MG/DOSE) 4 MG/3ML Subcutaneous *3 mL 1 Sig: Inject 1 mg under the skin once a week. Refused By: RACQUEL MARTINO Reason for Refusal: Dose needs clarification * Telephone Encounter - Racquel Martino [facility] - 03/13/2024 6:23 PM EST Patient asking provider to restart Ozempic due to [facility] coverage with Prior Auth. Patient is NOT a Type 2 DM. Unlikely that Ozempic would be covered without Type 2 DM diagnosis along with A1C to support over 6.5. Please advise, Thank you, Racquel Martino [facility] Clinical Pharmacist Centralized Clinical Pharmacy Services ([facility]) 03/13/24 6:40 PM [phone] documented in this encounter Plan of Treatment Upcoming Encounters Date Type Department Care Team (Late st Contact Info) Description 04/19/2024 3:20 PM EST Office Visit Family [facility] [address] [place] [address] Deshaun Pop MD [address] [place] [address] Health Maintenance Due Date Last Done Comments [...] this encounter Medical Devices Implanted Type Area Technical Intern Device Identifier Shelf Expiration Date Model / Serial / Lot System Implant Speedbridge - [id number] Implanted:Qty: 1 on 04/01/2019 by Belgica Contreras DO at OR [facility] Left: Shoulder [employer] 10/28/2020 AR-2600SBS -4 / / [id number] Biocomposite Swivelock Suture [place] 5.5x22mm Implanted:Qty: 1 on 04/01/2019 by Belgica Contreras DO at OR [facility] Left: Shoulder 03/30/2020 AR-2323BCT -2 / / [id number] Prox [employer]odesis Implant Syst - [id number] Implanted:Qty: 1 on 04/01/2019 by Belgica Contreras DO at OR [facility] Left: Shoulder [employer] 11/29/2023 AR-2290 / / [id number] documented as of this encounter Visit Diagnoses Diagnosis Class 3 severe obesity due to excess calories with serious comorbidity in adult, unspecified BMI (HCC) documented in this encounter Advance Directives * [...] and were consensually agreed upon. Care Teams Accounting Administrative Assistant Relationship Specialty Start Date End Date Deshaun Pop MD [address] [facility] [place] [address] PCP - General Family Medicine 07/25/18 documented as of this encounter
--- OUTSIDE RECORDS SUMMARY | 2024-07-12 11:14 | External Medical Summary | Summary of Care ---
Author Name Unknown Organization [facility] Address [address] [place] [address] Phone [phone] Care Team Providers Care Recreation Assistant Name Role Phone Deshaun Ledezma MD Primary Care Provider + Reason for Visit * Reason Onset Date Comments Medication Refill 05/21/2024 Encounter Details Date Type Department Care Team (Late st Contact Info) Description 05/21/2024 Refill [facility] [address] [facility] [place] [address] Fabiana Nixon MD [address] [facility] [place] [address] Lumbar degenerative disc disease; Spinal stenosis of lumbar region with neurogenic claudication; MEDICATION USE AGREEMENT Allergies No known active allergiesdocumented as of this encounter (statuses as of 05/27/2024) Medications fexofenadine (CANDE) 180 MG TabletIndication s:Allergic rhinitis, unspecified allergic rhinitis type Take 1 Tab by mouth daily as needed for Allergies. 30 Tab 11 04/29/[address] (PREVACID) 15 MG CPDRIndications: Gastroesophageal reflux disease, esophagitis presence not specified Take 1 Cap by mouth daily. 30 minutes before the first meal of the day 30 Cap 11 11/30/19 18 Active Meloxicam 7.5 MG Tablet Take 1-2 daily as needed for pain. 50 Tab 5 12/16/19 20 Active Cephalexin 500 MG Oral Capsule (Keflex) Take 1 Capsule by mouth 3 times a day. 9 Capsule 03/08/20 21 Active Additional Information Patient not taking.Reported on 03/24/2021 Amoxicillin-Pot Clavulanate 875-125 MG Oral Tablet Take by mouth 1 Tablet in the morning AND 1 Tablet before bedtime. 20 Tablet 10/12/19 22 Active methylPREDNISolo ne 4 MG Oral Tablet Therapy Pack (Medrol Dosepack) follow package directions 21 Tablet 10/12/19 22 Active Pregabalin 50 MG Oral Capsule (Lyrica) TAKE 1 CAPSULE DAILY IN ADDITION TO 200MG TWO TIMESA DAY 90 Capsule 1 12/10/19 22 Active Montelukast Sodium 10 MG Oral Tablet (Singulair) Take by mouth 1 Tablet in the morning. 90 Tablet 3 12/10/19 22 Active Diclofenac Sodium 1 % External Gel (Voltaren) Apply topically to affected area 3 times a day as needed for Pain. 100 g 2 05/25/19 23 Active LORazepam 0.5 MG Oral Tablet (Ativan) [...] 08/29/2022 12:17 PM EDT 08/19/19 23 Active Ozempic (1 MG/DOSE) 4 MG/3ML Subcutaneous Solution Pen-injector (Semaglutide (1 MG/DOSE))Indicat ions:Class 3 severe obesity due to excess calories with serious comorbidity in adult, unspecified BMI (HCC) Inject 1 mg under the skin once a week. 3 mL 1 04/27/20 23 Active Lisinopril 40 MG Oral TabletIndication s:HTN, goal below 140/90 Take 1 Tablet by mouth in the morning. 90 Tablet 3 05/02/19 24 Active Pregabalin 200 MG Oral Capsule (Lyrica)Indicati ons:Lumbar degenerative disc disease TAKE 1 CAPSULE TWICE DAILY 180 Capsule 1 05/02/19 24 Active Sertraline HCl 100 MG Oral Tablet (Zoloft)Indicati ons:AKOSUA (generalized anxiety disorder) Take 1.5 Tablets by mouth in the morning. 135 Tablet 3 05/02/19 24 Active oxyCODONE-Acetam inophen 10-325 MG Oral TabletIndication s:Lumbar degenerative disc disease,MEDICATI ON USE AGREEMENT,Spinal stenosis of lumbar region, unspecified whether neurogenic claudication present Take 1 Tablet by mouth every 6 hours as needed for Pain, Severe. 60 Tablet 01/04/20 24 Active oxyCODONE HCl 10 MG Oral Tablet (Roxicodone)Janey cations:Lumbar degenerative disc disease,Spinal stenosis of lumbar region with neurogenic claudication,MED ICATION USE AGREEMENT Take 1 Tablet by mouth every 6 hours as needed for Pain, Severe. 120 Tablet 05/21/19 25 Active oxyCODONE HCl 10 MG Oral Tablet (Roxicodone)Janey cations:Lumbar degenerative disc disease,Spinal stenosis of lumbar region with neurogenic claudication,MED ICATION USE AGREEMENT Take 1 Tablet by mouth every 6 hours as needed for Pain, Severe. 120 Tablet 03/29/20 24 025 Discontin ued(Refil l) documented as of this encounter (statuses as of 05/27/2024) Active Problems Problem Noted Date Diagnosed Date B12 deficiency 03/09/2023 AKOSUA (generalized anxiety disorder) 06/12/2019 Nontraumatic incomplete tear of left rotator cuf f 03/17/2019 Inverted follicular keratosis 10/19/2018 Overview (10/19/2018): Back of thigh, shave biopsy 10/17. Well adult exam 11/29/2017 Overview (06/12/2019): Consider VANE testing? Need discuss. Qingien. 03/19 start OTC [id number]. Possible c diff treated on own w/Vanco PO (2019) HTN, goal below 140/90 06/13/2016 Lumbar spinal stenosis 08/20/2014 MEDICATION USE AGREEMENT 04/08/2014 Overview (06/12/2019): Patient signed 04/08/2014 Ameena Carrasco [place] Lumbar degenerative disc disease 03/18/2014 Insomnia 03/08/2012 Overview (01/30/2017): ICD-10 update of inactive term documented as of this encounter (statuses as of 05/27/2024) Resolved Problems Problem Noted Date Diagnosed Date Resolved Date Inflammation of sacroiliac joint 11/29/2017 03/17/2019 Body mass index (BMI) of 40. 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 with outre ach to [place]. Not on file Not on file Not on file documented as of this encounter Miscellaneous Notes * Telephone Encounter - Desahun Ledezma MD - 05/27/2024 9:54 AM EST Letter sent. * Telephone Encounter - Deshaun Ledezma MD - 05/21/2024 9:45 PM ESTSigned Prescriptions: Disp Refills oxyCODONE HCl 10 MG Oral Tablet (Roxicodon*120 Ta*0 Sig: Take 1 Tablet by mouth every 6 hours as needed for Pain, Severe. Authorizing Provider: DESHAUN LEDEZMA * Telephone Encounter - Deshaun Ledezma MD - 05/21/2024 9:[address] Posey--MyG sent--he needs OV /urine test in person w/me in the next month before his nextrefill. Can use private slot * Telephone Encounter - Rose Ashley [facility] - 05/21/2024 2:29 PM ESTPending Prescriptions: Disp Refills oxyCODONE HCl 10 MG Oral Tablet (Roxicodon*120 Ta*0 Sig: Take 1 Tablet by mouth every 6 hours as needed for Pain, Severe. * Telephone Encounter - Rose Ashley [facility] - 05/21/2024 2:29 PM EST I have reviewed the patients controlled substance dispensing history in the Prescription Drug Monitoring Program in compliance with the [facility] regulations before prescribing a controlled substance. PDMP checked on 05/21/2024. Pending Prescriptions: Disp Refills oxyCODONE HCl 10 MG Oral Tablet (Roxicodo*120 Ta*0 Sig: Take 1 Tablet by mouth every 6 hours as needed for Pain, Severe. Last Visit: 2022 (in office), 04/14/2023 (telemedicine) Next Visit: Visit date not found Date medication was last filled: 03/29/24 Date medication is due for refill: 04/27/24 Pharmacy: [facility] [id number] Is this request for a controlled substance? [...] Clinical Pharmacist [facility] ([facility]) [phone] 05/21/2024, 2:29 PM documented in this encounter Plan of Treatment Health Maintenance Due Date Last Done Comments [...] this encounter Medical Devices Implanted Type Area Drapery Counselor Device Identifier Shelf Expiration Date Model / Serial / Lot System Implant Speedbridge - [id number] Implanted:Qty: 1 on 04/01/2019 by Belgica Contreras DO at OR [facility] Left: Shoulder [employer] 10/28/2020 AR-2600SBS -4 / / [id number] Biocomposite Swivelock Suture [place] 5.5x22mm Implanted:Qty: 1 on 04/01/2019 by Belgica Contreras DO at OR [facility] Left: Shoulder 03/30/2020 AR-2323BCT -2 / / [id number] Prox [employer]odesis Implant Syst - [id number] Implanted:Qty: 1 on 04/01/2019 by Belgica Conrteras DO at OR [facility] Left: Shoulder [employer] 11/29/2023 AR-2290 / / [id number] documented as of this encounter Visit Diagnoses [...] and were consensually agreed upon. Care Teams Recreation Assistant Relationship Specialty Start Date End Date Deshaun Ledezma MD [address] [place] [address] PCP - General Family Medicine 07/25/18 documented as of this encounter
--- OUTSIDE RECORDS SUMMARY | 2024-07-12 11:14 | External Medical Summary | Summary of Care ---
Author Name Unknown Organization [facility] Address [address] [place] [address] Phone [phone] Care Team Providers Care Transportation Inspector Name Role Phone Deshaun Pop MD Primary Care Provider + Reason for Visit * Reason Onset Date Comments Medication Refill 03/27/2024 Encounter Details Date Type Department Care Team (Late st Contact Info) Description 03/27/2024 Refill Family Practice [facility] [address] [place] [address] Deshaun Pop MD [address] [facility] [place] [address] Lumbar degenerative disc disease; Spinal stenosis of lumbar region with neurogenic claudication; MEDICATION USE AGREEMENT Allergies No known active allergiesdocumented as of this encounter (statuses as of 03/29/2024) Medications fexofenadine (CANDE) 180 MG TabletIndication s:Allergic [...] for Pain, Severe. 120 Tablet 03/29/20 24 Active oxyCODONE HCl 10 MG Oral Tablet (Roxicodone)Janey cations:Lumbar degenerative disc disease,Spinal stenosis of lumbar region with neurogenic claudication,MED ICATION USE AGREEMENT Take 1 Tablet by mouth every 6 hours as needed for Pain, Severe. 120 Tablet 02/01/20 24 024 Discontin ued(Refil l) documented as of this encounter (statuses as of 03/29/2024) Active Problems Problem Noted Date Diagnosed Date B12 deficiency 03/09/2023 AKOSUA (generalized anxiety disorder) 06/12/2019 Nontraumatic incomplete tear of left rotator cuf f 03/17/2019 Inverted follicular keratosis 10/19/2018 Overview (10/19/2018): Back of thigh, shave biopsy 10/17. Well adult exam 11/29/2017 Overview (06/12/2019): Consider VANE testing? Need discuss. Ambien. 03/19 start OTC [id number]. Possible c diff treated on own w/Vanco PO (2019) HTN, goal below 140/90 06/13/2016 Lumbar spinal stenosis 08/20/2014 MEDICATION USE AGREEMENT 04/08/2014 Overview (06/12/2019): Patient signed 04/08/2014 Ameena Geiger Lumbar degenerative disc disease 03/18/2014 Insomnia 03/08/2012 Overview (01/30/2017): ICD-10 update of inactive term documented as of this encounter (statuses as of 03/29/2024) Resolved Problems Problem Noted Date Diagnosed Date Resolved Date Inflammation of sacroiliac joint 11/29/2017 03/17/2019 Body mass index (BMI) of 40. 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 Not on file Not on file Not on file documented as of this encounter Miscellaneous Notes * Telephone Encounter - Fabiana Nixon MD - 03/29/2024 9:04 AM EST Signed Prescriptions: Disp Refills oxyCODONE HCl 10 MG Oral Tablet (Roxicodon*120 Ta*0 Sig: Take 1 Tablet by mouth every 6 hours as needed for Pain, Severe.Authorizing Provider: FABIANA NIXON * Telephone Encounter - Fabiana Nixon MD - 03/29/2024 9:03 AM EST .I have reviewed the patient's controlled substance dispensing history in the Prescription Drug Monitoring Program in compliance with the [facility] regulations before prescribing a controlled substance. * Telephone Encounter - Iván Isaac [facility] - 03/29/2024 8:55 AM EST Pending Prescriptions: Disp Refills oxyCODONE HCl 10 MG Oral Tablet (Roxicodon*120 Ta*0 Sig: Take 1 Tablet by mouth every 6 hours as needed for Pain, Severe. * Telephone Encounter - Iván Isaac [facility] - 03/29/2024 8:51 AM EST I have reviewed the patients controlled substance dispensing history in the Prescription Drug Monitoring Program in compliance with the [facility] regulations before prescribing a controlled substance. PDMP checked on 03/29/2024. Pending Prescriptions: Disp Refills oxyCODONE HCl 10 MG Oral Tablet (Roxicodo*120 Ta*0 Sig: Take 1 Tablet by mouth every 6 hours as needed for Pain, Severe. Last Visit: 2022 (in office), 04/14/2023 (telemedicine) Next Visit: 04/19/2024 Date medication was last filled: 02/01/2024 Date medication is due for refill: 03/01/2024 Pharmacy: [facility] [id number] Is this request for a controlled [...] Cutoff Concentration Please approve if appropriate. Thank you, Iván Isaac, PharmD Clinical Pharmacist [facility] ([facility]) 03/29/24 8:54 AM [phone] documented in this encounter Plan of Treatment Upcoming Encounters Date Type Department Care Team (Late st Contact Info) Description 04/19/2024 3:20 PM EST Office Visit [facility] [address] [place] [address] Deshaun Pop MD [address] [place] [address] Health Maintenance Due Date Last Done Comments [...] this encounter Medical Devices Implanted Type Area Poured Pipe Maker Device Identifier Shelf Expiration Date Model / Serial / Lot System Implant Speedbridge - [id number] Implanted:Qty: 1 on 04/01/2019 by Belgica Contreras DO at OR [facility] Left: Shoulder [employer] 10/28/2020 AR-2600SBS -4 / / [id number] Biocomposite Swivelock Suture [place] 5.5x22mm Implanted:Qty: 1 on 04/01/2019 by Belgica Contreras DO at OR [facility] Left: Shoulder 03/30/2020 AR-2323BCT -2 / / [id number] Prox [employer] Implant Syst - [id number] Implanted:Qty: 1 on 04/01/2019 by Belgica Contreras DO at OR [facility] Left: Shoulder [employer] 11/29/2023 AR-2290 / / [id number] documented as of this encounter Visit Diagnoses [...] and were consensually agreed upon. Care Teams Transportation Inspector Relationship Specialty Start Date End Date Deshaun Pop MD [address] [place] [address] PCP - General Family Medicine 07/25/18 documented as of this encounter
[2024-07-12 11:38] LABS: Estimated Average Glucose 117 mg/dl; Hemoglobin A1C 5.7 % (4.5-5.6)
[2024-07-12 12:34] LABS: Appearance Urine Clear (Clear); Bacteria Urine Automated None Seen (None Seen); Bilirubin Urine Negative (Negative); Blood Urine Trace (Negative); Color Urine Yellow; Glucose Urine UA Negative (Negative); Ketones Urine Negative (Negative); Leukocyte Esterase Urine Negative (Negative); Nitrite Urine Negative (Negative); Protein Urine 1+ (Negative); RBC Urine Automated 0-2 /hpf (0-2); Specific Gravity Urine 1.039 (1.000-1.030); Urobilinogen Urine Negative (Negative); WBC Urine Automated 0-5 /hpf (0-5)
[2024-07-12 13:23] LABS: Amphetamines+Metham, Urine Neg (Neg); Barbiturates, Urine Neg (Neg); Benzodiazepine, Urine Neg (Neg); Cocaine, Urine Neg (Neg); Fentanyl, Urine Neg (Neg); MDMA (Ecstacy), Urine Neg (Neg); Marijuana, Urine Neg (Neg); Methadone, Urine Neg (Neg); Opiate, Urine Neg (Neg); Phencyclidine, Urine Neg (Neg)
--- NOTE | 2024-07-12 13:26 | Cardiology Consultation ---
Date of Consultation July 12, 2024 Assessment & Plan (1) Shock: (2) Hemorrhage of varicose veins of right lower extremity: (3) Elevated troponin: Plan 49-year-old with acute hospitalization with hypotension, hemorrhagic shock after bleeding episode. Marked metabolic derangements also observed. Initial cardiac evaluation including EKGs and echocardiogram without abnormality with hyperdynamic LV function. No pericardial effusion. Troponins mildly elevated likely on the basis of demand elevation in the setting of acidosis and hypotension. Does now appear to be clinically improving following resuscitation No arrhythmias on telemetry Will continue to follow. No additional recommendations at this time History of Present Illness Reason for Consultation: Hypotension, bradycardia Requesting Physician: Olga Lidia singhist Attending Physician: Rell Oconnell MD History of Present Illness Patient is a 49-year-old male without prior cardiac history, underlying history of hypertension. Presents now noting varicose vein in lower extremity and leg broke open in shower. Tried to stave bleeding but was unable to do so ultimately became lightheaded and passed out in the shower. Ultimately summoned ambulance response team. Found to be hypotensive with slightly inappropriate bradycardia on presentation. Received fluid and pressor support to maintain blood pressure Referred now to exclude additional cardiac concerns EKG on presentation normal Echocardiogram with normal to hyperdynamic LV function mild left hypertrophy and no valvular disease Received blood transfusion in ICU and now awake and mentating well. Still on very low-dose pressors but being weaned. No chest pain or chest discomfort Metabolic derangements noted on presentation including elevated glucoses hypothyroidism hypopneic natremia and hypokalemia. Allergies Allergy/AdvReac Type Severity Reaction Status Date / Time No Known Allergies Allergy Verified 09/17/20 08:36 Home Medications Medication Instructions Recorded Confirmed Type lisinopril 40 mg tablet 40 mg PO DAILY 07/12/24 07/12/24 History meloxicam 7.5 mg tablet 7.5 - 15 mg PO DAILY PRN Pain 07/12/24 07/12/24 History oxycodone 10 mg tablet 10 mg PO Q6H PRN Severe Pain 07/12/24 07/12/24 History (Scale Score 7-10) pregabalin 200 mg capsule 200 mg PO BID 07/12/24 07/12/24 History sertraline 100 mg tablet 200 mg PO DAILY 07/12/24 07/12/24 History zolpidem 10 mg tablet 10 mg PO HS PRN Insomnia 07/12/24 07/12/24 History Patient History Social History Smoking Status: Never smoker Second Hand Exposure: No; Do You Dip or Chew Tobacco: No; Tobacco Cessation Education Requested by Patient: No Hx Alcohol Use: Yes Alcohol type: other Hx Substance Use: No Preferred Language: Turkish Communication Ability: Effective High Pressure Firer Required: No Beliefs That Will Affect Care: None Current Living Situation: Alone Other Information That Helps Us Care for You: No Feels Safe at Home: Yes Safety Concerns: Feels Safe At This Time Assistive Devices: CPAP Review of Systems Review of Systems: All systems reviewed & are unremarkable except as noted in HPI & below Physical Exam Constitutional: + obese; no acute distress Eyes: PERRL, conjunctivae normal, anicteric sclerae ENMT: external ear and nose normal, oropharynx normal Neck: trachea midline, no thyromegaly Cardiovascular: RRR, no murmur, no edema Vessels: no JVD Extremities: no edema Gastrointestinal (Abdomen): Percussion/Palpation: + abdomen tender (Mild diffuse) and abdomen soft Skin: no rashes, warm and dry Results & Data Vital Signs (Past 12 Hours) Vital Signs Temp Pulse Pulse Resp BP BP Pulse Ox 07/12/24 12:09 102 H 26 H 07/12/24 11:00 82 23 95 07/12/24 10:36 83 18 90 07/12/24 10:30 81 19 98 07/12/24 10:29 82 23 143/56 H 94 07/12/24 10:00 36.5 C 80 23 145/58 H 96 07/12/24 09:00 36.5 C 72 22 140/57 L 99 07/12/24 08:30 36.4 C L 76 18 84/37 L 98 07/12/24 08:15 73 22 97 07/12/24 08:15 36.4 C L 75 23 99/43 L 97 07/12/24 08:00 74 24 98 07/12/24 07:56 36.5 C 74 21 149/60 H 99 07/12/24 07:09 73 23 100 07/12/24 06:51 76 20 100 07/12/24 06:21 74 17 100 07/12/24 06:20 74 17 59/41 L 100 03/14/25 06:10 72 71/41 L 99 07/12/24 06:00 74 24 68/32 L 99 07/12/24 05:55 75 23 68/32 L 99 07/12/24 05:43 26 H 61/38 L 98 07/12/24 05:29 80 85/26 L 99 07/12/24 05:26 81 15 61/31 L 99 07/12/24 05:21 78 30 H 80/30 L 100 07/12/24 05:08 83 94/31 L 97 07/12/24 04:47 83 30 H 54/37 L 95 07/12/24 04:33 76 21 97 07/12/24 04:22 88 07/12/24 04:20 88 35 H 75/47 L 94 07/12/24 04:09 79 26 H 75/54 L 95 07/12/24 04:09 36.5 C 79 27 H 74/52 L 97 O2 Del Method O2 Flow Rate 07/12/24 12:09 07/12/24 11:00 07/12/24 10:36 07/12/24 10:30 Room Air 07/12/24 10:29 07/12/24 10:00 07/12/24 09:00 2 07/12/24 08:30 07/12/24 08:15 07/12/24 08:15 2 07/12/24 08:00 07/12/24 07:56 2 07/12/24 07:09 07/12/24 06:51 07/12/24 06:21 07/12/24 06:20 07/12/24 06:10 07/12/24 06:00 07/12/24 05:55 07/12/24 05:43 07/12/24 05:29 07/12/24 05:26 07/12/24 05:21 Room Air 07/12/24 05:08 07/12/24 04:47 07/12/24 04:33 Room Air 07/12/24 04:22 07/12/24 04:20 07/12/24 04:09 Room Air 07/12/24 04:09 Room Air Laboratory Results Laboratory Results - last 24 hr 07/12/24 07/12/24 07/12/24 04:20 04:20 04:26 WBC 22.13 H RBC 4.21 L Hgb 10.9 L POC Hgb 12.2 L Hct 35.8 L POC Hct 36 L MCV 85.0 MCH 25.9 MCHC 30.4 L RDW Std Deviation 48.4 H RDW Coeff of Ronal 15.7 H Plt Count 336 MPV 11.0 Absolute Nucleated RBC 0.03 Nucleated RBC % (auto) 0.1 Neutrophils % (Manual) 51 Lymphocytes % (Manual) 36 Monocytes % (Manual) 3 Eosinophils % (Manual) 3 Metamyelocytes % (Man) 4 Myelocytes % (Man) 3 Neutrophils # (Manual) 11.29 H Total Absolute Neuts 11.29 H Lymphocytes # (Manual) 7.97 H Total Abs Lymphocytes 7.97 H Monocytes # (Manual) 0.66 H Eosinophils # (Manual) 0.66 H Metamyelocytes # (Man) 0.89 H Myelocytes # (Manual) 0.66 H VBG pH VBG pCO2 VBG pO2 VBG HCO3 VBG O2 Saturation VBG Base Excess POC Sodium 131 L Sodium TNP POC Potassium 3.6 Potassium TNP POC Chloride 99 L Chloride 96 L Carbon Dioxide 11 L POC Total CO2 12 L Anion Gap TNP POC Anion Gap 25.0 POC BUN 5 L BUN 7 Creatinine 1.41 H POC Creatinine 1.7 H Est Cr Clr Drug Dosing 104.8 eGFR 61.85 BUN/Creatinine Ratio 5.0 L Glucose 214 H POC Glucose POC Glucose (other) 209 H Estimat Average Glucose Hemoglobin A1c Osmolality Lactate Calcium 8.7 POC Ioniz Calcium Praveen 1.08 L Magnesium TNP Total Bilirubin 0.3 AST TNP ALT 45 Alkaline Phosphatase TNP Troponin I High Sens 23.4 H Cancelled Total Protein 7.1 Albumin TNP Globulin TNP Albumin/Globulin Ratio TNP Procalcitonin TSH 9.314 H Free T4 0.58 L Urine Color Urine Appearance Urine pH Ur Specific [place] Urine Protein Urine Glucose (UA) Urine Ketones Urine Blood Urine Nitrite Urine Bilirubin Urine Urobilinogen Ur Leukocyte Esterase Urine WBC (Auto) Urine RBC (Auto) U Hyaline Cast (Auto) U Epithel Cells (Auto) Urine Bacteria (Auto) Urine Osmolality Nasal Screen MRSA (PCR) Salicylates Urine Opiates Screen Ur Methadone, Qual Urine Fentanyl Screen Acetaminophen Urine Barbiturates Ur Phencyclidine (PCP) U Amphetamin/Meth Scrn MDMA (Ecstasy) Screen U Benzodiazepines Scrn Ur Cocaine Metabolite U Marijuana (THC) Screen Ethyl Alcohol mg/dL 167.9 H Blood Type Blood Type Recheck Antibody Screen Crossmatch 07/12/24 07/12/24 07/12/24 05:02 06:10 06:12 WBC RBC Hgb 9.2 L POC Hgb Hct 29.0 L POC Hct MCV MCH MCHC RDW Std Deviation RDW Coeff of Ronal Plt Count MPV Absolute Nucleated RBC Nucleated RBC % (auto) Neutrophils % (Manual) Lymphocytes % (Manual) Monocytes % (Manual) Eosinophils % (Manual) Metamyelocytes % (Man) Myelocytes % (Man) Neutrophils # (Manual) Total Absolute Neuts Lymphocytes # (Manual) Total Abs Lymphocytes Monocytes # (Manual) Eosinophils # (Manual) Metamyelocytes # (Man) Myelocytes # (Manual) VBG pH VBG pCO2 VBG pO2 VBG HCO3 VBG O2 Saturation VBG Base Excess POC Sodium Sodium 131 L POC Potassium Potassium 3.4 L POC Chloride Chloride Carbon Dioxide POC Total CO2 Anion Gap POC Anion Gap POC BUN BUN Creatinine POC Creatinine Est Cr Clr Drug Dosing eGFR BUN/Creatinine Ratio Glucose POC Glucose POC Glucose (other) Estimat Average Glucose 117 Hemoglobin A1c 5.7 H Osmolality 309 H Lactate 8.1 H* Calcium POC Ioniz Calcium [place]ve[place] Magnesium 2.6 H Total Bilirubin AST 47 H ALT Alkaline Phosphatase 111 H Troponin I High Sens 86.1 H* D Total Protein Albumin 3.4 Globulin Albumin/Globulin Ratio Procalcitonin 0.22 TSH Free T4 Urine Color Urine Appearance Urine pH Ur Specific [place] Urine Protein Urine Glucose (UA) Urine Ketones Urine Blood Urine Nitrite Urine Bilirubin Urine Urobilinogen Ur Leukocyte Esterase Urine WBC (Auto) Urine RBC (Auto) U Hyaline Cast (Auto) U Epithel Cells (Auto) Urine Bacteria (Auto) Urine Osmolality Nasal Screen MRSA (PCR) Salicylates Urine Opiates Screen Ur Methadone, Qual Urine Fentanyl Screen Acetaminophen Urine Barbiturates Ur Phencyclidine (PCP) U Amphetamin/Meth Scrn MDMA (Ecstasy) Screen U Benzodiazepines Scrn Ur Cocaine Metabolite U Marijuana (THC) Screen Ethyl Alcohol mg/dL Blood Type O Positive Blood Type Recheck O Positive Antibody Screen NEGATIVE Crossmatch See Detail 07/12/24 07/12/24 07/12/24 07:01 08:10 08:25 WBC RBC Hgb POC Hgb Hct POC Hct MCV MCH MCHC RDW Std Deviation RDW Coeff of Ronal Plt Count MPV Absolute Nucleated RBC Nucleated RBC % (auto) Neutrophils % (Manual) Lymphocytes % (Manual) Monocytes % (Manual) Eosinophils % (Manual) Metamyelocytes % (Man) Myelocytes % (Man) Neutrophils # (Manual) Total Absolute Neuts Lymphocytes # (Manual) Total Abs Lymphocytes Monocytes # (Manual) Eosinophils # (Manual) Metamyelocytes # (Man) Myelocytes # (Manual) VBG pH 7.27 L VBG pCO2 40 VBG pO2 28 VBG HCO3 18 VBG O2 Saturation < 60.0 VBG Base Excess -8.0 POC Sodium Sodium 132 L POC Potassium Potassium 4.2 D POC Chloride Chloride 103 Carbon Dioxide 19 L POC Total CO2 Anion Gap 10 POC Anion Gap POC BUN BUN 8 Creatinine 1.44 H POC Creatinine Est Cr Clr Drug Dosing 102.6 eGFR 60.31 BUN/Creatinine Ratio 5.6 L Glucose 132 H POC Glucose POC Glucose (other) Estimat Average Glucose Hemoglobin A1c Osmolality Lactate 3.7 H* Calcium 7.9 L POC Ioniz Calcium [place]ve[place] Magnesium Total Bilirubin AST ALT Alkaline Phosphatase Troponin I High Sens Total Protein Albumin Globulin Albumin/Globulin Ratio Procalcitonin TSH Free T4 Urine Color Urine Appearance Urine pH Ur Specific [place] Urine Protein Urine Glucose (UA) Urine Ketones Urine Blood Urine Nitrite Urine Bilirubin Urine Urobilinogen Ur Leukocyte Esterase Urine WBC (Auto) Urine RBC (Auto) U Hyaline Cast (Auto) U Epithel Cells (Auto) Urine Bacteria (Auto) Urine Osmolality Nasal Screen MRSA (PCR) Salicylates < 3.0 L Urine Opiates Screen Ur Methadone, Qual Urine Fentanyl Screen Acetaminophen < 3 L Urine Barbiturates Ur Phencyclidine (PCP) U Amphetamin/Meth Scrn MDMA (Ecstasy) Screen U Benzodiazepines Scrn Ur Cocaine Metabolite U Marijuana (THC) Screen Ethyl Alcohol mg/dL Blood Type Blood Type Recheck Antibody Screen Crossmatch 07/12/24 07/12/24 07/12/24 12:12 12:37 13:14 WBC Pending RBC Pending Hgb Pending POC Hgb Hct Pending POC Hct MCV Pending MCH Pending MCHC Pending RDW Std Deviation RDW Coeff of Ronal Plt Count Pending MPV Absolute Nucleated RBC Nucleated RBC % (auto) Neutrophils % (Manual) Lymphocytes % (Manual) Monocytes % (Manual) Eosinophils % (Manual) Metamyelocytes % (Man) Myelocytes % (Man) Neutrophils # (Manual) Total Absolute Neuts Lymphocytes # (Manual) Total Abs Lymphocytes Monocytes # (Manual) Eosinophils # (Manual) Metamyelocytes # (Man) Myelocytes # (Manual) VBG pH VBG pCO2 VBG pO2 VBG HCO3 VBG O2 Saturation VBG Base Excess POC Sodium Sodium Pending POC Potassium Potassium Pending POC Chloride Chloride Pending Carbon Dioxide Pending POC Total CO2 Anion Gap Pending POC Anion Gap POC BUN BUN Pending Creatinine Pending POC Creatinine Est Cr Clr Drug Dosing Pending eGFR Pending BUN/Creatinine Ratio Pending Glucose Pending POC Glucose 146 H POC Glucose (other) Estimat Average Glucose Hemoglobin A1c Osmolality Lactate 1.5 Calcium Pending POC Ioniz Calcium Praveen Magnesium Pending Total Bilirubin AST ALT Alkaline Phosphatase Troponin I High Sens Pending Total Protein Albumin Globulin Albumin/Globulin Ratio Procalcitonin TSH Free T4 Urine Color Yellow Urine Appearance Clear Urine pH 6.0 Ur Specific [place] 1.039 H Urine Protein 1+ H Urine Glucose (UA) Negative Urine Ketones Negative Urine Blood Trace H Urine Nitrite Negative Urine Bilirubin Negative Urine Urobilinogen Negative Ur Leukocyte Esterase Negative Urine WBC (Auto) 0-5 Urine RBC (Auto) 0-2 U Hyaline Cast (Auto) 3-5 H U Epithel Cells (Auto) 3-5 H Urine Bacteria (Auto) None Seen Urine Osmolality 311 L Nasal Screen MRSA (PCR) Salicylates Urine Opiates Screen Neg Ur Methadone, Qual Neg Urine Fentanyl Screen Neg Acetaminophen Urine Barbiturates Neg Ur Phencyclidine (PCP) Neg U Amphetamin/Meth Scrn Neg MDMA (Ecstasy) Screen Neg U Benzodiazepines Scrn Neg Ur Cocaine Metabolite Neg U Marijuana (THC) Screen Neg Ethyl Alcohol mg/dL Blood Type Blood Type Recheck Antibody Screen Crossmatch 07/12/24 Unknown WBC RBC Hgb POC Hgb Hct POC Hct MCV MCH MCHC RDW Std Deviation RDW Coeff of Ronal Plt Count MPV Absolute Nucleated RBC Nucleated RBC % (auto) Neutrophils % (Manual) Lymphocytes % (Manual) Monocytes % (Manual) Eosinophils % (Manual) Metamyelocytes % (Man) Myelocytes % (Man) Neutrophils # (Manual) Total Absolute Neuts Lymphocytes # (Manual) Total Abs Lymphocytes Monocytes # (Manual) Eosinophils # (Manual) Metamyelocytes # (Man) Myelocytes # (Manual) VBG pH VBG pCO2 VBG pO2 VBG HCO3 VBG O2 Saturation VBG Base Excess POC Sodium Sodium POC Potassium Potassium POC Chloride Chloride Carbon Dioxide POC Total CO2 Anion Gap POC Anion Gap POC BUN BUN Creatinine POC Creatinine Est Cr Clr Drug Dosing eGFR BUN/Creatinine Ratio Glucose POC Glucose POC Glucose (other) Estimat Average Glucose Hemoglobin A1c Osmolality Lactate Calcium POC Ioniz Calcium Prave[place] Magnesium Total Bilirubin AST ALT Alkaline Phosphatase Troponin I High Sens Total Protein Albumin Globulin Albumin/Globulin Ratio Procalcitonin TSH Free T4 Urine Color Urine Appearance Urine pH Ur Specific [place] Urine Protein Urine Glucose (UA) Urine Ketones Urine Blood Urine Nitrite Urine Bilirubin Urine Urobilinogen Ur Leukocyte Esterase Urine WBC (Auto) Urine RBC (Auto) U Hyaline Cast (Auto) U Epithel Cells (Auto) Urine Bacteria (Auto) Urine Osmolality Nasal Screen MRSA (PCR) Negative Salicylates Urine Opiates Screen Ur Methadone, Qual Urine Fentanyl Screen Acetaminophen Urine Barbiturates Ur Phencyclidine (PCP) U Amphetamin/Meth Scrn MDMA (Ecstasy) Screen U Benzodiazepines Scrn Ur Cocaine Metabolite U Marijuana (THC) Screen Ethyl Alcohol mg/dL Blood Type Blood Type Recheck Antibody Screen Crossmatch
[2024-07-12 13:38] LABS: Hemoglobin 9.7 g/dl (14.0-18.0); Mean Corpuscular Hemoglobin 27.1 pg (25.0-34.0); Mean Corpuscular Hgb Conc 33.4 g/dL (32.0-36.0); Mean Platelet Volume 10.6 fL (9.4-12.4); Platelet Count 199 K/uL (130-400); RDW Coefficient of Variation 15.7 % (11.5-14.5); RDW Standard Deviation 46.8 fL (36.4-46.3); Red Blood Count 3.58 M/uL (4.70-6.10); White Blood Count 14.83 K/ul (4.8-10.8)
--- NOTE | 2024-07-12 13:40 | Pharmacy Report ---
Pharmacy Glycemic Short Note 2 - Date of Service July 12, 2024 - Glycemic Short BSG Results (Last 24 hours): 07/12/24 07/12/24 07/12/24 04:20 04:26 08:25 Glucose 214 H 132 H POC Glucose POC Glucose (other) 209 H 07/12/24 12:37 Glucose POC Glucose 146 H POC Glucose (other) OUTPATIENT ANTIDIABETIC REGIMEN: * None HbA1c: * 5.7% (07/12/24) ASSESSMENT: * 49 yo M admitted on 07/12/24 secondary to bleeding/hypotension. Pharmacy has been consulted to assist with inpatient glycemic management. Patient is borderline pre-diabetic based on A1c above. * BSGs upon arrival were > 200 mg/dL but improved with fluid resuscitation. 146 mg/dL at lunch. Still NPO at this time so will continue to hold basal. * Novolog will be ordered q4h. Loosened parameters at lunchtime. Patient remains on Levophed. PLAN FOR INPATIENT GLYCEMIC CONTROL: * Basal insulin * None * Bolus insulin * NovoLog per scale ACHS or Q6hrs while NPO * Goal Range: Low 110 mg/dL - High 140 mg/dL * Correction Factor: 35 mg/dL/unit * Nutritional / Prandial insulin per carb ratio of 1 unit per 12 grams CHO consumed
[2024-07-12 13:43] LABS: BUN Creatinine Ratio 7.4 (10-20); Potassium 3.9 mmol/L (3.5-5.1)
[2024-07-12 14:02] LABS: Basophils # (auto) 0.08 K/uL (0.00-0.20); Basophils % (auto) 0.5 %; Eosinophils # (auto) 0.05 K/uL (0.00-0.50); Eosinophils % (auto) 0.3 %; Immature Granulocytes # (auto) 0.78 K/uL (0.01-0.20); Immature Granulocytes % (auto) 5.3 %; Lymphocytes # (auto) 1.35 K/uL (1.20-3.40); Lymphocytes % (auto) 9.1 %; Monocytes # (auto) 0.88 K/uL (0.11-0.59); Monocytes % (auto) 5.9 %; Neutrophils # (auto) 11.69 K/uL (1.40-6.50); Neutrophils % (auto) 78.9 %; Polychromasia 1+
[2024-07-12] MEDS ORDERED: ZOLPIDEM TARTRATE 5 MG TAB PO PRN (15:04)
--- NOTE | 2024-07-12 19:18 | Electrocardiogram Report ---
Test Reason : Blood Pressure : */* mmHG Vent. Rate : 82 BPM Atrial Rate : 82 BPM P-R Int : 156 ms QRS Dur : 78 ms QT Int : 400 ms P-R-T Axes : 28 35 59 degrees QTcB Int : 467 ms Normal sinus rhythm Normal ECG When compared with ECG of 04-Nov-2020 12:43, Premature ventricular complexes are no longer Present Confirmed by Wicho Mcallister ([id number]) on 07/12/2024 7:17:57 PM Referred By: REFERRED SELF Confirmed By: Wicho Mcallister
[2024-07-12] MEDS: oxyCODONE HCL IR 5 MG TAB (IMMEDIATE RELEASE) PO PRN (20:17)
[2024-07-12] MEDS: LORazepam 1 MG TAB PO PRN (20:49)
[2024-07-12] MEDS: PREGABALIN 100 MG CAP PO SCH (21:31)
[2024-07-13] MEDS: INSULIN ASPART PER UNIT CHARGE SC SCH (08:23)
[2024-07-13] MEDS: FOLIC ACID 1 MG in SYRINGE 9.8 ML IV SCH (08:23)
[2024-07-13 08:25] VITALS: BP 166/88; RESP 19; O2SAT 97
[2024-07-13 08:26] VITALS: TEMP 98.4
[2024-07-13 08:30] LABS: Calcium 8.5 mg/dl (8.6-10.3); Potassium 4.5 mmol/L (3.5-5.1)
[2024-07-13] MEDS: lisinopril 40 MG TAB PO SCH (08:32)
[2024-07-13] MEDS: SERTRALINE HCL 100 MG TABLET PO SCH (08:32)
[2024-07-13 08:59] LABS: Hematocrit (blood only) 28.5 % (42.0-52.0); Hemoglobin 9.6 g/dl (14.0-18.0); Mean Corpuscular Hemoglobin 27.1 pg (25.0-34.0); Mean Corpuscular Hgb Conc 33.7 g/dL (32.0-36.0); Mean Corpuscular Volume 80.5 fL (80.0-100.0); Mean Platelet Volume 11.3 fL (9.4-12.4); Platelet Count 180 K/uL (130-400); RDW Coefficient of Variation 15.7 % (11.5-14.5); RDW Standard Deviation 45.8 fL (36.4-46.3); Red Blood Count 3.54 M/uL (4.70-6.10); White Blood Count 14.33 K/ul (4.8-10.8)
--- NOTE | 2024-07-13 09:14 | Cardiology Progress Note ---
Date of Service July 13, 2024 Assessment & Plan (1) Shock: (2) Hemorrhage of varicose veins of right lower extremity: (3) Elevated troponin: Plan 49-year-old with acute hospitalization with hypotension, hemorrhagic shock after bleeding episode. Marked metabolic derangements also observed. Initial cardiac evaluation including EKGs and echocardiogram without abnormality with hyperdynamic LV function. No pericardial effusion. Troponins mildly elevated likely on the basis of demand elevation in the setting of acidosis and hypotension. Does now appear to be clinically improving following resuscitation No arrhythmias on telemetry Will continue to follow. No additional recommendations at this time 07/13/2024 No further cardiac concerns. Blood pressure now trending high would resume lisinopril on discharge. Needs close medical clinical follow-up for metabolic derangements thyroid, glucose. Cardiology will sign off Admission and Anticipated Discharge Date Admission Date: July 12, 2024 Subjective Patient seen and examined, chart, telemetry reviewed. No cardiac complaints. No bradycardia arrhythmias. Telemetry sinus and sinus tachycardia only. Oxygenating well on room air. Blood pressure trending slightly higher. No hypotension. No further bleeding. Chronic back pain remains an issue Physical Exam Constitutional: + obese; no acute distress Eyes: PERRL, conjunctivae normal, anicteric sclerae ENMT: external ear and nose normal, oropharynx normal Neck: trachea midline, no thyromegaly Cardiovascular: RRR, no murmur, no edema Vessels: no JVD Extremities: no edema Gastrointestinal (Abdomen): Percussion/Palpation: + abdomen tender (Mild diffuse) and abdomen soft Skin: no rashes, warm and dry Results & Data Vital Signs (Past 12 Hours) Vital Signs Temp Pulse Resp BP Pulse Ox O2 Del Method 07/13/24 08:14 166/88 H 07/13/24 08:06 88 19 97 Room Air 07/13/24 08:00 36.9 C 07/13/24 03:06 90 22 98 07/13/24 00:03 88 23 179/94 H 07/12/24 23:18 87 17 07/12/24 23:18 89 20 99 07/12/24 22:00 88 25 H 07/12/24 21:24 90 26 H Laboratory Results Laboratory Results - last 24 hr 07/12/24 07/12/24 07/12/24 05:02 06:10 12:12 WBC RBC Hgb Hct MCV MCH MCHC RDW Std Deviation RDW Coeff of Ronal Plt Count MPV Immature Gran % (Auto) Neut % (Auto) Lymph % (Auto) [place] % (Auto) Eos % (Auto) Baso % (Auto) Neut # (Auto) Lymph # (Auto) [place] # (Auto) Eos # (Auto) Baso # (Auto) Immature Gran # (Auto) Polychromasia Sodium Potassium Chloride Carbon Dioxide Anion Gap BUN Creatinine Est Cr Clr Drug Dosing eGFR BUN/Creatinine Ratio Glucose POC Glucose Estimat Average Glucose 117 Hemoglobin A1c 5.7 H Lactate Calcium Magnesium Troponin I High Sens Urine Color Yellow Urine Appearance Clear Urine pH 6.0 Ur Specific Hunter 1.039 H Urine Protein 1+ H Urine Glucose (UA) Negative Urine Ketones Negative Urine Blood Trace H Urine Nitrite Negative Urine Bilirubin Negative Urine Urobilinogen Negative Ur Leukocyte Esterase Negative Urine WBC (Auto) 0-5 Urine RBC (Auto) 0-2 U Hyaline Cast (Auto) 3-5 H U Epithel Cells (Auto) 3-5 H Urine Bacteria (Auto) None Seen Urine Osmolality 311 L Nasal Screen MRSA (PCR) Urine Opiates Screen Neg Ur Methadone, Qual Neg Urine Fentanyl Screen Neg Urine Barbiturates Neg Ur Phencyclidine (PCP) Neg U Amphetamin/Meth Scrn Neg MDMA (Ecstasy) Screen Neg U Benzodiazepines Scrn Neg Ur Cocaine Metabolite Neg U Marijuana (THC) Screen Neg Crossmatch See Detail 07/12/24 07/12/24 07/12/24 12:37 13:14 17:12 WBC 14.83 H RBC 3.58 L Hgb 9.7 L Hct 29.0 L MCV 81.0 MCH 27.1 MCHC 33.4 RDW Std Deviation 46.8 H RDW Coeff of Ronal 15.7 H Plt Count 199 MPV 10.6 Immature Gran % (Auto) 5.3 Neut % (Auto) 78.9 Lymph % (Auto) 9.1 [place] % (Auto) 5.9 Eos % (Auto) 0.3 Baso % (Auto) 0.5 Neut # (Auto) 11.69 H Lymph # (Auto) 1.35 [place] # (Auto) 0.88 H Eos # (Auto) 0.05 Baso # (Auto) 0.08 Immature Gran # (Auto) 0.78 H Polychromasia 1+ Sodium 131 L Potassium 3.9 Chloride 102 Carbon Dioxide 22 Anion Gap 7 BUN 9 Creatinine 1.22 Est Cr Clr Drug Dosing 120.0 eGFR 73.59 BUN/Creatinine Ratio 7.4 L Glucose 144 H POC Glucose 146 H 113 H Estimat Average Glucose Hemoglobin A1c Lactate 1.5 Calcium 8.0 L Magnesium 2.0 Troponin I High Sens 92.0 H* Urine Color Urine Appearance Urine pH Ur Specific Hunter Urine Protein Urine Glucose (UA) Urine Ketones Urine Blood Urine Nitrite Urine Bilirubin Urine Urobilinogen Ur Leukocyte Esterase Urine WBC (Auto) Urine RBC (Auto) U Hyaline Cast (Auto) U Epithel Cells (Auto) Urine Bacteria (Auto) Urine Osmolality Nasal Screen MRSA (PCR) Urine Opiates Screen Ur Methadone, Qual Urine Fentanyl Screen Urine Barbiturates Ur Phencyclidine (PCP) U Amphetamin/Meth Scrn MDMA (Ecstasy) Screen U Benzodiazepines Scrn Ur Cocaine Metabolite U Marijuana (THC) Screen Crossmatch 07/12/24 07/12/24 07/12/24 19:45 20:01 Unknown WBC RBC Hgb Hct MCV MCH MCHC RDW Std Deviation RDW Coeff of Ronal Plt Count MPV Immature Gran % (Auto) Neut % (Auto) Lymph % (Auto) [place] % (Auto) Eos % (Auto) Baso % (Auto) Neut # (Auto) Lymph # (Auto) [place] # (Auto) Eos # (Auto) Baso # (Auto) Immature Gran # (Auto) Polychromasia Sodium Potassium Chloride Carbon Dioxide Anion Gap BUN Creatinine Est Cr Clr Drug Dosing eGFR BUN/Creatinine Ratio Glucose POC Glucose 111 H Estimat Average Glucose Hemoglobin A1c Lactate Calcium Magnesium Troponin I High Sens 39.8 H D Urine Color Urine Appearance Urine pH Ur Specific Hunter Urine Protein Urine Glucose (UA) Urine Ketones Urine Blood Urine Nitrite Urine Bilirubin Urine Urobilinogen Ur Leukocyte Esterase Urine WBC (Auto) Urine RBC (Auto) U Hyaline Cast (Auto) U Epithel Cells (Auto) Urine Bacteria (Auto) Urine Osmolality Nasal Screen MRSA (PCR) Negative Urine Opiates Screen Ur Methadone, Qual Urine Fentanyl Screen Urine Barbiturates Ur Phencyclidine (PCP) U Amphetamin/Meth Scrn MDMA (Ecstasy) Screen U Benzodiazepines Scrn Ur Cocaine Metabolite U Marijuana (THC) Screen Crossmatch 07/13/24 07/13/24 07/13/24 00:28 04:27 08:01 WBC RBC Hgb Hct MCV MCH MCHC RDW Std Deviation RDW Coeff of Ronal Plt Count MPV Immature Gran % (Auto) Neut % (Auto) Lymph % (Auto) [place] % (Auto) Eos % (Auto) Baso % (Auto) Neut # (Auto) Lymph # (Auto) [place] # (Auto) Eos # (Auto) Baso # (Auto) Immature Gran # (Auto) Polychromasia Sodium 132 L Potassium 4.5 Chloride 101 Carbon Dioxide 27 Anion Gap 4 BUN 7 Creatinine 1.00 Est Cr Clr Drug Dosing 146.0 eGFR 93.42 BUN/Creatinine Ratio 7.0 L Glucose 120 H POC Glucose 105 H 114 H Estimat Average Glucose Hemoglobin A1c Lactate Calcium 8.5 L Magnesium Troponin I High Sens Urine Color Urine Appearance Urine pH Ur Specific Hunter Urine Protein Urine Glucose (UA) Urine Ketones Urine Blood Urine Nitrite Urine Bilirubin Urine Urobilinogen Ur Leukocyte Esterase Urine WBC (Auto) Urine RBC (Auto) U Hyaline Cast (Auto) U Epithel Cells (Auto) Urine Bacteria (Auto) Urine Osmolality Nasal Screen MRSA (PCR) Urine Opiates Screen Ur Methadone, Qual Urine Fentanyl Screen Urine Barbiturates Ur Phencyclidine (PCP) U Amphetamin/Meth Scrn MDMA (Ecstasy) Screen U Benzodiazepines Scrn Ur Cocaine Metabolite U Marijuana (THC) Screen Crossmatch 07/13/24 08:37 WBC 14.33 H RBC 3.54 L Hgb 9.6 L Hct 28.5 L MCV 80.5 MCH 27.1 MCHC 33.7 RDW Std Deviation 45.8 RDW Coeff of Ronal 15.7 H Plt Count 180 MPV 11.3 Immature Gran % (Auto) Neut % (Auto) Lymph % (Auto) [place] % (Auto) Eos % (Auto) Baso % (Auto) Neut # (Auto) Lymph # (Auto) [place] # (Auto) Eos # (Auto) Baso # (Auto) Immature Gran # (Auto) Polychromasia Sodium Potassium Chloride Carbon Dioxide Anion Gap BUN Creatinine Est Cr Clr Drug Dosing eGFR BUN/Creatinine Ratio Glucose POC Glucose Estimat Average Glucose Hemoglobin A1c Lactate Calcium Magnesium Troponin I High Sens Urine Color Urine Appearance Urine pH Ur Specific [place] Urine Protein Urine Glucose (UA) Urine Ketones Urine Blood Urine Nitrite Urine Bilirubin Urine Urobilinogen Ur Leukocyte Esterase Urine WBC (Auto) Urine RBC (Auto) U Hyaline Cast (Auto) U Epithel Cells (Auto) Urine Bacteria (Auto) Urine Osmolality Nasal Screen MRSA (PCR) Urine Opiates Screen Ur Methadone, Qual Urine Fentanyl Screen Urine Barbiturates Ur Phencyclidine (PCP) U Amphetamin/Meth Scrn MDMA (Ecstasy) Screen U Benzodiazepines Scrn Ur Cocaine Metabolite U Marijuana (THC) Screen Crossmatch
--- NOTE | 2024-07-13 10:01 | Discharge Summary ---
Date of Service July 13, 2024 Admission HPI Per Admitting Provider 49-year-old male with past medical history significant for prediabetes, hypertension, obesity, obstructive sleep apnea on CPAP, lumbar degenerative disc disease, lumbar spinal stenosis ,nontraumatic incomplete tear of left rotator cuff, insomnia, generalized anxiety disorder comes because of syncope and bleeding from the right lower leg varicose vein. Patient says he was in the shower and the varicose veins of right distal leg popped open. Patient thought the bleeding will stop and waited for some time but did not stop. Patient says he passed out on the floor and did not know how long he passed out. Patient when he woke up called 911 and did not have enough strength to get up and open the door. First responders seem to have to force open into the house.EMS noted significant blood loss at the scene. Patient was diaphoretic. Patient was brought to the ER and control of bleeding was easily achieved with lidocaine with epinephrine. Pressure was applied with Coban and then changed to kenneth wrap as per ER. Hemorrhage seems to be stopped. But patient was hypotensive. Heart rates were okay. Initial hemoglobin is 10.9. Outpatient labs shows hemoglobin around 15. Patient says he was doing okay until this happened. No recent fevers. Denies cough. Has some exertional shortness of breath attributed to back pain. No recent nausea/ vomiting. Appetite is okay. No diarrhea. No blood in the stools. Was micturating okay. In the ER even after 3 L of fluid bolus his blood pressure was still low. ICU was contacted. Patient was started on Levophed drip. A-line was placed. Blood pressure improved with Levophed drip. White count came back 22.13. Repeat hemoglobin was 9.2. VBG came pH of 7.27. Sodium 131. Potassium 3.4. CO2 11. Creatinine 1.4. Lactate 8.1. Serum Osmolality 309. Glucose 214. Magnesium 2.6. Ionized calcium 1.08. Initial troponin 23. Repeat troponin 86. TSH is 9.3 and free T4 0.5. Ethyl alcohol 167.Two Amp of bicarb and calcium gluconate was given in the ER by critical care. Empiric antibiotics Dapto and Zosyn were started. Patient somewhat drowsy but answering appropriately and able to give history. Past medical history. As mentioned above Past surgical history. Left shoulder arthroscopy. Left foot surgery. Tonsillectomy and adenoidectomy. Right repair of biceps tendon rupture. Right shoulder arthroscopy. Vasectomy. Social history. . No smoking. Alcohol 4.2 standard drinks of alcohol per week as per epic. Family history. Maternal grandmother had breast cancer. Paternal grandmother had stroke. Paternal grandfather had diabetes. Hepatitis from transfusion. Hypertension. Maternal grandfather had hypertension. CABG. Father had dyslipidemia. Hypertension. Obesity. Mother had dyslipidemia. Admission Exam Per Admitting Provider General- Drowsy Head- atraumatic Eyes- PERRL. ENT- oropharynx clear Neck- supple, no JVD. Lungs- clear to auscultation no wheezing or crackles Heart- regular rate and rhythm; no murmur, no gallop. Abdomen- normal bowel sounds, soft, nontender, no distension Extremities- no pretibial edema, kenneth wrap seen distal right leg and no obvious ongoing bleeding seen Neuro- Drowsy but arousable.PERRL, no facial palsy; no dysarthria; moves extremities Principal Diagnosis Hemorrhagic shock Metabolic acidosis, lactic acidosis Discharge Exam General- obese M in NAD, pleasant, conversing easily Head- atraumatic Eyes- PERRL. Neck- supple, no JVD. Lungs- clear to auscultation no wheezing or crackles Heart- regular rate and rhythm; no murmur Abdomen- normal bowel sounds, soft, nontender, no distension Extremities- no pretibial edema, + kenneth wrap seen distal right leg Neuro- Awake, alert, answers appropriately, PERRL, no facial palsy; no dysarthria; moves extremities Discharge Data Allergies Allergy/AdvReac Type Severity Reaction Status Date / Time No Known Allergies Allergy Verified 09/17/20 08:36 Consultations 07/12/24 05:33 ED Decision to Admit Stat 07/12/24 07:51 Consult Nurse Recruiter Routine 07/12/24 08:00 Consult Cardiology Routine Ordered Studies 07/12/24 04:34 CT head/brain wo con Stat FINDINGS: Brain Parenchyma: Normal attenuation of the cerebral hemispheres, cerebellum, and brainstem. No evidence of acute infarct, hemorrhage, or mass effect. No abnormal areas of hypo- or hyperattenuation. Mild age-appropriate brain Involutional changes. Ventricular System: Ventricles are normal in size and configuration. No evidence of hydrocephalus or ventricular enlargement. Subarachnoid Spaces: Normal sulci and cisterns. No evidence of subarachnoid hemorrhage or extra-axial fluid collections. Cerebellum and Brainstem: Normal size and signal. No masses, lesions, or areas of abnormal signal. Prominent retrocerebellar CSF density seen. Orbits: Normal appearance of the globes, optic nerves, and extraocular muscles. No evidence of orbital masses or abnormal signal. Sinuses: Clear paranasal sinuses. No evidence of sinusitis or mucosal thickening. Mastoid Air Cells: Clear mastoid air cells. No evidence of mastoiditis. Skull: Normal skull morphology. IMPRESSION: 1. No acute intracranial abnormalities. 2. No intra or extra axial hematoma. 3. Early ischemic stroke can be not visualized on CT, if clinically suspected MRI with diffusion is advised. 07/12/24 06:33 CT angio abd pelvis wo/w con Stat FINDINGS: Aorta: The abdominal aorta is normal in caliber. No evidence of aneurysm, dissection, or significant atherosclerotic changes. Aortic bifurcation is unremarkable. Renal Arteries: Renal arteries are normal in size and opacification. No evidence of stenosis or occlusion. Symmetric perfusion of both kidneys. Mesenteric Arteries: Superior mesenteric artery (SMA) and inferior mesenteric artery (LOLI) are normal in caliber and opacification. No evidence of stenosis or occlusion. Celiac Artery: Celiac artery is normal in caliber and opacification. No evidence of stenosis or occlusion. Iliac Arteries: Common, internal, and external iliac arteries are normal in caliber and opacification. No evidence of stenosis, aneurysm, or occlusion. Venous Structures: Inferior vena cava (IVC) and major venous structures are normal in caliber and opacification. No evidence of thrombus or obstruction. Liver: Enlarged size (LS=25cm) with diffuse hypodense texture, suggesting marked hepatic steatosis. Homogeneous enhancement post-contrast. A rounded enahncing left hepatic lobe segment IV b focal lesion, could be a flash filling hemangioma. Gallbladder and Biliary System: Normal appearance of the gallbladder and biliary ducts. No stones or dilatation. Pancreas: Normal size and contour. Homogeneous enhancement post-contrast. No masses or cystic lesions. Spleen: Normal size and appearance. Homogeneous enhancement post-contrast. Adrenal Glands: Normal size and morphology bilaterally. No adrenal masses. Kidneys and Ureters: Normal size, shape, and position of both kidneys. Homogeneous enhancement post-contrast. No renal stones, masses, or hydronephrosis. Ureters are unremarkable. Bladder: Collapsed. No intraluminal masses. Normal enhancement post-contrast. Pelvic Structures: Unremarkable pelvic organs. Bowel: Normal appearance of the visualized bowel loops. No evidence of obstruction, wall thickening, or abnormal dilatation. Lymph Nodes: No pathologically enlarged lymph nodes in the abdomen or pelvis. Peritoneum: No free fluid or free air in the abdomen. Bones: Lumbar spondylosis, L4 and small lucent rounded area, could be hemangiomas. Normal alignment and bone density. Soft Tissues: An elliptical shaped anterior abdominal wall collection measuring 10 cm along maximum length and 13 mm along maximum thickness, needs clinical correlation Divercation of the recti, with diastasis of the linea alba. IMPRESSION: 1. Normal CT angiography of the abdomen and pelvis. 2. No evidence of significant vascular abnormalities. 3. An elliptical shaped anterior abdominal wall fluid collection measuring 10 cm along maximum length and 13 mm along maximum thickness, needs clinical correlation. 4. Marked hepatic steatosis and hepatomegaly. A rounded enhancing left hepatic lobe segment IV b focal lesion, could be a flash filling hemangioma. CT angio chest w con Stat FINDINGS: Aorta: The thoracic aorta is normal in caliber. No evidence of aneurysm, dissection, or significant atherosclerotic changes. Aortic arch and descending thoracic aorta are unremarkable. Pulmonary Arteries: Suboptimal opacification of the pulmonary arteries was noted. Pulmonary arteries are normal in size and opacification. No evidence of pulmonary embolism. No stenosis or filling defects. Superior Vena Cava (SVC) and Inferior Vena Cava (IVC): Normal opacification and caliber. No evidence of thrombus or obstruction. Coronary Arteries: Coronary arteries are well-opacified. No significant stenosis or atherosclerotic changes. Mediastinum: No mediastinal mass or lymphadenopathy. Normal appearance of the thymus. Heart: Normal size and morphology of the heart. No pericardial effusion. Lungs: Bilateral posterior subpleural fine reticulations are likely gravitation. Lungs are clear with no evidence of consolidation, nodules, or masses. No pleural effusion or thickening. Bones: No fractures or lytic/sclerotic lesions of the visualized bony structures. Normal alignment and bone density. Soft Tissues: Normal appearance of the visualized soft tissues. No abnormal masses or fluid collections. IMPRESSION: 1. Unremarkable CT angiography of the chest. 2. No evidence of significant vascular abnormalities. Hospital Course (1) Syncope and collapse: 49-year-old male with past medical history significant for prediabetes, hypertension, obesity, obstructive sleep apnea on CPAP, lumbar degenerative disc disease, lumbar spinal stenosis ,nontraumatic incomplete tear of left rotator cuff, insomnia, generalized anxiety disorder comes because of syncope and bleeding from the right lower leg varicose vein. Patient says he was in the shower and the varicose veins of right distal leg popped open. Patient thought the bleeding will stop and waited for some time but did not stop. Patient says he passed out on the floor and did not know how long he passed out. Patient when he woke up called 911 and did not have enough strength to get up and open the door. First responders seem to have to force open into the house.EMS noted significant blood loss at the scene. Patient was diaphoretic. Patient was brought to the ER and control of bleeding was easily achieved with lidocaine with epinephrine. Pressure was applied with Coban and then changed to kenneth wrap as per ER. Hemorrhage seems to be stopped. But patient was hypotensive. Heart rates were okay. Initial hemoglobin is 10.9. Outpatient labs shows hemoglobin around 15. Patient says he was doing okay until this happened. No recent fevers. Denies cough. Has some exertional shortness of breath attributed to back pain. No recent nausea/ vomiting. Appetite is okay. No diarrhea. No blood in the stools. Was micturating okay. In the ER even after 3 L of fluid bolus his blood pressure was still low. ICU was contacted. Patient was started on Levophed drip. A-line was placed. Blood pressure improved with Levophed drip. White count came back 22.13. Repeat hemoglobin was 9.2. VBG came pH of 7.27. Sodium 131. Potassium 3.4. CO2 11. Creatinine 1.4. Lactate 8.1. Serum Osmolality 309. Glucose 214. Magnesium 2.6. Ionized calcium 1.08. Initial troponin 23. Repeat troponin 86. TSH is 9.3 and free T4 0.5. Ethyl alcohol 167.Two Amp of bicarb and calcium gluconate was given in the ER by critical care. Empiric antibiotics Dapto and Zosyn were started. Patient somewhat drowsy but answering appropriately and able to give history. Syncope and collapse Hemorrhagic Shock Acute blood loss anemia. Hemoglobin 9.2 Bleeding from the right distal varicose vein ,currently stopped Metabolic acidosis Lactic acidosis. Lactic is 8.1 and repeat lactic is 3.7 -> 1.5 Received 4 L of IV normal saline Received 1 unit of PRBC. Monitor H&H, current Hgb 9.6 - stable On admission, patient was started on Levophed drip for persistent hypotension - hypotension now resolved, off pressor received 2 amp of bicarb and calcium gluconate on admission to ICU Empiric antibiotics Dapto and Zosyn Rule out sepsis Follow cultures - no growth in 24 hrs Close monitor hemodynamics Patient on zolpidem as needed and oxycodone as needed at home Received a dose of fomepizole. CT head, CTA chest and abdomen pelvis obtained - unremarkable Pt is much improved, and hemodynamically stable, was downgraded from ICU BP actually elevated now and resuming home lisinopril Hgb stable Mental status back to baseline He is tolerating diet Plan to follow up w/ pcp after dc Elevated troponin Mostly demand ischemia serial enzymes, echo obtained Cardiology consulted - no cardiac concerns but pt needs to follow up w/ pcp Obstructive sleep apnea Obesity On CPAP nightly Alcoholism Alcohol 167 thiamine and folic acid Closely monitor for any withdrawals GUIDO - resolved Creatinine 1.4 -> 1 Avoid nephrotoxic agents received fluids History of prediabetes Sugars are in 200s Current HbA1c 5.7% follow up w/ pcp Abnormal thyroid function TSH 9.3 Free T4 0.58 Recommend repeating and follow up w/pcp Back pain Degenerative disc disease Lumbar spinal stenosis resumed home pain medications Generalized anxiety disorder resumed home Zoloft Hypertension Resume lisinopril as BP now elevated Total Time Total Time Spent Total Time Spent (In Minutes): 40 Discharge Plan Discharge Items Patient Disposition: Home - Self-Care Reason For Visit: SYNCOPE, HYPOTENSION, BLEEEDING FROM VARICOSE VIEI Discharge Diagnosis: Hemorrhagic shock Metabolic acidosis, lactic acidosis Activity: Per Instructions section Non-emergency contact: Primary Care Provider Call non-emergency contact if: you have any medication questions and your symptoms worsen Follow-up/Referrals: Dsehaun Pop MD [Primary Care Provider] - Diet: Regular Addtl Attending Provider Instructions: Follow up with your primary care doctor within 1 week. Recommend rechecking thyroid function, and following up on prediabetes. Make sure to stay well hydrated and closely monitor for any more bleeding or signs of infection. Pending Studies at Discharge: Yes Studies:: final results of blood cultures Stand-Alone Forms: My [facility], Smoking Cessation Medications and DC Order Prescriptions: Continued sertraline 100 mg tablet 200 mg PO DAILY meloxicam 7.5 mg tablet 7.5 - 15 mg PO DAILY PRN (Reason: Pain) Rx Instructions: 1-2 tab po daily prn pain zolpidem 10 mg Tablet 10 mg PO HS PRN (Reason: Insomnia) lisinopril 40 mg tablet 40 mg PO DAILY pregabalin 200 mg Capsule 200 mg PO BID oxycodone 10 mg tablet 10 mg PO Q6H PRN (Reason: Severe Pain (Scale Score 7-10)) Discharge Orders: Discharge Order (Routine); Ordered 07/13/24 Ordered By: Rell Oconnell Admission Data Admit Date/Time: 07/12/24 06:16 Attending Provider: Rell Oconnell Admit Provider: Jose Francisco Zuniga Primary Care Provider: Deshaun Pop Other Providers: Jose Francisco Zuniga; Duke Demarco; Mak Olvera
[2024-07-13 10:27] VITALS: PULSE 78
== END 2024-07-13 12:00 | disposition home or self-care (01) | DRG 872 ==
LOC: ED 04:13 → 1E 06:16